=== PATIENT | female | born 1970 | race Caucasian/White ===

== ENCOUNTER 2016-03-17 16:53 | Emergency (ER) | payer OTHER ==
[~2016-03-17] VITALS: Ht 157.5 cm; Wt 68.9 kg
[~2016-03-17 16:53] MED LIST: CARB25TA12 PO; CLON1TAB3 PO; CYCL5TAB PO; DIPH25CA37 PO; DULO-24 PO; ESCI1TAB6 PO; IBUP-103 PO; LTH300C PO; MECL1TAB42 PO; NAPR1CAP12 PO; PANT1TAB48 PO; PRAZ1CAP28 PO; RANI300T PO; SIMV40TA2 PO
[2016-03-17 16:57] VITALS: TEMP 37; Ht 157.5 cm; Wt 68.9 kg
[2016-03-17] MEDS ORDERED: ACETAMINOPHEN 500 MG TAB PO STA (17:08)
[2016-03-17] MEDS ORDERED: KETOROLAC TROMETHAMINE 30 MG/ML VIAL IV STA (17:08)
[2016-03-17] MEDS ORDERED: SODIUM CHLORIDE 0.9% 1000ML 1,000 ML IV STA (17:08)
[2016-03-17] MEDS ORDERED: HYDROmorphone INJ 1 MG/ML SYR IV STA (17:08)
--- NOTE | 2016-03-17 17:14 | EMERGENCY ROOM VISIT NOTE ---
History Report prepared by Wiliam: Forest Davila Under the Supervision of: Dr. Queta Yuen M.D. 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 She states she was standing on a cardboard boxes while trying to stack other cardboard boxes when she lost her balance and fell onto her buttock. She adds that boxes fell on top of her after she fell. She reports falling from a height of about 8 to 10 feet, and denies hitting her head as her friend was able to somewhat catch her. She fell mostly on her left side. The patient notes feeling numbness and burning down her legs into her feet and toes, left worse than right. She denies taking any blood thinners. 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 The patient denies head pain. Review of Systems See HPI for pertinent positives & negatives. A total of 10 systems reviewed and were otherwise negative. Past Medical & Surgical Medical Problems: (1) Anxiety (2) Depression (3) History of - section (4) Hyperlipidemia Family History Diabetes mellitus FH: cancer FH: gallbladder disease FH: heart disease Hypertension Kidney disease Kidney stones Social History Smoking Status: Current Every Day Smoker Alcohol Use: occasionally Marital Status: Housing Status: lives with family Occupation Status: unemployed Current/Historical Medications Scheduled Carbidopa/Levodopa (Sinemet 25MG/100MG), 1 TAB PO HS Doxycycline Hyclate (Doxycycline Hyclate), 100 TAB PO BID Escitalopram Oxalate (Lexapro), Unknown Dose PO DAILY [place] Carbonate ([place] Carbonate), 300 MG PO BID Pantoprazole (Protonix), 40 MG PO DAILY Prazosin Hcl (Prazosin), 2 MG PO HS Ranitidine Hcl (Zantac), 300 MG PO BID Simvastatin (Zocor), 40 MG PO QPM Scheduled PRN Clonazepam (Klonopin), 1 MG PO TID PRN for Anxiety Cyclobenzaprine Hcl (Flexeril), 5 MG PO TID PRN for Muscle Spasm Diphenhydramine Hcl (Sleep) (Diphenhydramine Hcl), 50 TAB PO HS PRN for ALLERGIES Ibuprofen Tab (Advil), 200-400 MG PO UD PRN for Pain Meclizine Hcl (Meclizine Hcl), 25 MG PO TID PRN for Dizziness or Vertigo Naproxen Sodium (Aleve), 220 MG PO UD PRN for Pain Oxycodone/Acetaminophen 5MG/325MG (Percocet 5MG/325MG), 1-2 TABLETS PO Q4H PRN for Pain Allergies Coded Allergies: Adhesives (Verified Allergy, Mild, 03/17/16) Penicillins (Verified Allergy, Mild, HIVES, 03/17/16) Sulfa Drugs (Unverified Allergy, Unknown, hives, 03/17/16) Physical Exam Vital Signs Date Time Temp Pulse Resp B/P Pulse Ox O2 Delivery O2 Flow Rate FiO2 03/17/16 18:40 65 19 115/67 95 Room Air 03/17/16 16:57 37.0 91 18 155/92 95 Room Air Physical Exam CONSTITUTIONAL: Patient is in moderate painful distress. HEENT: No icterus, moist mucous membranes NECK: No meningismus, trachea is midline. CARDIOVASCULAR: Regular rate, normal perfusion RESPIRATORY: Unlabored breathing. Clear to auscultation. GASTROINTESTINAL: Non-tender GENITOURINARY: No flank tenderness MUSCULOSKELETAL: Full range of motion. Moderate midline of lumbar spine and tailbone tenderness. NEUROLOGIC: No acute gross focal deficits. PSYCHIATRIC: Normal affect SKIN: Normal for ethnicity. Medical Decision & Procedures ER Provider Diagnostic Interpretation: CT results as stated below per my review and radiologist interpretation. LUMBAR SPINE CT FINDINGS: No fractures. No subluxation. Paraspinal soft tissues are unremarkable. There is a small gallstone present. Evaluation the central canal is suboptimal due to the CT technique. However, there appears to be mild central canal narrowing at L4-L5 and L5-S1 due to a disc bulge and ligamentum and facet hypertrophy. This spaces are preserved. IMPRESSION: No fractures within the lumbar spine. Electronically signed by: Dustin Harris M.D. 03/17/2016 7:02 PM Dictated Date/Time: 03/17/2016 6:[address] FINDINGS: No fracture or dislocation within the pelvis or hips. The sacrum is intact. There are mild degenerative changes within the left sacroiliac joint. No evidence for soft tissue hematoma. IMPRESSION: No fracture or dislocation within the pelvis or hips. Electronically signed by: Dustin Harris M.D. 03/17/2016 7:06 PM Dictated Date/Time: 03/17/2016 7:02 PM Laboratory Results 03/17/16 17:05 Red Blood Count 4.34, Mean Corpuscular Volume 95.6, Mean Corpuscular Hemoglobin 33.9, Mean Corpuscular Hemoglobin Concent 35.4, Mean Platelet Volume 11.8, Neutrophils (%) (Auto) 63.1, Lymphocytes (%) (Auto) 29.5, Monocytes (%) (Auto) 4.7, Eosinophils (%) (Auto) 1.8, Basophils (%) (Auto) 0.8, Neutrophils # (Auto) 4.91, Lymphocytes # (Auto) 2.30, Monocytes # (Auto) 0.37, Eosinophils # (Auto) 0.14, Basophils # (Auto) 0.06 03/17/16 17:05 Test 03/17/16 17:05 03/17/16 17:13 White Blood Count 7.79 K/uL (4.8-10.8) Red Blood Count 4.34 M/uL (4.2-5.4) Hemoglobin 14.7 g/dL (12.0-16.0) Hematocrit 41.5 % (37-47) Mean Corpuscular Volume 95.6 fL (80-100) Mean Corpuscular Hemoglobin 33.9 pg (25-34) Mean Corpuscular Hemoglobin Concent 35.4 g/dl (32-36) Platelet Count 284 K/uL (130-400) Mean Platelet Volume 11.8 fL (7.4-10.4) Neutrophils (%) (Auto) 63.1 % Lymphocytes (%) (Auto) 29.5 % Monocytes (%) (Auto) 4.7 % Eosinophils (%) (Auto) 1.8 % Basophils (%) (Auto) 0.8 % Neutrophils # (Auto) 4.91 K/uL (1.4-6.5) Lymphocytes # (Auto) 2.30 K/uL (1.2-3.4) Monocytes # (Auto) 0.37 K/uL (0.11-0.59) Eosinophils # (Auto) 0.14 K/uL (0-0.5) Basophils # (Auto) 0.06 K/uL (0-0.2) RDW Standard Deviation 45.6 fL (36.4-46.3) RDW Coefficient of Variation 12.9 % (11.5-14.5) Immature Granulocyte % (Auto) 0.1 % Immature Granulocyte # (Auto) 0.01 K/uL (0.00-0.02) Anion Gap 11.0 mmol/L (3-11) Est Creatinine Clear Calc Drug Dose 73.4 ml/min Estimated GFR () 91.4 Estimated GFR (Non- 78.8 BUN/Creatinine Ratio 12.5 (10-20) Calcium Level 8.9 mg/dl (8.5-10.1) Ethyl Alcohol mg/dL < 3.0 mg/dl (0-3) Urine Color DK YELLOW Urine Appearance CLOUDY (CLEAR) Urine pH 5.0 (4.5-7.5) Urine Specific [place] 1.022 (1.000-1.030) Urine Protein NEG (NEG) Urine Glucose (UA) NEG (NEG) Urine Ketones TRACE (NEG) Urine Occult Blood 2+ (NEG) Urine Nitrite NEG (NEG) Urine Bilirubin NEG (NEG) Urine Urobilinogen NEG (NEG) Urine Leukocyte Esterase NEG (NEG) Urine WBC (Auto) 5-10 /hpf (0-5) Urine RBC (Auto) 10-30 /hpf (0-4) Urine Hyaline Casts (Auto) 1-5 /lpf (0-5) Urine Epithelial Cells (Auto) >30 /lpf (0-5) Urine Bacteria (Auto) NEG (NEG) Urine Renal Epithelial Cells 0-5 /lpf (0-5) Urine Pathogenic Casts /lpf (0) Urine Mucus PRESENT (NONE PRSENT) Urine Yeast (Auto) (NONE PRSENT) Urine Opiates Screen NEG (NEG) Urine Methadone, Qualitative NEG (NEG) Urine Barbiturates NEG (NEG) Urine Phencyclidine (PCP) Level NEG (NEG) Ur Amphetamine/Methamphetamine NEG (NEG) MDMA (Ecstasy) Screen NEG (NEG) Urine Benzodiazepines Screen NEG (NEG) Urine Cocaine Metabolite NEG (NEG) Urine Marijuana (THC) NEG (NEG) Labs reviewed by ED physician. Medications Administered Medications (Trade) Dose Ordered Sig/Teddy Route Start Time Stop Time Status Last Admin Dose Admin Acetaminophen 1000 mg 1,000 mg NOW STAT PO 03/17/16 17:08 03/17/16 17:09 DC 03/17/16 17:34 1,000 MG Sodium Chloride (Nss 1000ml) 1,000 ml @ 0 mls/hr Q0M STAT IV 03/17/16 17:08 03/17/16 17:09 DC 03/17/16 17:34 999 MLS/HR Ketorolac Tromethamine (Toradol Inj) 30 mg NOW STAT IV 03/17/16 17:08 03/17/16 17:09 DC 03/17/16 17:08 30 MG Hydromorphone HCl (Dilaudid Inj) 1 mg PRN STAT IV 03/17/16 17:08 03/17/16 17:09 DC 03/17/16 17:35 1 MG ED Course 1702: Past medical records reviewed. The patient was evaluated in room A12A. A complete history and physical examination was performed. 1708: Ordered Dilaudid Inj 1 mg IV, Toradol Inj 30 mg IV, NSS 1,000 ml @ 0 mls/ hr Wide Open IV, and Tylenol Tab 1,000 mg PO. 1930: Upon reexamination the patient is hemodynamically stable. I discussed results and treatment plan with the patient. She verbalizes agreement and understanding. The patient is ready for discharge. Medical Decision Differentials include fracture, and spinal cord injury. 46-year-old presents to the emergency room after work-related injury. She reports she was on top of several boxes and moving them when she fell backwards roughly 8 feet striking her buttox. One of her coworkers partially caught her and there was subsequently no head nor other extremity injuries. She complains only of lower L spine and tailbone pain especially with walking. She is neurologically intact with 2+ patellar reflexes and good dorsiflexion of the toes bilaterally without neurologic sensory deficits. CTs were negative for fracture patient was subsequently discharged and given prescription for Percocet. Impression Primary Impression: Contusion Additional Impressions: Contusion of multiple sites Fall Scribe Attestation The scribe's documentation has been prepared under my direction and personally reviewed by me in its entirety. I confirm that the note above accurately reflects all work, treatment, procedures, and medical decision making performed by me. Departure Information Dispostion Home / Self-Care Prescriptions Oxycodone/Acetaminophen 5MG/325MG (PERCOCET 5MG/325MG) Tab 1-2 TABLETS PO Q4H Y for Pain, #20 TAB Prov: Queta Yuen MD 03/17/16 Referrals Tuyet Griffith D.O. (PCP) Patient Instructions ED Contusion Back, My [facility] Problem Qualifiers
[2016-03-17 17:32] LABS: BASO % 0.8 %; BASO ABS # 0.06 K/uL (0-0.2); COMPLETE YES; EOS % 1.8 %; HEMATOCRIT 41.5 % (37-47); IG% 0.1 %; LYMPH % 29.5 %; MEAN CELL VOLUME 95.6 fL (80-100); MEAN CORPUSCULAR HEMOGLOBIN 33.9 pg (25-34); MEAN CORPUSCULAR HGB CONC 35.4 g/dl (32-36); MEAN PLATELET VOLUME 11.8 fL (7.4-10.4); MONO % 4.7 %; NEUT % 63.1 %; PLATELET COUNT 284 K/uL (130-400); RED BLOOD COUNT 4.34 M/uL (4.2-5.4); WHITE BLOOD COUNT 7.79 K/uL (4.8-10.8)
[2016-03-17 17:51] LABS: BUN/CREATININE RATIO 12.5 (10-20); CALCIUM 8.9 mg/dl (8.5-10.1); CREATININE 0.89 mg/dl (0.60-1.20); POTASSIUM 3.4 mmol/L (3.5-5.1)
[2016-03-17] MEDS ORDERED: DOXY100T PO (18:11)
[2016-03-17] MEDS ORDERED: DIPH50TA10 PO (18:11)
--- NOTE | 2016-03-17 19:03 | DIAGNOSTIC IMAGING REPORT ---
LUMBAR SPINE CT CT DOSE: HISTORY: Low back pain. fall 10ft TECHNIQUE: Multiaxial CT images of the lumbar spine were performed and reformatted in the sagittal and coronal plane without the use of contrast. COMPARISON: None. FINDINGS: No fractures. No subluxation. Paraspinal soft tissues are unremarkable. There is a small gallstone present. Evaluation the central canal is suboptimal due to the CT technique. However, there appears to be mild central canal narrowing at L4-L5 and L5-S1 due to a disc bulge and ligamentum and facet hypertrophy. This spaces are preserved. IMPRESSION: No fractures within the lumbar spine. Electronically signed by: Dustin Harris M.D. 03/17/2016 7:02 PM Dictated Date/Time: 03/17/2016 6:57 PM
[2016-03-17 19:07] LABS: URINE APPEARANCE CLOUDY (CLEAR); URINE BILIRUBIN NEG (NEG); URINE COLOR DK YELLOW; URINE EPITHELIAL CELL AUTO >30 /lpf (0-5); URINE NITRITE NEG (NEG); URINE SPECIFIC GRAVITY 1.022 (1.000-1.030); UROBILINOGEN NEG (NEG)
--- NOTE | 2016-03-17 19:08 | DIAGNOSTIC IMAGING REPORT ---
PELVIS CT CT DOSE: 1264.47 mGy.cm HISTORY: Pelvic pain. fall 10ft TECHNIQUE: Multiaxial CT images of the pelvis were performed and reformatted in the sagittal and coronal plane without the use of contrast. COMPARISON: Abdomen and pelvis CT 01/04/2013. FINDINGS: No fracture or dislocation within the pelvis or hips. The sacrum is intact. There are mild degenerative changes within the left sacroiliac joint. No evidence for soft tissue hematoma. IMPRESSION: No fracture or dislocation within the pelvis or hips. Electronically signed by: Dustin Harris M.D. 03/17/2016 7:06 PM Dictated Date/Time: 03/17/2016 7:02 PM
[2016-03-17 19:13] LABS: MANUAL MICROSCOPIC REQUIRED? NO; REVIEW REQ? YES
[2016-03-17 19:18] LABS: URINE MUCUS PRESENT (NONE PRSENT)
[2016-03-17 19:27] LABS: BENZODIAZEPINE, URINE NEG (NEG); COCAINE,URINE NEG (NEG); PHENCYCLIDINE, URINE NEG (NEG)
[2016-03-17] MEDS ORDERED: OXYC-57 PO (19:28)
[2016-03-17 19:58] VITALS: BP 137/90; PULSE 72; O2SAT 94
== END 2016-03-17 19:58 | disposition home or self-care (01) ==
LOC: C.EDB 16:54 → C.EDA 19:58
DX: T14.8 Other injury of unspecified body region (principal); W19.XXXA Unspecified fall, initial encounter; E78.5 Hyperlipidemia, unspecified; F17.200 Nicotine dependence, unspecified, uncomplicated

== ENCOUNTER 2017-10-16 12:46 | Inpatient (IN) | payer OTHER ==
[~2017-10-16] VITALS: Ht 167.6 cm; Wt 75.4 kg
[~2017-10-16 12:46] MED LIST changes: -CLON1TAB3 PO; +CLON1TAB4 PO; -DIPH25CA37 PO; +DIPH50TA10 PO; +DOXY100T PO; -DULO-24 PO; +PANT1TAB3 PO; -PANT1TAB48 PO
[2017-10-16 13:24] LABS: BASO % 0.5 %; BASO ABS # 0.04 K/uL (0-0.2); EOS % 2.8 %; EOS ABS # 0.25 K/uL (0-0.5); HEMATOCRIT 43.6 % (37-47); IG# 0.01 K/uL (0.00-0.02); LYMPH % 26.9 %; LYMPH ABS # 2.37 K/uL (1.2-3.4); MEAN CELL VOLUME 97.8 fL (80-100); MEAN CORPUSCULAR HEMOGLOBIN 33.6 pg (25-34); MEAN CORPUSCULAR HGB CONC 34.4 g/dl (32-36); MEAN PLATELET VOLUME 11.6 fL (7.4-10.4); MONO ABS # 0.35 K/uL (0.11-0.59); NEUT % 65.7 %; PLATELET COUNT 303 K/uL (130-400); RED CELL DISTRIBUTION WIDTH CV 13.2 % (11.5-14.5); RED CELL DISTRIBUTION WIDTH SD 46.9 fL (36.4-46.3); WHITE BLOOD COUNT 8.82 K/uL (4.8-10.8)
--- NOTE | 2017-10-16 13:37 | DIAGNOSTIC IMAGING REPORT ---
CHEST ONE VIEW PORTABLE CLINICAL HISTORY: 47 years-old Female presenting with CHEST PAIN. TECHNIQUE: Portable upright AP view of the chest was obtained. COMPARISON: 02/09/2016. FINDINGS: Cardiomediastinal silhouette normal. No focal opacity. No large effusion or pneumothorax. Osseous structures normal. Upper abdomen normal. IMPRESSION: 1. No acute cardiopulmonary disease. Electronically signed by: Georges Bloom M.D. 10/16/2017 1:35 PM Dictated Date/Time: 10/16/2017 1:35 PM
[2017-10-16 13:48] LABS: ALBUMIN 3.6 gm/dl (3.4-5.0); ALKALINE PHOSPHATASE 179 U/L (45-117); ALT/SGPT 35 U/L (12-78); AST/SGOT 22 U/L (15-37); BLOOD UREA NITROGEN 6 mg/dl (7-18); CALCIUM 8.9 mg/dl (8.5-10.1); CARBON DIOXIDE 25 mmol/L (21-32); CREATININE 0.76 mg/dl (0.60-1.20); GLUCOSE 105 mg/dl (70-99); LIPASE 214 U/L (73-393); POTASSIUM 3.3 mmol/L (3.5-5.1); SODIUM 141 mmol/L (136-145); TOTAL PROTEIN 7.4 gm/dl (6.4-8.2)
[2017-10-16] MEDS ORDERED: POTASSIUM CHLORIDE 10 MEQ TABCR PO STA ×2 (14:11→23:09)
[2017-10-16] MEDS ORDERED: HEPARIN SOD (PORCINE) 1000 UNIT/ML 10 ML VIAL IV ONE (14:30)
[2017-10-16 14:36] LABS: PTT PATIENT 27.3 SECONDS (21.0-31.0)
[2017-10-16] MEDS ORDERED: ABL15 PO (14:38)
[2017-10-16] MEDS ORDERED: PROP40TA5 PO (14:38)
[2017-10-16] MEDS ORDERED: ATR25 PO (14:38)
[2017-10-16] MEDS ORDERED: VORT10TA12 PO (14:38)
[2017-10-16] MEDS ORDERED: PRAZ2CAP3 PO (14:38)
[2017-10-16] MEDS ORDERED: CARB25TA12 PO (14:39)
[2017-10-16] MEDS: HEPARIN 25,000 UNIT/500ML D5W 500 ML IV SCH ×2 (14:55→21:10)
[2017-10-16] MEDS ORDERED: NITROGLYCERIN 0.4 MG SL PER TAB CHARGE SL PRN (15:00)
[2017-10-16] MEDS ORDERED: ACETAMINOPHEN 325 MG TAB PO PRN (15:00)
[2017-10-16] MEDS ORDERED: IV FLUIDS COMPLETED PRN (15:15)
[2017-10-16] MEDS ORDERED: AMLODIPINE BESYLATE 5 MG TAB PO STA (15:19)
[2017-10-16 15:40] VITALS: BP 143/90; PULSE 69; TEMP 36.9; Ht 167.6 cm; Wt 75.4 kg
--- NOTE | 2017-10-16 15:40 | EMERGENCY ROOM VISIT NOTE ---
History Report prepared by Wiliam: Chani Garzon Under the Supervision of: Dr. Malcolm Young M.D. First contact with patient: 12:51 Stated Complaint: CP History of Present Illness The patient is a 47 year old female who presents to the Emergency Room with complaints of chest pain beginning yesterday afternoon. As per nursing staff, she was at [facility] yesterday and was walking around when she suddenly developed chest pain. It has been intermittent since then however, it worsened today while she was walking around the [facility]. Taking a deep breath worsens her pain and she has some left arm pain. She describes her chest pain as a pressure and as if "someone is sitting on her chest" The patient denies any SOB, fever, nausea, or vomiting. She has a family history of cardiac problems, is a current smoker, and takes Simvastatin for her high cholesterol. Dr. Gaming, Piercer Operator is her doctor. Source of History: patient Onset: yesterday afternoon Position: chest Quality: other (like "someone is sitting on her chest" ) Timing: intermittent Modifying Factors (Worsening): other (taking a deep breath) Associated Symptoms: No fevers, No nausea, No vomiting Review of Systems See HPI for pertinent positives and negatives. A total of ten systems were reviewed and were otherwise negative. Past Medical & Surgical Medical Problems: (1) Anxiety (2) Depression (3) History of - section (4) Hyperlipidemia (5) PTSD (post-traumatic stress disorder) (6) Restless leg syndrome (7) Tobacco abuse Surgical Problems: (1) History of arthroscopy of right knee (2) History of delivery (3) History of colonoscopy (4) History of recent dental procedure Family History Diabetes mellitus FH: cancer FH: gallbladder disease FH: heart disease Hypertension Kidney disease Kidney stones Social History Smoking Status: Current Every Day Smoker Alcohol Use: occasionally Marital Status: Housing Status: lives with family Occupation Status: unemployed Current/Historical Medications Scheduled Aripiprazole (Abilify), 15 MG PO DAILY Carbidopa/Levodopa (Sinemet 25MG/100MG), 1 TAB PO TID Pantoprazole (Protonix), 40 MG PO DAILY Prazosin Hcl (Prazosin), 2 MG PO HS Propranolol Hcl (Propranolol Hcl), 40 MG PO BID Ranitidine Hcl (Zantac), 150 MG PO BID Simvastatin (Zocor), 40 MG PO QPM Allergies Coded Allergies: Adhesives (Verified Allergy, Mild, 10/16/17) Penicillins (Verified Allergy, Mild, HIVES, 10/16/17) Sulfa Drugs (Unverified Allergy, Unknown, hives, 10/16/17) Physical Exam Vital Signs Date Time Temp Pulse Resp B/P (MAP) Pulse Ox O2 Delivery O2 Flow Rate FiO2 10/16/17 14:46 78 165/104 100 Room Air 10/16/17 14:04 84 150/100 97 Room Air 10/16/17 13:06 97 Room Air 10/16/17 13:06 96 Room Air 10/16/17 12:55 Room Air 10/16/17 12:55 37.1 71 20 167/98 Room Air 10/16/17 12:54 72 Physical Exam GENERAL: Awake, alert, well-appearing, in no distress HENT: Normocephalic, atraumatic. Oropharynx unremarkable. EYES: Normal conjunctiva. Sclera non-icteric. NECK: Supple. No nuchal rigidity. RESPIRATORY: Clear to auscultation. No wheezes. Normal respiratory effort. CARDIAC: Normal rate. Normal rhythm. Extremities warm and well perfused. GI: Soft, non-distended. No tenderness to palpation. No rebound or guarding. RECTAL: Deferred. MUSCULOSKELETAL: Atraumatic. Chest examination reveals no tenderness. LOWER EXTREMITIES: Calves are equal size bilaterally and non-tender. No edema NEURO: Normal sensorium. No sensory or motor deficits noted. No facial droop. SKIN: Warm and dry. No jaundice noted. Medical Decision & Procedures ER Provider Diagnostic Interpretation: Radiology results as stated below per my review and radiologist interpretation: CHEST ONE VIEW PORTABLE CLINICAL HISTORY: 47 years-old Female presenting with CHEST PAIN. TECHNIQUE: Portable upright AP view of the chest was obtained. COMPARISON: 02/09/2016. FINDINGS: Cardiomediastinal silhouette normal. No focal opacity. No large effusion or pneumothorax. Osseous structures normal. Upper abdomen normal. IMPRESSION: 1. No acute cardiopulmonary disease. Electronically signed by: Georges Bloom M.D. 10/16/2017 1:35 PM Laboratory Results 10/16/17 13:19 Red Blood Count 4.46, Mean Corpuscular Volume 97.8, Mean Corpuscular Hemoglobin 33.6, Mean Corpuscular Hemoglobin Concent 34.4, Mean Platelet Volume 11.6, Neutrophils (%) (Auto) 65.7, Lymphocytes (%) (Auto) 26.9, Monocytes (%) (Auto) 4.0, Eosinophils (%) (Auto) 2.8, Basophils (%) (Auto) 0.5, Neutrophils # (Auto) 5.80, Lymphocytes # (Auto) 2.37, Monocytes # (Auto) 0.35, Eosinophils # (Auto) 0.25, Basophils # (Auto) 0.04 10/16/17 13:19 Test 10/16/17 13:19 White Blood Count 8.82 K/uL (4.8-10.8) Red Blood Count 4.46 M/uL (4.2-5.4) Hemoglobin 15.0 g/dL (12.0-16.0) Hematocrit 43.6 % (37-47) Mean Corpuscular Volume 97.8 fL (80-100) Mean Corpuscular Hemoglobin 33.6 pg (25-34) Mean Corpuscular Hemoglobin Concent 34.4 g/dl (32-36) Platelet Count 303 K/uL (130-400) Mean Platelet Volume 11.6 fL (7.4-10.4) Neutrophils (%) (Auto) 65.7 % Lymphocytes (%) (Auto) 26.9 % Monocytes (%) (Auto) 4.0 % Eosinophils (%) (Auto) 2.8 % Basophils (%) (Auto) 0.5 % Neutrophils # (Auto) 5.80 K/uL (1.4-6.5) Lymphocytes # (Auto) 2.37 K/uL (1.2-3.4) Monocytes # (Auto) 0.35 K/uL (0.11-0.59) Eosinophils # (Auto) 0.25 K/uL (0-0.5) Basophils # (Auto) 0.04 K/uL (0-0.2) RDW Standard Deviation 46.9 fL (36.4-46.3) RDW Coefficient of Variation 13.2 % (11.5-14.5) Immature Granulocyte % (Auto) 0.1 % Immature Granulocyte # (Auto) 0.01 K/uL (0.00-0.02) Prothrombin Time 10.1 SECONDS (9.0-12.0) Prothromb Time International Ratio 1.0 (0.9-1.1) Activated Partial Thromboplast Time 27.3 SECONDS (21.0-31.0) Partial Thromboplastin Ratio 1.1 D-Dimer 400 ug/L FEU (0-500) Anion Gap 10.0 mmol/L (3-11) Est Creatinine Clear Calc Drug Dose 96.7 ml/min Estimated GFR () 109.8 Estimated GFR (Non- 94.7 BUN/Creatinine Ratio 7.9 (10-20) Calcium Level 8.9 mg/dl (8.5-10.1) Magnesium Level 2.3 mg/dl (1.8-2.4) Total Bilirubin 0.2 mg/dl (0.2-1) Direct Bilirubin < 0.1 mg/dl (0-0.2) Aspartate Amino Transf (AST/SGOT) 22 U/L (15-37) Alanine Aminotransferase (ALT/SGPT) 35 U/L (12-78) Alkaline Phosphatase 179 U/L (45-117) Total Creatine Kinase 94 U/L (26-192) Total Protein 7.4 gm/dl (6.4-8.2) Albumin 3.6 gm/dl (3.4-5.0) Lipase 214 U/L (73-393) Thyroid Stimulating Hormone (TSH) 1.930 uIu/ml (0.300-4.500) Free Thyroxine 1.11 ng/dl (0.80-1.60) Laboratory results reviewed by me Medications Administered Medications (Trade) Dose Ordered Sig/Teddy Route Start Time Stop Time Status Last Admin Dose Admin Heparin Sodium/ Dextrose 1 ea NOW STAT N/A 10/16/17 14:09 10/16/17 14:11 DC 10/16/17 14:09 1 EA Potassium Chloride (Klor-Con M10) 40 meq NOW STAT PO 10/16/17 14:11 10/16/17 14:18 DC 10/16/17 14:50 40 MEQ Heparin Sodium/ Dextrose 500 ml @ 24 mls/hr [id number] IV 10/16/17 14:30 11/15/17 14:29 10/16/17 14:55 16 MLS/HR Heparin Sodium (Porcine) (Heparin Iv Bolus) 4,000 unit NOW ONCE IV 10/16/17 14:30 10/16/17 14:31 DC 10/16/17 14:51 4,000 UNIT ECG Per My Interpretation Indication: chest pain Rate (beats per minute): 65 Rhythm: normal sinus Findings: no ectopy (normal intervals, no ST segment elevation, Lead III T- wave flattening) Comparison ECG Date: 02/09/16 Change: no significant change ED Course 1253: The patient was evaluated in room C5. A complete history and physical exam was performed. 1408: Discussed the patient's case with MARTY Richardson. The patient will be evaluated for further treatment and disposition. Medical Decision Triage Nursing notes reviewed. Differential diagnosis: Etiologies such as cardiac ischemia, aortic dissection, pulmonary embolism, pneumonia, pneumothorax, musculoskeletal, infections, pericarditis, myocarditis , esophageal rupture, gastrointestinal, as well as others were entertained. Patient presents after intermittent left upper chest pain described as a pressure over the last day. No shortness of breath associated. No trauma associated. Did do some lifting yesterday but not reproducible on palpation or with movement of the arm. Significant family history of cardiac disease early along with personal history of hyperlipidemia and tobacco use. States her brother had a heart attack in his early 50s. Given aspirin prior to arrival but does not take regularly. Pain-free upon evaluation. D-dimer was sent with lower suspicion for PE. EKG here without significant change however prehospital EKG does show some suspected lead III T-wave inversions/ST depression and aVF ST depression. This was taken half an hour prior to arrival when she was experiencing the pain. Chest x-ray completed without acute findings and doubt dissection. D-dimer negative. Doubt intra-abdominal complaints. Less likely gastric. Troponin positive however the patient without active chest pain now. Will start IV heparin at this time given clinical concern. Patient already received aspirin. Will admit for further cardiac evaluation. Medication Reconcilliation Current Medication List: was personally reviewed by me Blood Pressure Screening Patient's blood pressure: Elevated blood pressure Referred to Hospitalist Consults Time Called: 1406 Consulting Physician: MARTY Richardson Returned Call: 1408 Discussed the patient's case with MARTY Richardson. The patient will be evaluated for further treatment and disposition. Impression Primary Impression: NSTEMI (non-ST elevated myocardial infarction) Critical Care I have personally spent greater than 30 minutes of critical care time in the direct management of this patient. This includes bedside care, interpretation of diagnostic studies, and testing, discussion with consultants, patient, and family members, and other required patient management activities. This 30 minutes is in excess of all separately billable procedures. Scribe Attestation The scribe's documentation has been prepared under my direction and personally reviewed by me in its entirety. I confirm that the note above accurately reflects all work, treatment, procedures, and medical decision making performed by me. Departure Information Dispostion Being Evaluated By Hospitalist (MARTY Richardson)
--- NOTE | 2017-10-16 15:57 | CARDIOLOGY CONSULTATION ---
DATE OF CONSULTATION: 10/16/2017 INPATIENT CONSULTATION CONSULTATION REQUESTED BY: Dr. Caceres. REASON FOR CONSULTATION: Chest pain. HISTORY OF PRESENT ILLNESS: Mrs. Holcomb is a 47-year-old woman who presented to [facility] Emergency Department on 10/16/2017 with a complaint of chest discomfort. The patient states that her chest discomfort started approximately 24 hours prior to presentation. She states that [facility], [facility] she suddenly developed chest discomfort. She described it as a dull achy/pressure sensation over her left breast that radiated up into her left shoulder. It was associated with some lightheadedness and dizziness; however, she denied any associated shortness of breath, diaphoresis, nausea, palpitations or syncope. She states the discomfort was noticeable, but not severe enough that made her stop walking. She continued on shopping and after about 3 minutes, the discomfort resolved. She states that then came back a few minutes later and continued to wax and wane for moments at a time, off and on until this morning. This morning, the pain continued, but while she was at the [employer], she did not feel well overall and came into the Emergency Department. In the Emergency Department, her EKG was performed and was unremarkable; however, initial troponin was minimally elevated at 0.45 and she was started on heparin drip by the ER team. Also of note, upon presentation, her blood pressure has been elevated, initially 167/98 followed by 150/100, followed by 145/110. Currently, she is without complaint at rest and states that she is not in any discomfort for approximately the last hour. She also denies any previously similar episodes. PAST SURGICAL HISTORY: 1. Tubal ligation. 2. Upper endoscopy. 3. . 4. Arthroscopic knee procedure. MEDICAL ILLNESSES: 1. Tobacco abuse. 2. Dyslipidemia. 3. Depression. 4. Restless leg syndrome. FAMILY HISTORY: Remarkable for father and brother both developed coronary artery disease in their 50s. SOCIAL HISTORY: The patient is a lifelong smoker and continues to smoke a pack a day. Denies any alcohol or recreational drug use. She is . She has 4 children. 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 REVIEW OF SYSTEMS: As per HPI. All other review of systems reviewed and negative at this time. ALLERGIES: 1. PENICILLIN. 2. ADHESIVE TAPE. MEDICATIONS AN OUTPATIENT: 1. Prazosin 2 mg at bedtime. 2. Lexapro daily. 3. Abilify daily. 4. Simvastatin 40 mg daily. 5. Sinemet 3 times a day. 6. Ranitidine b.i.d. PHYSICAL EXAMINATION: VITALS: Temperature 37.1, pulse 84, respiratory rate 12, blood pressure 145/110. GENERAL: Awake, alert, oriented x3, in no acute distress. HEENT: Normocephalic, atraumatic. Pupils equal, round, reactive to light and accommodation. Extraocular muscles intact. Anicteric sclerae. Moist mucous membranes. Poor dentition. NECK: No JVD, no bruit. CARDIOVASCULAR: Regular. No S4. Normal S1 and S2. No S3. No murmurs, rubs or gallops. PULMONARY: Decreased breath sounds bilaterally, but clear. No rales, rhonchi, or wheezing. ABDOMEN: Bowel sounds x4, soft. No rebound, guarding, tenderness. No organomegaly. EXTREMITIES: No clubbing, cyanosis or edema. +2 pedal pulses bilaterally. SKIN: Warm and dry. TEST RESULTS: A 12-lead EKG performed in the Emergency Department independently reviewed at this time shows normal sinus rhythm at 65 beats per minute, normal axis, normal intervals, no signs of ischemia, normal study. LABORATORY STUDIES OF SIGNIFICANCE: Sodium 141, potassium 3.3, BUN 6, creatinine 0.76. Troponin of 0.45. Alkaline phosphatase of 179. IMPRESSION: 1. Chest discomfort. 2. Uncontrolled hypertension. 3. Tobacco abuse. 4. Family history of premature coronary artery disease. RECOMMENDATIONS: It was my pleasure to see Mrs. Holcomb in consultation today. The patient was counseled on the possible differential diagnosis of her chest discomfort including ischemic disease as well as possible hypertensive urgency. So given the fact the patient is pain free at this time, I will continue heparin drip until a second set comes back, and should it start to trend down, it can be discontinued. So I believe there may be hypertensive component to this. So, she will be started on amlodipine low dose 2.5 mg and her blood pressure will be followed. Otherwise, a 2D echocardiogram will be performed now to evaluate for any regional wall motion abnormalities and ____ significant wall motion abnormalities be present, then cardiac catheterization will be performed and the timing of which will be based on her symptoms. Otherwise, absolute smoking cessation was counseled.
--- NOTE | 2017-10-16 15:59 | History and Physical ---
History & Physical Date & Time of Service: Oct 16, 2017 at 15:05 Chief Complaint: CP Primary Care Physician: Radha Gaming DO History of Present Illness Source: patient This is a 47-year-old female who has a significant PMH of HLD, anxiety, depression, PTSD, RLS, GERD who presented to [facility] with intermittent chest pain 1 day. Chest pain initially started yesterday afternoon, was intermittent in nature, lasting 10-15 minutes, substernal with left arm radiation and tingling, occurring at rest and when exerting herself, like walking. Today patient was walking at [facility] when she developed substernal chest pain that radiated to her left arm, lasted approximately 10-15 minutes, resolved with rest. With chest pain episodes she denies shortness of breath, palpitations, hemopytsis, lightheadedness, dizziness, fever, chills, sweats, change in vision, change in hearing, nausea, vomiting, diarrhea, change in bowel or bladder habits. Patient arrived via EMS, on site was given 4 chewable baby aspirin. Upon presenting to ED chest pain had subsided; however ECG [employer] revealed subtle inferior lead ST depressions. Initial troponin was elevated at 0.447, heparin drip initiated. Further lab work revealed negative d -dimer, relatively unremarkable CBC and BMP except hypokalemia at 3.3. Chest x- ray showed no acute cardiopulmonary abnormality. Throughout ED she was hypertensive with BP 150s/100s. Patient is being admitted for further workup of chest pain, HTN and elevated troponin. Past Medical/Surgical History Medical Problems: (1) Anxiety Status: Chronic (2) Depression Status: Chronic (3) Hyperlipidemia Status: Chronic (4) PTSD (post-traumatic stress disorder) Status: Chronic (5) Restless leg syndrome Status: Chronic (6) Tobacco abuse Status: Chronic Surgical Problems: (1) History of arthroscopy of right knee Status: Chronic (2) History of delivery Status: Chronic (3) History of colonoscopy Status: Chronic (4) History of recent dental procedure Status: Chronic Family History Diabetes mellitus FH: cancer FH: cerebral palsy SISTER FH: gallbladder disease FH: heart disease FATHER, Onset:50's - 60 BROTHER, Onset:50's - 60 Hypertension Kidney disease Kidney stones Social History Smoking Status: Current Every Day Smoker (30 pack year history) Smokeless Tobacco Use: No Alcohol Use: none Drug Use: none Housing status: lives with family Occupational Status: unemployed Immunizations History of Influenza Vaccine: Yes Influenza Vaccine Date: Nov 19, 2016 History of Tetanus Vaccine?: Yes Tetanus Immunization Date: Oct 10, 2009 History of Pneumococcal: Yes Pneumococcal Date: May 09, 2008 History of Hepatitis B Vaccine: Unknown Allergies Coded Allergies: Adhesives (Verified Allergy, Mild, 10/16/17) Penicillins (Verified Allergy, Mild, HIVES, 10/16/17) Sulfa Drugs (Unverified Allergy, Unknown, hives, 10/16/17) Home Medications Scheduled Aripiprazole (Abilify), 15 MG PO DAILY Carbidopa/Levodopa (Sinemet 25MG/100MG), 1 TAB PO TID Pantoprazole (Protonix), 40 MG PO DAILY Prazosin Hcl (Prazosin), 2 MG PO HS Propranolol Hcl (Propranolol Hcl), 40 MG PO BID Ranitidine Hcl (Zantac), 150 MG PO BID Simvastatin (Zocor), 40 MG PO QPM Review of Systems As noted per HPI, 10 systems reviewed and negative unless noted above. Physical Exam Vital Signs Date Time Temp Pulse Resp B/P (MAP) Pulse Ox O2 Delivery O2 Flow Rate FiO2 10/16/17 14:04 84 150/100 97 Room Air 10/16/17 13:06 97 Room Air 10/16/17 13:06 96 Room Air 10/16/17 12:55 Room Air 10/16/17 12:55 37.1 71 20 167/98 Room Air 10/16/17 12:54 72 General Appearance: WD/WN, no apparent distress, + pertinent finding (poorly groomed, requesting to go outside and smoke, engaging on phone during H and P) Head: normocephalic, atraumatic Eyes: normal inspection, sclerae normal ENT: normal ENT inspection, hearing grossly normal, + pertinent finding ( Mucous membranes moist, teeth absent) Neck: supple, no adenopathy, thyroid normal, no JVD Respiratory/Chest: chest non-tender, lungs clear, normal breath sounds, no respiratory distress, no accessory muscle use Cardiovascular: regular rate, rhythm, no edema, no gallop, no JVD, + systolic murmur (Soft 1/6 LASHON noted RUSB/LUSB) Abdomen/GI: normal bowel sounds, non tender, soft, no organomegaly Back: normal inspection, no muscle spasm Neurologic/Psych: no motor/sensory deficits, alert, normal mood/affect, oriented x 3 Skin: normal color, warm/dry, no rash Diagnostics Laboratory Results Results Past 24 Hours Test 10/16/17 13:19 Range/Units White Blood Count 8.82 4.8-10.8 K/uL Red Blood Count 4.46 4.2-5.4 M/uL Hemoglobin 15.0 12.0-16.0 g/dL Hematocrit 43.6 37-47 % Mean Corpuscular Volume 97.8 80-100 fL Mean Corpuscular Hemoglobin 33.6 25-34 pg Mean Corpuscular Hemoglobin Concent 34.4 32-36 g/dl Platelet Count 303 130-400 K/uL Mean Platelet Volume 11.6 7.4-10.4 fL Neutrophils (%) (Auto) 65.7 % Lymphocytes (%) (Auto) 26.9 % Monocytes (%) (Auto) 4.0 % Eosinophils (%) (Auto) 2.8 % Basophils (%) (Auto) 0.5 % Neutrophils # (Auto) 5.80 1.4-6.5 K/uL Lymphocytes # (Auto) 2.37 1.2-3.4 K/uL Monocytes # (Auto) 0.35 0.11-0.59 K/uL Eosinophils # (Auto) 0.25 0-0.5 K/uL Basophils # (Auto) 0.04 0-0.2 K/uL RDW Standard Deviation 46.9 36.4-46.3 fL RDW Coefficient of Variation 13.2 11.5-14.5 % Immature Granulocyte % (Auto) 0.1 % Immature Granulocyte # (Auto) 0.01 0.00-0.02 K/uL Prothrombin Time 10.1 9.0-12.0 SECONDS Prothromb Time International Ratio 1.0 0.9-1.1 Activated Partial Thromboplast Time 27.3 21.0-31.0 SECONDS Partial Thromboplastin Ratio 1.1 D-Dimer 400 0-500 ug/L FEU Sodium Level 141 136-145 mmol/L Potassium Level 3.3 3.5-5.1 mmol/L Chloride Level 106 98-107 mmol/L Carbon Dioxide Level 25 21-32 mmol/L Anion Gap 10.0 3-11 mmol/L Blood Urea Nitrogen 6 7-18 mg/dl Creatinine 0.76 0.60-1.20 mg/dl Est Creatinine Clear Calc Drug Dose 96.7 ml/min Estimated GFR () 109.8 Estimated GFR (Non- 94.7 BUN/Creatinine Ratio 7.9 10-20 Random Glucose 105 70-99 mg/dl Calcium Level 8.9 8.5-10.1 mg/dl Magnesium Level 2.3 1.8-2.4 mg/dl Total Bilirubin 0.2 0.2-1 mg/dl Direct Bilirubin < 0.1 0-0.2 mg/dl Aspartate Amino Transf (AST/SGOT) 22 15-37 U/L Alanine Aminotransferase (ALT/SGPT) 35 12-78 U/L Alkaline Phosphatase 179 45-117 U/L Troponin I 0.447 0-0.045 ng/ml Total Protein 7.4 6.4-8.2 gm/dl Albumin 3.6 3.4-5.0 gm/dl Lipase 214 73-393 U/L Thyroid Stimulating Hormone (TSH) 1.930 0.300-4.500 uIu/ml Free Thyroxine 1.11 0.80-1.60 ng/dl CXR normal EKG Initial ECG done [employer] showed ST depression lead III, normal ventricular rate 77bpm ECG done in ED showed no ST Twave changes, vent rate 65bpm Impression Assessment and Plan This is a 47-year-old female who has a significant PMH of HLD, anxiety, depression, PTSD, RLS, GERD, who presented to [facility] with intermittent chest pain 1 day. Patient arrived via EMS, on site was given 4 chewable baby aspirin. Upon presenting to ED chest pain had subsided; however ECG [employer] revealed subtle inferior lead ST depressions. Initial troponin was elevated at 0.447, heparin drip initiated. Further lab work revealed negative d -dimer, relatively unremarkable CBC and BMP except hypokalemia at 3.3. Chest x- ray showed no acute cardiopulmonary abnormality. Throughout ED she was hypertensive with BP 150s/100s. Patient is being admitted for further workup of chest pain, HTN and elevated troponin. CHEST PAIN/ELEVATED TROPONIN FHX OF CAD ? if true NSTEMI vs elevated troponin in setting of HTN -admit to med/surg telemetry for ACS r/o -Echo 2D -Heparin gtt started in ED -trend troponin, if second troponin trends down okay to stop heparin gtt -Initiate daily ASA 81mg daily due to risk factors -Continue Statin -Check fasting lipid panel in a.m. HTN no previous dx of HTN; however severely hypertensive on admission -amlodipine 2.5mg x 1 now HYPOKALEMIA -replete with 40meq po x 1 now, repeat K at 1900 HLD -continue statin -fasting lipid panel in a.m. TOBACCO ABUSE -encourage smoking cessation -refuses Nicotine patch DEPRESSION ANXIETY PTSD -continue Abilify, prazosin for night terrors RLS -continue Sinemet GERD -continue ranitidine and protonix DISPOSITION discharge to home when medically able Attending Note: Patient is a 47 yr female with multiple comorbidities presents with intermittent substernal chest pain radiating to left arm since one day duration. She admits to recovering from a headache which started 2 days ago. She was found to have elevated blood pressure. Initial Troponin is elevated at 0.44. EKG did not show any signs of Ischemia. CXR showed No acute cardiopulmonary disease. She is current smoker. She was started on IV Heparin in ED. Currently chest pain free. Physical Exam: Vitals signs as noted above General Appearance:Moderately built and nourished, no apparent distress Head: normocephalic, Atraumatic Eyes: normal inspection, EOMI Neck: supple, Trachea midline Respiratory/Chest: Normal breath sounds, CTA Cardiovascular: S1, S2, No murmur Abdomen/GI:Soft, Non tender, Bowel sounds present Extremities/Musculoskelatal:normal inspection, no edema Neurologic/Psych:AAOX3, grossly no focal neurological deficits Skin:normal color,warm Assessment and Plan: Chest Pain: R/O ACS Hypertensive Urgency Initial troponin:0.44 Troponin elevated likely 2/2 Hypertensive Urgency EKG: No signs of Acute Ischemia CXR: Unremarkable Thyroid function test normal Check ECHO for wall motion abnormality Trend serial cardiac enzymes, repeat EKG, fasting lipid panel in AM Start Aspirin, statins Oxygen PRN Started on IV Heparin NPO after midnight Plan to DC IV Heparin if troponin trends down Started on Amlodipine 2.5 mg Plan to give Amlodipine 2.5 mg tonight if BP >140/100 Appreciate Cardiology Input I personally reviewed the record. Patient is interviewed and examined at bedside. Patient's care is coordinated with Sandra Yu PA-C. Please refer to the documentation above for details of patient's presentation and for discussion of other issues. Resuscitation Status Full Code VTE Prophylaxis Will order VTE Prophylaxis: Yes (Heparin gtt)
[2017-10-16] MEDS ORDERED: NITROGLYCERIN 2% OINTMENT 30GM TUBE EXT SCH (16:00)
[2017-10-16 19:15] VITALS: BP 142/88; PULSE 75; TEMP 36.8; O2SAT 96
[2017-10-16] MEDS: RANITIDINE HCL 150 MG TAB PO SCH (19:55)
[2017-10-16] MEDS: ARIPIprazole TAB 15 MG TAB PO SCH (19:56)
[2017-10-16] MEDS: CARBIDOPA/LEVODOPA 25/100MG TAB PO SCH (19:56)
[2017-10-16] MEDS: PRAZOSIN HCL 1 MG CAP PO SCH (19:56)
[2017-10-16 20:00] VITALS: O2SAT 95
[2017-10-16] MEDS ORDERED: NURSING VERBAL MED ORDER ONE (20:15)
[2017-10-16 20:37] LABS: PTT PATIENT 33.6 SECONDS (21.0-31.0)
[2017-10-16 20:47] LABS: POTASSIUM 3.7 mmol/L (3.5-5.1)
[2017-10-16] MEDS: PANTOprazole SOD 40 MG TAB PO SCH (20:58)
[2017-10-16] MEDS ORDERED: SIMVASTATIN 40 MG TAB PO SCH (21:00)
[2017-10-16] MEDS ORDERED: HEPARIN IV BOLUS 5,000 UNIT in SYRINGE 0 ML IV ONE (21:15)
[2017-10-16 23:07] VITALS: BP 116/77; PULSE 115; TEMP 36.9; O2SAT 97
[2017-10-16] MEDS ORDERED: LACTATED RINGER'S 1000ML 1,000 ML IV ONE (23:15)
[2017-10-16] MEDS ORDERED: LORAZEPAM 2 MG/ML 1 ML VIAL IV PRN (23:15)
[2017-10-16] MEDS ORDERED: LORAZEPAM INJ 0.5 MG in SYRINGE 0.75 ML IV PRN (23:30)
[2017-10-17] VITALS (7 sets, daily range): BP systolic 100–134; BP diastolic 68–96; PULSE 77–120; TEMP 36.4–37.1; O2SAT 95–98
[2017-10-17 03:26] LABS: HEMATOCRIT 40.9 % (37-47); HEMOGLOBIN 13.9 g/dL (12.0-16.0); MEAN CELL VOLUME 97.4 fL (80-100); MEAN CORPUSCULAR HEMOGLOBIN 33.1 pg (25-34); MEAN PLATELET VOLUME 11.6 fL (7.4-10.4); PLATELET COUNT 287 K/uL (130-400); RED CELL DISTRIBUTION WIDTH CV 13.2 % (11.5-14.5); RED CELL DISTRIBUTION WIDTH SD 46.6 fL (36.4-46.3); WHITE BLOOD COUNT 7.26 K/uL (4.8-10.8)
[2017-10-17 03:51] LABS: CALCIUM 8.6 mg/dl (8.5-10.1); CREATININE 0.78 mg/dl (0.60-1.20); POTASSIUM 4.3 mmol/L (3.5-5.1)
[2017-10-17 04:01] LABS: PTT PATIENT 66.2 SECONDS (21.0-31.0)
[2017-10-17] MEDS: RANITIDINE HCL 150 MG TAB PO SCH ×2 (07:26→21:12)
[2017-10-17] MEDS: CARBIDOPA/LEVODOPA 25/100MG TAB PO SCH ×3 (07:27→21:13)
[2017-10-17] MEDS: ATORVASTATIN 40 MG TAB PO SCH (07:28)
[2017-10-17] MEDS: ASPIRIN 81 MG ECTAB PO SCH (07:28)
[2017-10-17] MEDS: AMLODIPINE BESYLATE 5 MG TAB PO SCH (07:28)
[2017-10-17] MEDS ORDERED: PANTOprazole SOD 40 MG TAB PO SCH (09:00)
--- NOTE | 2017-10-17 09:43 | ECHOCARDIOGRAM REPORT ---
*NOTICE TO RECEIVING DEMOCRAT AGENCY This information is strictly Confidential and protected under [place] law. [place] law prohibits you from making any further disclosure of this information unless further disclosure is expressly permitted by the written consent of the person to whom it pertains or is authorized by law. A general authorization for the release of medical or other information is not sufficient for this purpose. Hospital accepts no responsibility if the information is made available to any other person, INCLUDING THE PATIENT. Interpretation Summary * Name: VIVI PETTIT Study Date: 10/16/2017 03:44 PM BP: 149/115 mmHg * Patient Location: [facility] HR: 78 * : 1970 (M/d/yyyy) Gender: Female Height: 66 in * Age: 47 yrs Ethnicity: CA Weight: 165 lb * Ordering Physician: Sandra Yu * Referring Physician: Self, Referred * Performed By: Martha Witt RDCS * * Reason For Study: Chest pain * BSA: 1.8 m2 * -- Conclusions -- * Normal LV chamber size and wall thickness. * Normal LV systolic function, EF 55-60%. * No segmental left ventricular wall motion abnormalities are noted. * Normal diastolic function. * No significant valvular pathology. Procedure Details * A complete two-dimensional transthoracic echocardiogram was performed (2D, M-mode, Doppler and color flow Doppler). Left Ventricle * The left ventricle is normal in size. * There is normal left ventricular wall thickness. * Ejection Fraction = 55-60%. * Left ventricular systolic function is normal. * No segmental left ventricular wall motion abnormalities are noted. * The left ventricular wall motion is normal. Right Ventricle * The right ventricular cavity size is normal (basal dimension <4.2 cm in right ventricular apical 4-chamber view). * The right ventricular systolic function is normal as assessed by tricuspid annular plane systolic excursion (TAPSE) (normal >1.5 cm). Atria * The left atrial size is normal. * Right atrial size is normal. * No ASD detected; PFO is not assessed. Mitral Valve * The mitral valve is normal in structure and function. Tricuspid Valve * The tricuspid valve is normal in structure and function. Aortic Valve * The aortic valve is normal in structure and function. Pulmonic Valve * The pulmonary valve is not well seen, but the Doppler examination is normal without significant regurgitation or stenosis. Great Vessels * The aortic root and proximal ascending aorta are normal sized. Pericardium/Pleural * There is no pericardial effusion. Left Ventricular Diastolic Function * Pulse wave TDI of the anterior and posterior mitral annulas demonstrates normal LV relaxation MMode 2D Measurements and Calculations IVSd 0.68 cm LVIDd 4.3 cm LVIDs 2.9 cm LVPWd 0.89 cm IVS/LVPW 0.76 FS 32.8 % EDV(Teich) 85.2 ml ESV(Teich) 32.7 ml EF(Teich) 61.6 % EDV(cubed) 82.1 ml ESV(cubed) 24.9 ml EF(cubed) 69.7 % LV mass(C)d 104.0 grams LV mass(C)dI 56.4 grams/m\S\2 SV(Teich) 52.4 ml SI(Teich) 28.5 ml/m\S\2 SV(cubed) 57.2 ml SI(cubed) 31.0 ml/m\S\2 Ao root diam 3.2 cm Ao root area 8.2 cm\S\2 ACS 1.4 cm LA dimension 3.5 cm asc Aorta Diam 2.5 cm LA/Ao 1.1 LVOT diam 2.0 cm LVOT area 3.3 cm\S\2 LVAd ap4 21.6 cm\S\2 LVLd ap4 7.2 cm EDV(MOD-sp4) 54.2 ml EDV(sp4-el) 54.5 ml LVAs ap4 13.3 cm\S\2 LVLs ap4 6.3 cm ESV(MOD-sp4) 24.3 ml ESV(sp4-el) 23.8 ml EF(MOD-sp4) 55.1 % EF(sp4-el) 56.3 % LVAd ap2 25.5 cm\S\2 LVLd ap2 7.9 cm EDV(MOD-sp2) 74.2 ml EDV(sp2-el) 70.2 ml LVAs ap2 15.5 cm\S\2 LVLs ap2 6.4 cm ESV(MOD-sp2) 31.7 ml ESV(sp2-el) 32.0 ml EF(MOD-sp2) 57.3 % EF(sp2-el) 54.5 % LVLd %diff 7.8 % EDV(MOD-bp) 65.8 ml LVLs %diff 1.8 % ESV(MOD-bp) 27.9 ml EF(MOD-bp) 57.6 % SV(MOD-sp4) 29.9 ml SI(MOD-sp4) 16.2 ml/m\S\2 SV(MOD-sp2) 42.5 ml SI(MOD-sp2) 23.1 ml/m\S\2 SV(MOD-bp) 37.9 ml SI(MOD-bp) 20.6 ml/m\S\2 SV(sp4-el) 30.7 ml SI(sp4-el) 16.7 ml/m\S\2 SV(sp2-el) 38.2 ml SI(sp2-el) 20.7 ml/m\S\2 Doppler Measurements and Calculations MV E max dominique 107.7 cm/sec MV A max dominique 60.1 cm/sec MV E/A 1.8 MV dec time 0.24 sec Ao V2 max 173.4 cm/sec Ao max PG 12.0 mmHg Ao max PG (full) 7.8 mmHg DAYRON(V,A) 2.0 cm\S\2 DAYRON(V,D) 2.0 cm\S\2 LV V1 max PG 4.3 mmHg LV V1 max 103.3 cm/sec PA V2 max 112.7 cm/sec PA max PG 5.1 mmHg PA acc slope 439.1 cm/sec\S\2 PA acc time 0.17 sec TR max dominique 140.3 cm/sec PA pr(Accel) 2.9 mmHg
[2017-10-17] MEDS ORDERED: OPTIRAY 320 IV PRN (10:45)
--- NOTE | 2017-10-17 11:45 | DIAGNOSTIC IMAGING REPORT ---
(CHEST FOR PE) ANGIO WITH CLINICAL HISTORY: 47 years-old Female presenting with ^tachycardia /SOB rule out PE. TECHNIQUE: Multidetector CT angiography of the chest was performed after administration of intravenous contrast. 3-D volumetric and/or maximum intensity projection (MIP) images were subsequently reconstructed for review. IV contrast: 140 mL of Optiray 320. A dose lowering technique was used consistent with the principles of ALARA (as low as reasonably achievable). COMPARISON: Chest x-ray from yesterday. CT DOSE (mGy.cm): The estimated cumulative dose is 680.76 mGycm. FINDINGS: Electrical Integrator topogram: Unremarkable. Pulmonary vasculature: The study is adequate for assessment of the pulmonary vascular tree. No filling defect within the pulmonary arteries to suggest embolus. Main pulmonary artery is not enlarged. No flattening of the interventricular septum. No intracardiac filling defect. No reflux of contrast into the hepatic veins. Remaining chest: On soft tissue windows, normal thyroid and thoracic inlet. Small bilateral hilar lymph nodes suggested. Few enlarged subcarinal lymph nodes may also be present. These are ill-defined. Normal aorta. Normal heart size. No pericardial or pleural effusion. Upper abdomen normal. On lung windows, diffuse added density of the lungs with a basilar predominance. No focal consolidation. Mosaic attenuation may suggest small airways disease. Central airways patent. No pneumothorax. On bone windows, normal osseous structures. IMPRESSION: 1. No evidence of pulmonary embolus. 2. Diffuse added density of the lungs. It is difficult to exclude an atypical infectious etiology. Combined with the presence of mosaic attenuation, this could suggest reactive airways disease or viral bronchiolitis. No focal consolidation to suggest lobar pneumonia. 3. Small reactive hilar and mediastinal lymph nodes. Electronically signed by: Georges Bloom M.D. 10/17/2017 11:44 AM Dictated Date/Time: 10/17/2017 11:39 AM
--- NOTE | 2017-10-17 12:03 | DIAGNOSTIC IMAGING REPORT ---
VENOUS DOPPLER LWR EXT BILA CLINICAL HISTORY: 47 years-old Female presenting with tachycardia, shortness of breath, clinical concern for deep venous thrombosis.. TECHNIQUE: Real-time grayscale and color and spectral Doppler ultrasound imaging of the veins of the bilateral lower extremities was performed. Compression and augmentation were also utilized. COMPARISON: None. FINDINGS: RIGHT: Common femoral vein: Patent. Greater saphenous vein: Patent. Deep femoral vein: Patent. Femoral vein: Patent. Popliteal vein: Patent. Calf veins: Patent. LEFT: Common femoral vein: Patent. Greater saphenous vein: Patent. Deep femoral vein: Patent. Femoral vein: Patent. Popliteal vein: Patent. Calf veins: Patent. Other: None. IMPRESSION: No evidence of deep venous thrombosis. Electronically signed by: Georges Bloom M.D. 10/17/2017 12:01 PM Dictated Date/Time: 10/17/2017 11:59 AM
--- NOTE | 2017-10-17 12:40 | Cardiology Follow-Up ---
Subjective Subjective Date of Service: Oct 17, 2017. Pt evaluation today including: conversation w/ patient, physical exam, chart review, lab review, review of studies, review of inpatient medication list Additional Details: Pt seen and examined, states that she's feeling ok. No further chest discomfort. Denies sob, lightheadedness or dizziness. Does get palpitations with activity or anxiety. Tele reviewed: sinus rhythm without arrhythmia but sinus tach into 150's with activity. Problem List Medical Problems: (1) Contusion Status: Acute (2) Contusion of multiple sites Status: Acute (3) Left-sided chest wall pain Status: Acute (4) NSTEMI (non-ST elevated myocardial infarction) Status: Acute Review of Systems Respiratory: No see HPI, No cough, No sputum, No wheezing, No shortness of breath, No dyspnea on exertion, No dyspnea at rest, No hemoptysis, No problem reported Cardiac: + chest pain, + palpitations, No see HPI, No orthopnea, No PND, No edema, No claudication, No problem reported Objective Vital Signs Last Vital Signs Documentation Date Time Temp Pulse Resp B/P (MAP) Pulse Ox O2 Delivery O2 Flow Rate FiO2 10/17/17 12:04 36.7 109 16 124/96 (105) 95 Room Air Physical Exam: General Appearance: WD/WN, no apparent distress Eyes: bilateral eyes normal inspection, bilateral eyes PERRL, bilateral eyes EOMI ENT: normal ENT inspection, hearing grossly normal, pharynx normal Neck: supple, no adenopathy, thyroid normal, no JVD, no carotid bruits, trachea midline Respiratory/Chest: chest non-tender, lungs clear, normal breath sounds, no respiratory distress, no accessory muscle use Cardiovascular: regular rate, rhythm, no edema, no JVD, no murmur, + gallop/S4 Abdomen: normal bowel sounds, non tender, soft, no organomegaly, no pulsatile mass Extremities: non-tender, normal inspection, no pedal edema, no calf tenderness 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 chest discomfort trop peaked at 1 overnight, now downtrending no further discomfort still a concern for ischemia so will cont heparin also, given tachycardia will need to r/o PE will plan for routine cardiac cath Thursday 10/19 can resume diet, npo Thursday night cont aspirin 2. hypertension new possible episode of hypertensive urgency but again need to rule out ischemia now well controlled with low dose amlodipine will cont 3. dyslipidemia LDL of 207 simvastatin changed to atorvastatin 4. tobacco abuse need for absolute cessation reviewed with patient cont to monitor on tele
[2017-10-17] MEDS ORDERED: LORAZEPAM 0.5 MG TAB ONE (13:29)
[2017-10-17] MEDS ORDERED: LORAZEPAM 0.5 MG TAB PO ONE (13:30)
[2017-10-17] MEDS ORDERED: NURSING VERBAL MED ORDER ONE (13:30)
[2017-10-17] MEDS: HEPARIN 25,000 UNIT/500ML D5W 500 ML IV SCH (13:51)
[2017-10-17] MEDS: PANTOprazole SOD 40 MG TAB PO SCH (15:52)
--- NOTE | 2017-10-17 18:06 | Progress Note ---
Internal Med Progress Note Date of Service: Oct 17, 2017. Provider Documentation: SUBJECTIVE: no complain of chest pain no SOB , no dizzy spell or lightheadedness OBJECTIVE: Vital Signs-as noted below Exam: General-no sign of distress Eyes-sclera non icteric ENT-moist oral mucosa Neck-no JVD , no Carotid bruit , trachea midline Lungs-CTA Heart-irregular Abdomen-soft, non tender Extremities-no lower ext edema, no rash or deformity Neuro-no focal neurological deficit Lab data as noted below. ASSESSMENT & PLAN: CHEST PAIN /NSTEMI : Presented with angina symptom with elevated troponin ECHO shows no wall motion abnormality appreciate input form cardiology plan for cardiac cath in am CT CHEST WITH OUT CONTRAST ; 1. No evidence of pulmonary embolus. 2. Diffuse added density of the lungs. It is difficult to exclude an atypical infectious etiology. Combined with the presence of mosaic attenuation, this could suggest reactive airways disease or viral bronchiolitis. No focal consolidation to suggest lobar pneumonia. 3. Small reactive hilar and mediastinal lymph nodes. -ordered empirically for PO Doxycycline HYPERTENSIVE URGENCY Presented with elevated blood pressure, causing a cardiac strain elevated troponin Pressure improved after addition of low-dose amlodipine HYPERLIPIDEMIA: LDL more than 200 Simvastatin changed to atorvastatin Goal LDL less than 70 TOBACCO ABUSE DISORDER: Counseled for absolute cessation of smoking to reduce risk factor for coronary artery disease, stroke FULL CODE DVT PROPHYLAXIS IV heparin DISPOSITION expected to be discharged home when medically stable Vital Signs: Date Time Temp Pulse Resp B/P (MAP) Pulse Ox O2 Delivery O2 Flow Rate FiO2 10/18/17 15:33 37.0 83 20 110/73 (85) 98 Room Air 10/18/17 11:20 36.7 71 20 111/78 (89) 97 Room Air 10/18/17 08:09 36.6 16 110/72 (85) 95 Room Air 10/18/17 08:00 Room Air 10/18/17 04:17 36.5 86 18 121/82 (95) 96 Room Air 10/17/17 23:51 37.0 120 18 105/69 (81) 97 Room Air 10/17/17 20:00 Room Air 10/17/17 19:45 37.1 77 18 125/81 (96) 97 Room Air Lab Results: Results Past 24 Hours Test 10/18/17 09:33 10/18/17 16:35 Range/Units Activated Partial Thromboplast Time 43.2 74.5 21.0-31.0 SECONDS Partial Thromboplastin Ratio 1.7 2.9 Sodium Level 143 136-145 mmol/L Potassium Level 3.8 3.5-5.1 mmol/L Chloride Level 111 98-107 mmol/L Carbon Dioxide Level 24 21-32 mmol/L Anion Gap 7.0 3-11 mmol/L Blood Urea Nitrogen 6 7-18 mg/dl Creatinine 0.68 0.60-1.20 mg/dl Est Creatinine Clear Calc Drug Dose 108.4 ml/min Estimated GFR () 122.4 Estimated GFR (Non- 105.6 BUN/Creatinine Ratio 9.2 10-20 Random Glucose 91 70-99 mg/dl Calcium Level 8.8 8.5-10.1 mg/dl
[2017-10-17] MEDS ORDERED: SODIUM CHLORIDE 0.9% 1000ML 1,000 ML IV SCH (19:45)
[2017-10-17] MEDS: DOXYCYCLINE HYCLATE 100 MG CAP PO SCH (21:12)
[2017-10-17] MEDS: PRAZOSIN HCL 1 MG CAP PO SCH (21:13)
[2017-10-17] MEDS: ARIPIprazole TAB 15 MG TAB PO SCH (21:13)
[2017-10-18 04:17] VITALS: BP 121/82; PULSE 86; TEMP 36.5; O2SAT 96
[2017-10-18] MEDS: CARBIDOPA/LEVODOPA 25/100MG TAB PO SCH ×3 (07:50→21:19)
[2017-10-18] MEDS: ATORVASTATIN 40 MG TAB PO SCH (07:51)
[2017-10-18] MEDS: DOXYCYCLINE HYCLATE 100 MG CAP PO SCH ×2 (07:52→21:19)
[2017-10-18] MEDS: AMLODIPINE BESYLATE 5 MG TAB PO SCH (07:52)
[2017-10-18] MEDS: ASPIRIN 81 MG ECTAB PO SCH (07:52)
[2017-10-18] MEDS: RANITIDINE HCL 150 MG TAB PO SCH ×2 (07:52→21:19)
[2017-10-18 08:09] VITALS: BP 110/72; TEMP 36.6; O2SAT 95
[2017-10-18 09:59] LABS: PTT PATIENT 43.2 SECONDS (21.0-31.0)
[2017-10-18 10:20] LABS: CALCIUM 8.8 mg/dl (8.5-10.1); CREATININE 0.68 mg/dl (0.60-1.20); POTASSIUM 3.8 mmol/L (3.5-5.1)
[2017-10-18] MEDS: HEPARIN 25,000 UNIT/500ML D5W 500 ML IV SCH ×2 (10:47→17:18)
[2017-10-18] MEDS ORDERED: HEPARIN IV BOLUS 3,000 UNIT in SYRINGE 0 ML IV ONE (11:00)
[2017-10-18] MEDS: LORAZEPAM 0.5 MG TAB PO PRN (11:08)
[2017-10-18 11:20] VITALS: BP 111/78; PULSE 71; TEMP 36.7; O2SAT 97
--- NOTE | 2017-10-18 12:43 | Cardiology Follow-Up ---
Subjective Subjective Date of Service: Oct 18, 2017. Pt evaluation today including: conversation w/ patient, conversation w/ family , physical exam, chart review, lab review, review of studies, review of inpatient medication list Additional Details: Pt seen and examined with at bedside, states that she continues to feel well. Anxiety improving. Denies cp, sob, palpitations, lightheadedness or dizziness. Tele reviewed: sinus rhythm with short runs of sinus tach, no arrhythmias. Problem List Medical Problems: (1) Contusion Status: Acute (2) Contusion of multiple sites Status: Acute (3) Left-sided chest wall pain Status: Acute (4) NSTEMI (non-ST elevated myocardial infarction) Status: Acute Review of Systems Respiratory: No see HPI, No cough, No sputum, No wheezing, No shortness of breath, No dyspnea on exertion, No dyspnea at rest, No hemoptysis, No problem reported Cardiac: + chest pain, + palpitations, No see HPI, No orthopnea, No PND, No edema, No claudication, No problem reported Objective Vital Signs Last Vital Signs Documentation Date Time Temp Pulse Resp B/P (MAP) Pulse Ox O2 Delivery O2 Flow Rate FiO2 10/18/17 11:20 36.7 71 20 111/78 (89) 97 Room Air Physical Exam: General Appearance: WD/WN, no apparent distress Eyes: bilateral eyes normal inspection, bilateral eyes PERRL, bilateral eyes EOMI ENT: normal ENT inspection, hearing grossly normal, pharynx normal Neck: supple, no adenopathy, thyroid normal, no JVD, no carotid bruits, trachea midline Respiratory/Chest: chest non-tender, lungs clear, normal breath sounds, no respiratory distress, no accessory muscle use Cardiovascular: regular rate, rhythm, no edema, no JVD, no murmur, + gallop/S4 Abdomen: normal bowel sounds, non tender, soft, no organomegaly, no pulsatile mass Extremities: non-tender, normal inspection, no pedal edema, no calf tenderness 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 chest discomfort trop peaked at 1, now downtrending no further discomfort still a concern for ischemia PE ruled out will plan for routine cardiac cath Thursday 10/19 npo after midnight will stop heparin at midnight as well cont aspirin 2. hypertension new possible episode of hypertensive urgency but again need to rule out ischemia now well controlled with low dose amlodipine will cont 3. dyslipidemia LDL of 207 simvastatin changed to atorvastatin 4. tobacco abuse need for absolute cessation reviewed with patient cont to monitor on tele
[2017-10-18 15:33] VITALS: BP 110/73; PULSE 83; TEMP 37; O2SAT 98
[2017-10-18] MEDS: PANTOprazole SOD 40 MG TAB PO SCH (16:15)
[2017-10-18 17:06] LABS: PTT PATIENT 74.5 SECONDS (21.0-31.0)
--- NOTE | 2017-10-18 19:19 | Progress Note ---
Internal Med Progress Note Date of Service: Oct 18, 2017. Provider Documentation: SUBJECTIVE: Feels fine like her normal self No complaint of chest heaviness, chest tightness No shortness of breath or dyspnea on exertion Denies of feeling of palpitation or dizzy spell Scheduled for cardiac cath tomorrow OBJECTIVE: Vital Signs-as noted below Exam: General-no sign of distress Eyes-sclera non icteric ENT-moist oral mucosa Neck-no JVD , no Carotid bruit , trachea midline Lungs-CTA Heart-irregular Abdomen-soft, non tender Extremities-no lower ext edema, no rash or deformity Neuro-no focal neurological deficit Lab data as noted below. ASSESSMENT & PLAN: CHEST PAIN /NSTEMI : Presented with angina symptom /resolved since admission Troponin elevated, peaked to 1.[address] chest with contrast ECHO shows no wall motion abnormality appreciate input form cardiology Patient is treated with IV heparin, aspirin, statin plan for cardiac cath in am 10/20/2007 Ordered for n.p.o. past midnight IV heparin can be on hold past midnight ABNORMAL CT CHEST CT CHEST WITH OUT CONTRAST ; 1. No evidence of pulmonary embolus. 2. Diffuse added density of the lungs. It is difficult to exclude an atypical infectious etiology. Combined with the presence of mosaic attenuation, this could suggest reactive airways disease or viral bronchiolitis. No focal consolidation to suggest lobar pneumonia. 3. Small reactive hilar and mediastinal lymph nodes. -ordered empirically for PO Doxycycline HYPERTENSIVE URGENCY Presented with elevated blood pressure, causing a cardiac strain elevated troponin Pressure improved after addition of low-dose amlodipine HYPERLIPIDEMIA: LDL more than 200 Simvastatin changed to atorvastatin Goal LDL less than 70 TOBACCO ABUSE DISORDER: Counseled for absolute cessation of smoking to reduce risk factor for coronary artery disease, stroke FULL CODE DVT PROPHYLAXIS IV heparin DISPOSITION expected to be discharged home when medically stable Vital Signs: Date Time Temp Pulse Resp B/P (MAP) Pulse Ox O2 Delivery O2 Flow Rate FiO2 10/18/17 15:33 37.0 83 20 110/73 (85) 98 Room Air 10/18/17 11:20 36.7 71 20 111/78 (89) 97 Room Air 10/18/17 08:09 36.6 16 110/72 (85) 95 Room Air 10/18/17 08:00 Room Air 10/18/17 04:17 36.5 86 18 121/82 (95) 96 Room Air 10/17/17 23:51 37.0 120 18 105/69 (81) 97 Room Air 10/17/17 20:00 Room Air 10/17/17 19:45 37.1 77 18 125/81 (96) 97 Room Air Lab Results: Results Past 24 Hours Test 10/18/17 09:33 10/18/17 16:35 Range/Units Activated Partial Thromboplast Time 43.2 74.5 21.0-31.0 SECONDS Partial Thromboplastin Ratio 1.7 2.9 Sodium Level 143 136-145 mmol/L Potassium Level 3.8 3.5-5.1 mmol/L Chloride Level 111 98-107 mmol/L Carbon Dioxide Level 24 21-32 mmol/L Anion Gap 7.0 3-11 mmol/L Blood Urea Nitrogen 6 7-18 mg/dl Creatinine 0.68 0.60-1.20 mg/dl Est Creatinine Clear Calc Drug Dose 108.4 ml/min Estimated GFR () 122.4 Estimated GFR (Non- 105.6 BUN/Creatinine Ratio 9.2 10-20 Random Glucose 91 70-99 mg/dl Calcium Level 8.8 8.5-10.1 mg/dl
[2017-10-18 19:43] VITALS: BP 101/66; PULSE 70; TEMP 36.8; O2SAT 98
[2017-10-18] MEDS: PRAZOSIN HCL 1 MG CAP PO SCH (21:19)
[2017-10-18] MEDS: ARIPIprazole TAB 15 MG TAB PO SCH (21:19)
[2017-10-18 23:43] LABS: PTT PATIENT 55.6 SECONDS (21.0-31.0)
[2017-10-18] MEDS ORDERED: *HEPARIN DRIP*STOP ORDER ONE (23:59)
[2017-10-19] VITALS (14 sets, daily range): BP systolic 107–141; BP diastolic 70–84; PULSE 67–100; TEMP 36.4–37; O2SAT 93–98
[2017-10-19] MEDS: LORAZEPAM 0.5 MG TAB PO PRN ×2 (00:07→17:39)
[2017-10-19] MEDS ORDERED: HEPARIN SOD (PORCINE) 1000 UNIT/ML 10 ML VIAL ONE (08:24)
[2017-10-19] MEDS ORDERED: MIDAZOLAM HCL 1 MG/ML 2ML VIAL ONE ×2 (08:24→09:11)
[2017-10-19] MEDS ORDERED: FENTANYL CITRATE INJ 50 MCG/1 ML 2 ML VIAL ONE (08:24)
[2017-10-19] MEDS ORDERED: NiCARDipine HCL INJ 2.5 MG/ML 10 ML AMP ONE (08:24)
[2017-10-19] MEDS ORDERED: NITROGLYCERIN/D5W 100MCG/ML 20ML SYR ONE (08:25)
[2017-10-19] MEDS: ATORVASTATIN 40 MG TAB PO SCH (08:27)
[2017-10-19] MEDS: AMLODIPINE BESYLATE 5 MG TAB PO SCH (08:27)
[2017-10-19] MEDS: RANITIDINE HCL 150 MG TAB PO SCH ×2 (08:27→20:47)
[2017-10-19] MEDS: ASPIRIN 81 MG ECTAB PO SCH (08:27)
[2017-10-19] MEDS: CARBIDOPA/LEVODOPA 25/100MG TAB PO SCH ×3 (08:27→20:46)
[2017-10-19] MEDS: DOXYCYCLINE HYCLATE 100 MG CAP PO SCH ×2 (08:27→20:46)
[2017-10-19] MEDS ORDERED: DC ALL ANTICOAGULANTS ONE (08:45)
--- NOTE | 2017-10-19 09:49 | Cardiac Catheterization ---
Procedure Note Procedure Date Oct 19, 2017. Pre-Procedure Diagnosis Non STEMI AUC Score 9 Post-Procedure Diagnosis Severe CAD Procedure(s) Performed Coronary Angiography, Left Heart Cath, LV Angiography Wire Chief Dr. Marr Pigment Grinder(s) None Estimated Blood Loss None Medication(s) Versed, Lidocaine 1% Summary of Findings See dictated report Hemodynamics Rest Ao: 117/68 Final Ao: 123/65 LV: 116/12 Recommendations PCI without planned CABG Specimens None Radiation Exposure (mGy) 1066 Contrast (mls) 112 Procedural Complication(s) None Disposition PCU ACC Data Cardiac Status Clinical evaluation leading to the procedure CAD Presntation: Non STEMI Anginal Classification: CCS III Heart Failure: No Cardiogenic Shock w/in 24Hrs: No Cardiac Arrest w/in 24Hrs: No Imaging studies past 6 months: Yes Stress studies past 6 months: No Coronary Anatomy Dominant: Right Left Main (% Stenosis): Normal LAD (% Stenosis): Mid (30%) D1 (% Stenosis): Proximal (95%) Circumflex (% Stenosis): Normal OM1 (% Stenosis): Normal OM2 (% Stenosis): Ostial (80%) RCA (% Stenosis): Normal Left Ventricular Angiography EF (%): 60% Diagnostic Status: Urgent Closure Device Percutaneous Entry Location: Femoral
--- NOTE | 2017-10-19 09:55 | Procedure Note ---
Cardiac Cath Report Procedure: 1. Coronary angiography 2. Left ventriculography 3. Left heart catheterization History: This is a 47-year-old female with a strong family history of coronary artery disease and history of hypercholesterolemia who presented with chest pain with an elevation in her cardiac markers. Procedure summary: After informed consent was obtained, the patient was taken to the cardiac catheterization lab where she was prepped and draped in the usual manner for right transfemoral approach. Preformed 5 Trinidadian diagnostic catheters were utilized for the coronary angiograms. A 5 Trinidadian pigtail catheter was utilized for the left ventriculogram and left heart pressures. Following the procedure the patient underwent coronary intervention. Coronary angiography: Selective injections left coronary artery reveal the left main trunk to be patent. The left circumflex artery consists of a large lateral marginal branch and a second posterior lateral marginal branch. The second marginal branch has an ostial stenosis which is estimated to be 80%. The LAD gives off a single large first diagonal branch. In the midportion of the LAD there is a 30% eccentric narrowing. The diagonal branch in its proximal segment has a 90% narrowing. Selective injections of the right coronary artery revealed to be dominant. The right coronary artery is widely patent. Left ventriculogram: The left ventricle is of normal size with normal systolic function. The LVEDP is 12. The mitral valve is competent. The aortic root and ascending aorta have normal morphology and diameter. Summary: The patient has severe disease of the first diagonal branch from the LAD. There is also an ostial stenosis of the second marginal branch from the left circumflex artery. The remainder the coronary anatomy is widely patent. LV function is normal. Recommendations: Consideration will be given for coronary intervention and stent placement in the first diagonal branch.
[2017-10-19] MEDS ORDERED: TICAGRELOR 90 MG TAB PO ONE (10:52)
[2017-10-19] MEDS ORDERED: SODIUM CHLORIDE 0.9% 1000ML 1,000 ML IV SCH (11:00)
--- NOTE | 2017-10-19 11:04 | Post Sedation Assessment ---
Post Sedation Assessment General Date of Sedation Oct 19, 2017. Vital Signs: Vital Signs Past 12 Hours Date Time Temp Pulse Resp B/P (MAP) Pulse Ox O2 Delivery O2 Flow Rate FiO2 10/19/17 11:00 65 18 109/65 (80) 95 Room Air 10/19/17 10:56 67 18 116/70 (85) 96 Room Air 10/19/17 08:00 Room Air 10/19/17 07:54 37.0 87 20 141/78 (99) 93 Room Air 10/19/17 04:27 36.9 91 18 109/70 (83) 96 Room Air 10/19/17 00:17 36.9 96 18 109/75 (86) 95 Room Air Post Procedure Recovery Score Activity: (2) Moves 4 extremities * Respiration: (2) Deep breath/cough Circulation: (2) +/-20% PreAnes Value Consciousness: (2) Fully Awake Oxygen Saturation: (2) > 92% On Room Air Post Anesthesia Score: 10 Discharge Sedation Level of Care: Fast Track Phase II Post Sedation Plan On clinical assessment, the patient appears to have tolerated the sedation without complications. Patient is recovering as anticipated. Patient will continue to be monitored by nursing and may be discharged when sedation discharge criteria are met per below protocol. Upon Completions of procedure and additional 15 minutes continue every 5 minute vital signs and the P.A.R. score; then discharge to a Phase I or Fast Track to Phase II per the following guidelines: * Discharge Patient to appropriate Phase II area if PAR is 8 or greater or return to pre- procedure baseline. The post - procedure orders will be as directed. * If PAR score is less than 8 or not return to pre-procedure baseline then patient will follow Phase I monitoring till PAR is reached for Phase II. The Phase I may be done in procedure room or may call to secure a Phase I area. * If naloxone or flumazenil are used for reversal, hold in Phase I for an additional 60 -120 minutes before discharge to Phase II. Please call the Sedation Physician to re-evaluate and complete post-note for discharge to Phase II area. Do NOT discharge from procedure sedation or Phase 1 until post- sedation evaluation note is complete by procedure /sedation MD Sedation Discharge Instructions to be given to the patient at discharge to home.
--- NOTE | 2017-10-19 11:06 | [facility] Post Operative Brief Note ---
Preliminary Procedure Note Procedure Date Oct 19, 2017. Pre-Procedure Diagnosis Non STEMI AUC Score 9 Post-Procedure Diagnosis Severe CAD Procedure(s) Performed Drug Eluting Stent, IVUS, Femoral Artery Angiography Upholstery Technician freedom Sheetmetal Worker(s) sandra Estimated Blood Loss 10 Medication(s) Fentanyl, Heparin, Nicardipine, Nitroglycerin, Versed, Lidocaine 1% Preliminary Findings Severe LAD, ostial diagonal disease. Successful PCI of LAD and diagonal bifurcation with 2 drug-eluting stents (3.0 x 28, 2.5 x 18 Xience). Recommendations PCI without planned CABG Specimens None Procedural Complication(s) None Disposition PCU
--- NOTE | 2017-10-19 13:17 | Cardiac Catheterization ---
Procedure Note Procedure Date Oct 19, 2017. Pre-Procedure Diagnosis Non STEMI AUC Score 8 Post-Procedure Diagnosis Severe CAD, Successful PCI Procedure(s) Performed Drug Eluting Stent, IVUS Fuse Maker freedom Lapel Padder Blindstitch(s) sandra Estimated Blood Loss 15 Medication(s) Fentanyl, Heparin, Nicardipine, Nitroglycerin, Versed, Lidocaine 1% Ticagrelor Summary of Findings Indication: High-risk NSTEMI Access: 6Fr right SKIRT MAKER Catheters: EBU 3.5 guide Findings: For full details of patient's coronary angiography please cath report dictated by Dr. Marr. Briefly, patient found to have multi-vessel disease including a 95+% stenosis involving proximal 1st diagonal (likely culprit) and moderate stenosis angiographically in mid LAD at bifurcation. Decision to proceed with PCI. -- PCI -- Antithrombotic therapy: Heparin, Ticagrelor Procedure: LM cannulated with EBU 3.5 guide BMW wire passed across lesion into distal diagonal Prowater wire placed into distal LAD Diagonal lesion predilated with 2.0 compliant balloon IVUS used to assess mid LAD -- noted to have severe, moderately calcified diffuse disease (>70% with MLA of 3.7mm2) --> decision to proceed with stenting of LAD Dilated diagonal lesion stented with 2.5 x 18 Xience SARAH extended to ostium of vessel LAD dilated with 2.0 compliant balloon. Proximal to mid LAD stented with 3.0 x 28 Xience SARAH Stent post-dilated with 3.5 noncompliant balloon Diagonal wired with whisper wire but unable to pass 2.0 balloon across stent struts. IC vasodilators administered for spasm Post procedure DUNIA 3 flow, stents well expanded with minimal residual stenosis at ostium of diagonal. No apparent complications. Arterial Closure: Mynx Summary: 1. Successful PCI of mid LAD/1st diagonal bifurcation with 2 drug-eluting stents (T-stenting - LAD 3.0 x 28 {post-dilated with 3.5 NC}, Diagonal 2.5 x 18) . Recommendations: To PCU for continued monitoring Loaded with Ticagrelor 180mg in cleaner laboratory equipment Continue dual-antiplatelet therapy for at least 1 year Continue statin, and ASCVD risk factor modification Consult cardiac Rehab Hemodynamics Rest Ao: -- Final Ao: 123/71/95 LV: -- Recommendations PCI without planned CABG Specimens None Radiation Exposure (mGy) 3134 Contrast (mls) 227 opti (total) Fluids (cc crystalloids) 212 Drains none Anesthesia moderate Procedural Complication(s) None Disposition PCU ACC Data Cardiac Status Clinical evaluation leading to the procedure CAD Presntation: Non STEMI Anginal Classification: CCS IV Heart Failure: No, NYHA Class: CCS I Cardiogenic Shock w/in 24Hrs: No Cardiac Arrest w/in 24Hrs: No Imaging studies past 6 months: Yes Stress studies past 6 months: No Diagnostic Physician's Name: Hernandez Marr, DO Status: Elective Closure Device Percutaneous Entry Location: Femoral Closure Device: Mynx Recommendations: PCI without planned CABG PCI Indication: PCI for high risk Non-STEMI Lesion Segment Name: 1st diagonal/mid LAD Culprit Artery: Yes Stenosis Prior to Rx (%): 95 Chronic Total Occlusion: No IVUS: Yes FFR: No Pre-Procedure DUNIA Flow: 2 (in diagonal) Previously Treated Lesion: No Lesion Complexity: High/C Lesion Length (mm): 25 Thrombus Present: Yes Bifurcation Lesion: Yes Guidewire Across Lesion: Yes Guidewire: Stenosis Post-Procedure (%): 0 Post-Procedure DUNIA Flow: 3 Device(s) Deployed: Yes Intraprocedure Events Significant Dissection: No Perforation: No
[2017-10-19] MEDS ORDERED: BRL90 PO (14:51)
--- NOTE | 2017-10-19 15:11 | Cardiology Follow-Up ---
Subjective Subjective Date of Service: Oct 19, 2017. Pt evaluation today including: conversation w/ patient, conversation w/ family , physical exam, chart review, lab review, review of studies, review of inpatient medication list Additional Details: Pt seen and examined, s/p PCI, states that she feels well. Denies groin pain, chest pain, sob, palpitations, lightheadedness or dizziness. Tele reviewed: sinus rhythm without arrhythmia or significant ectopy. Problem List Medical Problems: (1) Contusion Status: Acute (2) Contusion of multiple sites Status: Acute (3) Left-sided chest wall pain Status: Acute (4) NSTEMI (non-ST elevated myocardial infarction) Status: Acute Review of Systems Respiratory: No see HPI, No cough, No sputum, No wheezing, No shortness of breath, No dyspnea on exertion, No dyspnea at rest, No hemoptysis, No problem reported Cardiac: + chest pain, + palpitations Objective Vital Signs Last Vital Signs Documentation Date Time Temp Pulse Resp B/P (MAP) Pulse Ox O2 Delivery O2 Flow Rate FiO2 10/19/17 14:00 77 16 116/74 (88) 98 Room Air 10/19/17 13:00 36.6 Physical Exam: General Appearance: WD/WN, no apparent distress Eyes: bilateral eyes normal inspection, bilateral eyes PERRL, bilateral eyes EOMI ENT: normal ENT inspection, hearing grossly normal, pharynx normal Neck: supple, no adenopathy, thyroid normal, no JVD, no carotid bruits, trachea midline Respiratory/Chest: chest non-tender, lungs clear, normal breath sounds, no respiratory distress, no accessory muscle use Cardiovascular: regular rate, rhythm, no edema, no JVD, no murmur, + gallop/S4 Abdomen: normal bowel sounds, non tender, soft, no organomegaly, no pulsatile mass Extremities: non-tender, normal inspection, no pedal edema, no calf tenderness 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 NSTEMI s/p PCI to LAD and D1 residual ostial stenosis of small OM branch tolerated well follow groin per protocol cont itzel and zeb, I have asked primary team to look into insurance coverage, may need to change to plavix cont atorvastatin 2. hypertension new possible episode of hypertensive urgency but again need to rule out ischemia now well controlled with low dose amlodipine 3. dyslipidemia LDL of 207 simvastatin changed to atorvastatin ?familial hypercholesterolemia, will require genetic testing upon d/c 4. tobacco abuse need for absolute cessation reviewed with patient cont to monitor on tele overnight
[2017-10-19] MEDS ORDERED: CLOPIDOGREL BISULFATE 75 MG TAB PO STA (16:16)
[2017-10-19] MEDS: PANTOprazole SOD 40 MG TAB PO SCH (16:43)
--- NOTE | 2017-10-19 19:10 | Progress Note ---
Internal Med Progress Note Date of Service: Oct 19, 2017. Provider Documentation: SUBJECTIVE: Patient underwent cardiac cath today/ Severe coronary artery disease Status post PCI to LAD and D1 Patient's recovering well post cardiac cath, no pain or discomfort at the groin area will need uninterrupted dual antiplatelet therapy for 1 year Patient was initially started with Brilinta Contacted patient's pharmacy, and does not have insurance coverage for Brilinta Patient is started on Plavix 75 mg daily, will need to continue with aspirin 81 mg daily Continue to monitor overnight in telemetry Possible discharge home tomorrow OBJECTIVE: Vital Signs-as noted below Exam: General-no sign of distress Eyes-sclera non icteric ENT-moist oral mucosa Neck-no JVD , no Carotid bruit , trachea midline Lungs-CTA Heart-irregular Abdomen-soft, non tender Extremities-no lower ext edema, no rash or deformity , rt groin cath site intact , no bleeding or swelling Neuro-no focal neurological deficit Lab data as noted below. ASSESSMENT & PLAN: CHEST PAIN/STABLE ANGINA/NSTEMI : Presented with angina symptom with elevated troponin ECHO shows no wall motion abnormality appreciate input form cardiology s/p Cardiac cath today Shows severe coronary artery disease, Shows a 30% mid LAD stenosis, 80% ostial stenosis, 95% stenosis of proximal diagonal Status post successful drug-eluting stent placed on LAD and diagonal bar for bifurcation D1 Patient will need to be on uninterrupted dual antiplatelet for 12 months Does not have insurance coverage for Brilinta Started on Plavix 75 mg p.o. daily plus aspirin 81 mg p.o. daily Patient will be observed on telemetry overnight Plan to discharge home tomorrow Cardiology follow-up in 3-4 weeks Patient is strongly counseled for smoking cessation Referral made for cardiac rehab CT CHEST WITH OUT CONTRAST ; 1. No evidence of pulmonary embolus. 2. Diffuse added density of the lungs. It is difficult to exclude an atypical infectious etiology. Combined with the presence of mosaic attenuation, this could suggest reactive airways disease or viral bronchiolitis. No focal consolidation to suggest lobar pneumonia. 3. Small reactive hilar and mediastinal lymph nodes. -ordered empirically for PO Doxycycline /no cough or shortness of breath -We will DC antibiotic after today's dose HYPERTENSIVE URGENCY Presented with elevated blood pressure, causing a cardiac strain elevated troponin Pressure improved after addition of low-dose amlodipine /Norvasc 2.5 mg daily HYPERLIPIDEMIA: LDL more than 200 Simvastatin changed to atorvastatin Goal LDL less than 70 TOBACCO ABUSE DISORDER: Counseled for absolute cessation of smoking to reduce risk factor for coronary artery disease, stroke FULL CODE DVT PROPHYLAXIS sub q heparin DISPOSITION plan to discharge pt home tomorrow Vital Signs: Date Time Temp Pulse Resp B/P (MAP) Pulse Ox O2 Delivery O2 Flow Rate FiO2 10/20/17 08:00 Room Air 10/20/17 06:39 36.7 101 18 112/76 (88) 96 Room Air 10/20/17 04:08 37.0 105 18 117/73 (88) 98 Room Air 10/19/17 23:33 36.8 100 18 107/72 (84) 95 Room Air 10/19/17 20:00 Room Air 10/19/17 19:06 36.9 82 20 132/84 (100) 98 Room Air 10/19/17 15:34 36.4 77 20 116/82 (93) 96 Room Air 10/19/17 15:00 80 16 123/75 (91) 98 Room Air 10/19/17 14:00 77 16 116/74 (88) 98 Room Air 10/19/17 13:00 36.6 74 16 118/78 (91) 98 Room Air 10/19/17 12:33 74 16 117/79 (92) 98 Room Air 10/19/17 12:00 79 16 135/83 (100) 98 Room Air 10/19/17 11:45 80 16 118/81 (93) 98 Room Air 10/19/17 11:30 67 16 123/83 (96) 96 Room Air Lab Results:
[2017-10-19] MEDS: ARIPIprazole TAB 15 MG TAB PO SCH (20:47)
[2017-10-19] MEDS: PRAZOSIN HCL 1 MG CAP PO SCH (20:47)
[2017-10-19] MEDS ORDERED: TICAGRELOR 90 MG TAB PO SCH (21:00)
[2017-10-20] MEDS ORDERED: SODIUM CHLORIDE 0.9% 1000ML 1,000 ML IV SCH
[2017-10-20] MEDS: LORAZEPAM 0.5 MG TAB PO PRN (02:01)
[2017-10-20 04:08] VITALS: BP 117/73; PULSE 105; TEMP 37; O2SAT 98
[2017-10-20 06:39] VITALS: BP 112/76; PULSE 101; TEMP 36.7; O2SAT 96
[2017-10-20] MEDS: ASPIRIN 81 MG ECTAB PO SCH (07:14)
[2017-10-20] MEDS: RANITIDINE HCL 150 MG TAB PO SCH (07:14)
[2017-10-20] MEDS: ATORVASTATIN 40 MG TAB PO SCH (07:14)
[2017-10-20] MEDS: DOXYCYCLINE HYCLATE 100 MG CAP PO SCH (07:14)
[2017-10-20] MEDS: CARBIDOPA/LEVODOPA 25/100MG TAB PO SCH (07:14)
[2017-10-20] MEDS: AMLODIPINE BESYLATE 5 MG TAB PO SCH (07:14)
[2017-10-20] MEDS ORDERED: METOPROLOL SUCC 25MG EXT REL TAB PO SCH (09:00)
[2017-10-20] MEDS ORDERED: CLOPIDOGREL BISULFATE 75 MG TAB PO SCH (09:00)
--- NOTE | 2017-10-20 10:18 | Cardiology Follow-Up ---
Subjective Subjective Date of Service: Oct 20, 2017. Pt evaluation today including: conversation w/ patient, conversation w/ family , physical exam, chart review, lab review, review of studies, review of inpatient medication list Additional Details: Pt seen and examined, with at bedside. States that she feels great. No groin discomfort. Denies cp, sob, palpitations, lightheadedness or dizziness. Tele reviewed: sinus rhythm without arrhythmia or significant ectopy. Problem List Medical Problems: (1) Contusion Status: Acute (2) Contusion of multiple sites Status: Acute (3) Left-sided chest wall pain Status: Acute (4) NSTEMI (non-ST elevated myocardial infarction) Status: Acute Review of Systems Respiratory: No see HPI, No cough, No sputum, No wheezing, No shortness of breath, No dyspnea on exertion, No dyspnea at rest, No hemoptysis, No problem reported Cardiac: + palpitations, No see HPI, No chest pain, No orthopnea, No PND, No edema, No claudication, No problem reported Objective Vital Signs Last Vital Signs Documentation Date Time Temp Pulse Resp B/P (MAP) Pulse Ox O2 Delivery O2 Flow Rate FiO2 10/20/17 08:00 Room Air 10/20/17 06:39 36.7 101 18 112/76 (88) 96 Physical Exam: General Appearance: WD/WN, no apparent distress Eyes: bilateral eyes normal inspection, bilateral eyes PERRL, bilateral eyes EOMI ENT: normal ENT inspection, hearing grossly normal, pharynx normal Neck: supple, no adenopathy, thyroid normal, no JVD, no carotid bruits, trachea midline Respiratory/Chest: chest non-tender, lungs clear, normal breath sounds, no respiratory distress, no accessory muscle use Cardiovascular: regular rate, rhythm, no edema, no JVD, no murmur, + gallop/S4 Abdomen: normal bowel sounds, non tender, soft, no organomegaly, no pulsatile mass Extremities: non-tender, normal inspection, no pedal edema, no calf tenderness 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 NSTEMI s/p PCI to LAD and D1 residual ostial stenosis of small OM branch tolerated well no groin discomfort added metoprolol this AM for resting sinus tach and residual disease would d/c to home on asa 81mg daily plavix 75mg daily (changed from Brilinta due to insurance coverage/cost) atorvastatin 40mg daily amlodipine 2.5mg daily metoprolol succinate 25mg daily my office will call to arrange f/u with me in 1 month 2. hypertension new now well controlled with low dose amlodipine 3. dyslipidemia LDL of 207 simvastatin changed to atorvastatin ?familial hypercholesterolemia, will require genetic testing upon d/c 4. tobacco abuse need for absolute cessation reviewed with patient ok to d/c to home from cardiac standpoint
[2017-10-20 11:26] VITALS: BP 105/72; PULSE 80; TEMP 36.6; O2SAT 99
--- NOTE | 2017-10-20 11:34 | Discharge Summary ---
Discharge Summary Date of Service Oct 20, 2017. Discharge Summary Admission Date: Oct 17, 2017 at 10:44 Discharge Date: Oct 20, 2017 Discharge Disposition: Home Principal Diagnosis: NSTEMI /SEVERE CORONARY ARTERY DISEASE Procedures: Procedure(s) Performed 10/19/17 Coronary Angiography, Left Heart Cath, LV Angiography Coronary Anatomy Dominant: Right Left Main (% Stenosis): Normal LAD (% Stenosis): Mid (30%) D1 (% Stenosis): Proximal (95%) Circumflex (% Stenosis): Normal OM1 (% Stenosis): Normal OM2 (% Stenosis): Ostial (80%) RCA (% Stenosis): Normal Left Ventricular Angiography EF (%): 60% SUCCESSFUL PCI OF MID LAD/1ST DIAGONAL BIFURCATION WITH 2 DRUG-ELUTING STENTS (T -STENTING - LAD [id number] X 28 {POST-DILATED WITH 4EUECU2 NC}, DIAGONAL [id number] X 18). Consultations: [facility] CARDIOLOGY Medication Reconciliation New Medications: Amlodipine Besylate (Amlodipine Besylate) 5 Mg Tab 2.5 MG PO QAM for 30 Days, #15 TAB 2 Refills Aspirin (Aspirin) 81 Mg Tab 81 MG PO QAM for 30 Days, #30 TAB 2 Refills Atorvastatin (Lipitor) 40 Mg Tab 40 MG PO QAM for 30 Days, #30 TAB 2 Refills Clopidogrel Bisulfate (Clopidogrel) 75 Mg Tab 75 MG PO QAM for 30 Days, #30 TAB 2 Refills TAKE WITH FOOD Metoprolol Succinate (Metoprolol Succinate ER) 25 Mg Tabcr 25 MG PO QAM for 30 Days, #30 TABS 2 Refills Nitroglycerin (Nitrostat) 0.4 Mg/1 Tab Subl 0.4 MG SL UD PRN for Chest Pain, #30 TAB 2 Refills Continued Medications: Aripiprazole (Abilify) 15 Mg Tab 15 MG PO DAILY Carbidopa/Levodopa (Sinemet 25MG/100MG) Tab 1 TAB PO TID Prazosin Hcl (Prazosin) 2 Mg Cap 2 MG PO HS Ranitidine Hcl (Zantac) 300 Mg Tab 150 MG PO BID, TAB Discontinued Medications: Pantoprazole (Protonix) 40 Mg Tab 40 MG PO DAILY, TAB Propranolol Hcl (Propranolol Hcl) 40 Mg Tab 40 MG PO BID Simvastatin (Zocor) 40 Mg Tab 40 MG PO QPM, 0 Refills Referrals At Discharge Follow up Referrals: [facility] Referral - Within 6 Weeks with Og Ford D.O. Physician Referral - 10/23/17 with Rosario Winkler, Admission Information HPI (per Admitting provider): This is a 47-year-old female who has a significant PMH of HLD, anxiety, depression, PTSD, RLS, GERD who presented to [facility] with intermittent chest pain 1 day. Chest pain initially started yesterday afternoon, was intermittent in nature, lasting 10-15 minutes, substernal with left arm radiation and tingling, occurring at rest and when exerting herself, like walking. Today patient was walking at [facility] when she developed substernal chest pain that radiated to her left arm, lasted approximately 10-15 minutes, resolved with rest. With chest pain episodes she denies shortness of breath, palpitations, hemopytsis, lightheadedness, dizziness, fever, chills, sweats, change in vision, change in hearing, nausea, vomiting, diarrhea, change in bowel or bladder habits. Patient arrived via EMS, on site was given 4 chewable baby aspirin. Upon presenting to ED chest pain had subsided; however ECG [facility] revealed subtle inferior lead ST depressions. Initial troponin was elevated at 0.447, heparin drip initiated. Further lab work revealed negative d -dimer, relatively unremarkable CBC and BMP except hypokalemia at 3.3. Chest x- ray showed no acute cardiopulmonary abnormality. Throughout ED she was hypertensive with BP 150s/100s. Patient is being admitted for further workup of chest pain, HTN and elevated troponin. Physical Exam (per Admitting): General Appearance: WD/WN, no apparent distress, + pertinent finding ( poorly groomed, requesting to go outside and smoke, engaging on phone during H and P) Head: normocephalic, atraumatic Eyes: normal inspection, sclerae normal ENT: normal ENT inspection, hearing grossly normal, + pertinent finding ( Mucous membranes moist, teeth absent) Neck: supple, no adenopathy, thyroid normal, no JVD Respiratory/Chest: chest non-tender, lungs clear, normal breath sounds, no respiratory distress, no accessory muscle use Cardiovascular: regular rate, rhythm, no edema, no gallop, no JVD, + systolic murmur (Soft 1/6 LASHON noted RUSB/LUSB) Abdomen/GI: normal bowel sounds, non tender, soft, no organomegaly Back: normal inspection, no muscle spasm Neurologic/Psych: no motor/sensory deficits, alert, normal mood/affect, oriented x 3 Skin: normal color, warm/dry, no rash Hospital Course No complaint of chest pain, shortness of breath No pain or discomfort at cardiac cath site Evaluated by cardiology earlier today Stable to be discharged home PHYSICAL EXAM : General-no sign of distress Eyes-sclera non icteric ENT-moist oral mucosa Neck-no JVD , no Carotid bruit , trachea midline Lungs-CTA Heart-irregular Abdomen-soft, non tender Extremities-no lower ext edema, no rash or deformity , rt groin cath site intact , no bleeding or swelling Neuro-no focal neurological deficit Last 8 Hrs Date Time Temp Pulse Resp B/P (MAP) Pulse Ox O2 Delivery O2 Flow Rate FiO2 10/20/17 11:26 36.6 80 20 105/72 (83) 99 Room Air 10/20/17 08:00 Room Air 10/20/17 06:39 36.7 101 18 112/76 (88) 96 Room Air 10/20/17 04:08 37.0 105 18 117/73 (88) 98 Room Air CHEST PAIN/STABLE ANGINA/NSTEMI : Presented with angina symptom with elevated troponin ECHO shows no wall motion abnormality appreciate input form cardiology s/p Cardiac cath today Shows severe coronary artery disease, Shows a 30% mid LAD stenosis, 80% ostial stenosis, 95% stenosis of proximal diagonal Status post successful drug-eluting stent placed on LAD and diagonal bar for bifurcation D1 Patient will need to be on uninterrupted dual antiplatelet for 12 months Does not have insurance coverage for Brilinta Started on Plavix 75 mg p.o. daily plus aspirin 81 mg p.o. daily Patient will be observed on telemetry overnight Plan to discharge home tomorrow Cardiology follow-up in 3-4 weeks Patient is strongly counseled for smoking cessation Referral made for cardiac rehab CT CHEST WITH OUT CONTRAST ; 1. No evidence of pulmonary embolus. 2. Diffuse added density of the lungs. It is difficult to exclude an atypical infectious etiology. Combined with the presence of mosaic attenuation, this could suggest reactive airways disease or viral bronchiolitis. No focal consolidation to suggest lobar pneumonia. 3. Small reactive hilar and mediastinal lymph nodes. -ordered empirically for PO Doxycycline /no cough or shortness of breath -We will DC antibiotic after today's dose HYPERTENSIVE URGENCY Presented with elevated blood pressure, causing a cardiac strain elevated troponin Pressure improved after addition of low-dose amlodipine /Norvasc 2.5 mg daily HYPERLIPIDEMIA: LDL more than 200 Simvastatin changed to atorvastatin Goal LDL less than 70 TOBACCO ABUSE DISORDER: Counseled for absolute cessation of smoking to reduce risk factor for coronary artery disease, stroke FULL CODE DVT PROPHYLAXIS sub q heparin DISPOSITION plan to discharge pt home tomorrow Total time spent on discharge = 40 min This includes examination of the patient, discharge planning, medication reconciliation, and communication with other providers. Discharge Instructions Discharge Instructions Date of Service Oct 20, 2017. Admission Reason for Admission: Chest Pain Discharge Discharge Diagnosis / Problem: NSTEMI /SEVERE CORONARY ARTERY DISEASE Discharge Goals Goal(s): Decrease discomfort, Improve function, Increase independence, Improve disease control, Diagnostic testing, Therapeutic intervention Activity Recommendations Activity Limitations: as noted below . Instructions / Follow-Up Instructions / Follow-Up HOSPITAL FOLLOW : 10/23/2017 @ 1:[address] Rosario Winkler, [facility] CARDIOLOGY FOLLOW UP WITH DR FORD IN 3-4 WEEKS , OFFICE WILL CALL WITH APPOINTMENT NEEDS GENETIC TESTING TO ASSESS FAMILIAL HYPERCHOLESTEROLEMIA REPEAT FASTING LIPID PANEL IN 6 MONTHS GOAL LDL < 70 TO PREVENT FUTURE CORONARY ARTERY DISEASE /STROKE ( YOU CURRENT LDL IS 207) IT IS VERY IMPORTANT ASPIRIN 81 MG /PLAVIX 75 MG -DAILY UNINTERRUPTED FOR 1 YR PLEASE TAKE WITH FOOD ( BEST TAKE AFTER DINNER OR THE BIGGEST MEAL OF THE DAY TO PREVENT BLEEDING /ULCER IN STOMACH ) PLEASE NOTIFY YOUR FAMILY PHYSICIAN WITH ANY EVENT OF DARK STOOL , BLOOD IN STOOL ( SIGN OF BLEEDING IN EITHER STOMACH OR LOWER GUT ) DO NOT TAKE MOTRIN , ALEVE , ADVIL, NAPROXEN , IBUPROFEN-WILL INCREASE YOU BLEEDING RISK IT IS VERY IMPORTANT TO QUIT SMOKING TO PREVENT FUTURE HEART ATTACK /STROKE ACTIVITY RECOMMENDATIONS: It is common to feel weak and fatigue for a few days. * Do not drive or operate any motorized equipment for the next three days. * Limit stair usage (2 or 3 trips a day only) for the next three days. * Do not lift anything heavier than 10 pounds for the next three days. * Do not engage in vigorous exercise or any sports for the next five days. * You may shower the day after your procedure, but do not immerse the area for three days. Cleanse the site gently with soap and water. SPECIAL CARE INSTRUCTIONS: * You may replace the pressure dressing or band-aid the morning after the procedure. * After your procedure, it is normal to have a small bruise or small lump at the site. Examine your site daily for any change in the bruise or lump, redness, swelling, drainage or numbness. Notify your doctor if any change. BLEEDING: * If there is a small amount of bleeding at the site, lie down and apply firm pressure with a clean cloth for ten minutes. When the bleeding stops, lie quietly keeping the procedure limb straight for six hours. Notify your doctor as soon as possible. * If the bleeding does not stop after ten minutes or if there is a large amount of bleeding or spurting, call 911 immediately. Continue to lie down and hold firm pressure until help arrives. SKIN IRRITATION: * You may experience some redness and/or swelling in the area where radiation was administered. If any skin irritation occurs, please contact your family physician. FOLLOW UP VISIT: Keep any scheduled doctor appointments. 10/23/2017 @ 1:[address] Rosario Winkler DO [facility] Diet Patient's current hospital diet: AHA Diet (Heart Healthy) Discharge Diet Recommended Diet: AHA Diet (Heart Healthy) Pending Studies Studies pending at discharge: no Laboratory Results Lipid Panel Test 10/17/17 03:08 Range/Units Triglycerides Level 125 0-150 mg/dl Cholesterol Level 262 H 0-200 mg/dl HDL Cholesterol 30 mg/dl Cholesterol/HDL Ratio 8.7 LDL Cholesterol, Calculated 207 mg/dl Medical Emergencies . Who to Call and When: Medical Emergencies: If at any time you feel your situation is an emergency, please call 911 immediately. . Non-Emergent Contact Non-Emergency issues call your: Primary Care Provider . . "Provider Documentation" section prepared by Sidra Aiken. . Additional Copies To Rosario Winkler,Og Blood D.O.
--- NOTE | 2017-10-20 11:47 | Discharge Instructions ---
Discharge Instructions Date of Service Oct 20, 2017. Admission Reason for Admission: Chest Pain Discharge Discharge Diagnosis / Problem: NSTEMI /SEVERE CORONARY ARTERY DISEASE Discharge Goals Goal(s): Decrease discomfort, Improve function, Increase independence, Improve disease control, Diagnostic testing, Therapeutic intervention Activity Recommendations Activity Limitations: as noted below . Instructions / Follow-Up Instructions / Follow-Up HOSPITAL FOLLOW : 10/23/2017 @ 1:[address] Rosario Winkler, [facility] CARDIOLOGY FOLLOW UP WITH DR FORD IN 3-4 WEEKS , OFFICE WILL CALL WITH APPOINTMENT NEEDS GENETIC TESTING TO ASSESS FAMILIAL HYPERCHOLESTEROLEMIA REPEAT FASTING LIPID PANEL IN 6 MONTHS GOAL LDL < 70 TO PREVENT FUTURE CORONARY ARTERY DISEASE /STROKE ( YOU CURRENT LDL IS 207) IT IS VERY IMPORTANT ASPIRIN 81 MG /PLAVIX 75 MG -DAILY UNINTERRUPTED FOR 1 YR PLEASE TAKE WITH FOOD ( BEST TAKE AFTER DINNER OR THE BIGGEST MEAL OF THE DAY TO PREVENT BLEEDING /ULCER IN STOMACH ) PLEASE NOTIFY YOUR FAMILY PHYSICIAN WITH ANY EVENT OF DARK STOOL , BLOOD IN STOOL ( SIGN OF BLEEDING IN EITHER STOMACH OR LOWER GUT ) DO NOT TAKE MOTRIN , ALEVE , ADVIL, NAPROXEN , IBUPROFEN-WILL INCREASE YOU BLEEDING RISK IT IS VERY IMPORTANT TO QUIT SMOKING TO PREVENT FUTURE HEART ATTACK /STROKE ACTIVITY RECOMMENDATIONS: It is common to feel weak and fatigue for a few days. * Do not drive or operate any motorized equipment for the next three days. * Limit stair usage (2 or 3 trips a day only) for the next three days. * Do not lift anything heavier than 10 pounds for the next three days. * Do not engage in vigorous exercise or any sports for the next five days. * You may shower the day after your procedure, but do not immerse the area for three days. Cleanse the site gently with soap and water. SPECIAL CARE INSTRUCTIONS: * You may replace the pressure dressing or band-aid the morning after the procedure. * After your procedure, it is normal to have a small bruise or small lump at the site. Examine your site daily for any change in the bruise or lump, redness, swelling, drainage or numbness. Notify your doctor if any change. BLEEDING: * If there is a small amount of bleeding at the site, lie down and apply firm pressure with a clean cloth for ten minutes. When the bleeding stops, lie quietly keeping the procedure limb straight for six hours. Notify your doctor as soon as possible. * If the bleeding does not stop after ten minutes or if there is a large amount of bleeding or spurting, call 911 immediately. Continue to lie down and hold firm pressure until help arrives. SKIN IRRITATION: * You may experience some redness and/or swelling in the area where radiation was administered. If any skin irritation occurs, please contact your family physician. FOLLOW UP VISIT: Keep any scheduled doctor appointments. 10/23/2017 @ 1:[address] Rosario Winkler, [facility] Diet Patient's current hospital diet: AHA Diet (Heart Healthy) Discharge Diet Recommended Diet: AHA Diet (Heart Healthy) Pending Studies Studies pending at discharge: no Laboratory Results Lipid Panel Test 10/17/17 03:08 Range/Units Triglycerides Level 125 0-150 mg/dl Cholesterol Level 262 H 0-200 mg/dl HDL Cholesterol 30 mg/dl Cholesterol/HDL Ratio 8.7 LDL Cholesterol, Calculated 207 mg/dl Medical Emergencies . Who to Call and When: Medical Emergencies: If at any time you feel your situation is an emergency, please call 911 immediately. . Non-Emergent Contact Non-Emergency issues call your: Primary Care Provider . . "Provider Documentation" section prepared by Sidra Aiken. .
[2017-10-20] MEDS ORDERED: NRV5 PO (11:53)
[2017-10-20] MEDS ORDERED: LPT40 PO (11:53)
[2017-10-20] MEDS ORDERED: PLV75 PO (11:53)
[2017-10-20] MEDS ORDERED: TPRSR25 PO (11:53)
[2017-10-20] MEDS ORDERED: ASPI-461 PO (11:53)
[2017-10-20] MEDS ORDERED: NTRSLP4 SL (11:53)
[2017-10-20 11:55] VITALS: BP 105/72; PULSE 80; TEMP 36.6; O2SAT 99
== END 2017-10-20 12:30 | disposition home or self-care (01) | DRG 247 ==
LOC: EDBD 12:46 → C.EDC 12:47 → C.2T 14:50 → ENRESERV 14:56 → OBSVTOIN 10-17 10:44
PROVIDERS: ADMIT Internal Medicine; ATTEND Hospitalist
PROC: B215YZZ Fluoroscopy of Left Heart using Other Contrast (ICD-10-PCS; 2017-10-19)
PROC: 4A023N7 Measurement of Cardiac Sampling and Pressure, Left Heart, Percutaneous Approach (ICD-10-PCS; 2017-10-19)
PROC: B211YZZ Fluoroscopy of Multiple Coronary Arteries using Other Contrast (ICD-10-PCS; 2017-10-19)
PROC: 0271356 Dilation of Coronary Artery, Two Arteries, Bifurcation, with Two Drug-eluting Intraluminal Devices, Percutaneous Approach (ICD-10-PCS; principal; 2017-10-19 08:49)
DX: I21.4 Non-ST elevation (NSTEMI) myocardial infarction (principal); I16.0 Hypertensive urgency; R79.89 Other specified abnormal findings of blood chemistry; F17.200 Nicotine dependence, unspecified, uncomplicated; E87.6 Hypokalemia; I25.10 Atherosclerotic heart disease of native coronary artery without angina pectoris; I10 Essential (primary) hypertension; E78.5 Hyperlipidemia, unspecified; E78.01 Familial hypercholesterolemia; F32.9 Major depressive disorder, single episode, unspecified; F41.9 Anxiety disorder, unspecified; F43.10 Post-traumatic stress disorder, unspecified; G25.81 Restless legs syndrome; K21.9 Gastro-esophageal reflux disease without esophagitis; Z88.0 Allergy status to penicillin; Z88.2 Allergy status to sulfonamides; Z91.048 Other nonmedicinal substance allergy status; Z82.49 Family history of ischemic heart disease and other diseases of the circulatory system

== ENCOUNTER 2019-12-21 12:47 | Inpatient (IN) ==
--- NOTE | 2019-12-21 13:58 | Emergency Department Note ---
Impression & Plan Chest pain, Elevated troponin I level ED Provider Note NAME: VIVI PETTIT AGE: 49 SEX: F : 1970 ARRIVES VIA: Walk-In INFORMANT: Patient, ED PROVIDER(S): Oleg Horn DO CHIEF COMPLAINT: Chest pain HPI: The patient is a 49-year-old female with a history of chest pain who presented to the emergency department for an evaluation of chest pain as well as anxiety. The patient states that she was experiencing anxiety earlier this morning but then started noticing anterior chest pain. She states the pain is similar to when she had cardiac issues in the past. She does have a history of coronary artery disease as well as stenting. She noticed pain into her left shoulder. She started to have worsening anxiety and took her medication for anxiety but also took nitroglycerin. The patient states that the pain was relie kemi after taking nitroglycerin. She is not had to use nitroglycerin in 2 years. Patient states that she did not see her primary care physician but presented to the emergency department for further evaluation. At this time the patient is pain-free. She denies having any lower extremity swelling. She has no difficulty breathing at this time. She states her anxiety is significantly improved as well. ROS: See above HPI for pertinent positives & negatives. A total of 10 systems reviewed and were otherwise negative. PAST MEDICAL HISTORY: See Below PAST SURGICAL HISTORY: See Below FAMILY HISTORY: See Below SOCIAL HISTORY: See Below HOME MEDICATIONS: See Below ALLERGIES: See Below VITALS: See Below PHYSICAL EXAMINATION: GENERAL: Patient is awake alert in no acute distress patient is resting comfortably and showing no signs of anxiety EYES: The conjunctivae are clear. The pupils are round and reactive. EARS, NOSE, MOUTH AND THROAT: The nose is without any evidence of any deformity. NECK: The neck is nontender and supple. RESPIRATORY: Normal respiratory effort is noted there is no evidence of wheezing rhonchi or rales CARDIOVASCULAR: Regular rate and rhythm noted there no murmurs rubs or gallops normal S1 normal S2. GASTROINTESTINAL: The abdomen is soft. Abdomen is nontender. MUSCULOSKELETAL/EXTREMITIES: There is no evidence of gross deformity full range of motion is noted in the hips and shoulders. SKIN: There is no obvious evidence of any rash. There are no petechiae, pallor or cyanosis noted. NEUROLOGIC: Patient is awake alert and oriented x3 strength is symmetric patellar reflexes are 2+ bilaterally MEDICAL DECISION MAKING: The patient is a 49-year-old female who has a history of coronary artery disease who presented to the emergency department for chest pain. The patient describes anterior chest pain to the left shoulder which was consistent with her previous episode of coronary syndrome. The patient was treated with aspirin in the emergency department. She was reevaluated multiple times. Initial troponin did not show an elevation. Her EKG showed no acute changes from previous. A second troponin was done and did show elevation above normal. I discussed this with the patient and at this time I recommended inpatient management. I discussed her case with the on-call [facility]. They have agreed to evaluate the patient in the emergency department for further management and disposition. The patient remained pain-free. Triage Nursing notes reviewed. Prior medical records reviewed Vital Signs: reviewed and remarkable for no significant abnormalities Differential diagnosis: Cardiac ischemia, aortic dissection, pulmonary embolism, pneumothorax, pneumonia, pericarditis, myocarditis, esophageal rupture, GERD, cholecystitis, pancreatitis, musculoskeletal, as well as other pathologies. ER treatment provided: See below Diagnostics interpreted by me: ECG: EKG was obtained in the emergency department. My interpretation is normal sinus rhythm at 71 bpm. There was no ectopy. There was no acute ST segment abnormalities noted. This was compared to a tracing from October 22, 2017. No significant changes were noted. Cardiac Monitoring: An order was placed for continuous cardiac monitoring. The monitor shows a rate of 65 bpm with sinus rhythm. Laboratory studies: As stated above and show below. Imaging studies: See below Consultation(s): [id number]: I discussed this case with Sandra who is on-call for the [facility] group. Past Med/Surg History Medical History Anxiety Depression History of - section (10/23/12) Hyperlipidemia PTSD (post-traumatic stress disorder) Restless leg syndrome Tobacco abuse Surgical History History of arthroscopy of right knee History of delivery History of colonoscopy Social History Smoking Status: Current every day smoker Preferred Language: Latvian Feels Safe at Home: Yes Allergies Allergies Allergy/AdvReac Type Severity Reaction Status Date / Time adhesive Allergy Mild Rash Verified 12/21/19 15:02 Penicillins Allergy Mild HIVES Verified 12/21/19 15:02 Sulfa (Sulfonamide Allergy Unknown hives Verified 12/21/19 15:02 Antibiotics) Home Meds Home Medications Medication Instructions Recorded Confirmed amlodipine 2.5 mg PO QAM 12/21/19 12/21/19 aripiprazole 20 mg PO DAILY 12/21/19 12/21/19 aspirin 81 mg PO DAILY 12/21/19 12/21/19 atorvastatin [Lipitor] 40 mg PO DAILY 12/21/19 12/21/19 buspirone 7.5 mg PO BID 12/21/19 12/21/19 carbidopa-levodopa [Sinemet] 1 - 3 tab PO HS 12/21/19 12/21/19 clopidogrel [Plavix] 75 mg PO DAILY 12/21/19 12/21/19 cyclobenzaprine 5 mg PO TID PRN 12/21/19 12/21/19 hydroxyzine HCl 50 mg PO TID PRN 12/21/19 12/21/19 metoprolol succinate 25 mg PO DAILY 12/21/19 12/21/19 nitroglycerin [Nitrostat] 0.4 mg SUBLINGUAL DIRECTED PRN 12/21/19 12/21/19 omeprazole 20 mg PO DAILY 12/21/19 12/21/19 prazosin 1 mg PO HS 12/21/19 12/21/19 prazosin 2 mg PO HS 12/21/19 12/21/19 trazodone 50 mg PO HS PRN 12/21/19 12/21/19 Results & Data (ED) Vital Signs Vital Signs - 24 hr 12/21/19 12:57 12/21/19 15:08 12/21/19 17:58 Temperature 37.2 C Temperature Source Oral Pulse Rate 74 Pulse Rate [Right Finger] 75 72 Respiratory Rate 17 17 20 Respiratory Effort / Characteristics Non-Labored Spontaneous Respiratory Depth Normal Blood Pressure 107/75 Blood Pressure [Right Arm] 124/72 154/86 H Blood Pressure Mean 85 Blood Pressure Mean [Right Arm] 89 108 Blood Pressure Position Sitting Pulse Oximetry 95 96 95 Oxygen Delivery Method Room Air Sepsis Recent Fever Within 48 Hours No Sepsis New/Unexplained Change in Mental Status No Sepsis Action Taken by Nursing No Action Required 12/21/19 19:16 Temperature Temperature Source Pulse Rate Pulse Rate [Right Finger] 63 Respiratory Rate 19 Respiratory Effort / Characteristics Respiratory Depth Blood Pressure Blood Pressure [Right Arm] 120/79 Blood Pressure Mean Blood Pressure Mean [Right Arm] 92 Blood Pressure Position Pulse Oximetry 97 Oxygen Delivery Method Sepsis Recent Fever Within 48 Hours Sepsis New/Unexplained Change in Mental Status Sepsis Action Taken by [facility] Medications Current Medication List: was personally reviewed by me Laboratory Data Attestation: I reviewed the patient's lab results. Result diagrams: 12/21/19 14:16 12/21/19 14:16 Lab Results 12/21/19 12/21/19 12/21/19 Range/Units 14:16 14:16 14:16 WBC 10.17 (4.8-10.8) K/uL RBC 4.53 (4.2-5.4) M/uL Hgb 15.2 (12.0-16.0) g/dL Hct 44.9 (37-47) % MCV 99.1 (80-100) fL MCH 33.6 (25-34) pg MCHC 33.9 (32-36) g/dL RDW Std Deviation 50.7 H (36.4-46.3) fL RDW Coeff of Luis Antonio 14.2 (11.5-14.5) % Plt Count 304 (130-400) K/uL MPV 11.3 H (7.4-10.4) fL Immature Gran % (Auto) 0.3 % Neut % (Auto) 61.3 % Lymph % (Auto) 33.0 % Day % (Auto) 3.6 % Eos % (Auto) 1.4 % Baso % (Auto) 0.4 % Neut # (Auto) 6.23 (1.4-6.5) K/uL Lymph # (Auto) 3.36 (1.2-3.4) K/uL Day # (Auto) 0.37 (0.11-0.59) K/uL Eos # (Auto) 0.14 (0-0.5) K/uL Baso # (Auto) 0.04 (0-0.2) K/uL Immature Gran # (Auto) 0.03 H (0.00-0.02) K/uL PT 10.6 (9.0-12.0) Seconds INR 1.0 (0.9-1.1) APTT 24.7 (21.0-31.0) Seconds PTT Ratio 0.9 Sodium 141 (136-145) mmol/L Potassium 3.0 L (3.5-5.1) mmol/L Chloride 109 H (98-107) mmol/L Carbon Dioxide 27 (21-32) mmol/L Anion Gap 5.0 (3-11) BUN 13 (7-18) mg/dl Creatinine 0.88 (0.6-1.2) mg/dl Est Cr Clr Drug Dosing 77.9 ml/min Est GFR ( Amer) 90.7 Est GFR (Non-Af Amer) 78.2 BUN/Creatinine Ratio 15.2 (10-20) Glucose 81 (70-99) mg/dl Calcium 8.9 (8.5-10.1) mg/dl Total Bilirubin 0.3 (0.2-1) mg/dl AST 30 (15-37) U/L ALT 57 (12-78) U/L Alkaline Phosphatase 196 H (45-117) U/L Troponin I < 0.015 (0-0.045) ng/ml Total Protein 7.1 (6.4-8.2) gm/dl Albumin 3.7 (3.4-5.0) gm/dl Globulin 3.4 (2.5-4.0) gm/dl Albumin/Globulin Ratio 1.1 (0.9-2) Lipase 342 (73-393) U/L 12/21/19 Range/Units 16:23 WBC (4.8-10.8) K/uL RBC (4.2-5.4) M/uL Hgb (12.0-16.0) g/dL Hct (37-47) % MCV (80-100) fL MCH (25-34) pg MCHC (32-36) g/dL RDW Std Deviation (36.4-46.3) fL RDW Coeff of Luis Antonio (11.5-14.5) % Plt Count (130-400) K/uL MPV (7.4-10.4) fL Immature Gran % (Auto) % Neut % (Auto) % Lymph % (Auto) % Day % (Auto) % Eos % (Auto) % Baso % (Auto) % Neut # (Auto) (1.4-6.5) K/uL Lymph # (Auto) (1.2-3.4) K/uL Day # (Auto) (0.11-0.59) K/uL Eos # (Auto) (0-0.5) K/uL Baso # (Auto) (0-0.2) K/uL Immature Gran # (Auto) (0.00-0.02) K/uL PT (9.0-12.0) Seconds INR (0.9-1.1) APTT (21.0-31.0) Seconds PTT Ratio Sodium (136-145) mmol/L Potassium (3.5-5.1) mmol/L Chloride (98-107) mmol/L Carbon Dioxide (21-32) mmol/L Anion Gap (3-11) BUN (7-18) mg/dl Creatinine (0.6-1.2) mg/dl Est Cr Clr Drug Dosing ml/min Est GFR ( Amer) Est GFR (Non-Af Amer) BUN/Creatinine Ratio (10-20) Glucose (70-99) mg/dl Calcium (8.5-10.1) mg/dl Total Bilirubin (0.2-1) mg/dl AST (15-37) U/L ALT (12-78) U/L Alkaline Phosphatase (45-117) U/L Troponin I 0.093 H* (0-0.045) ng/ml Total Protein (6.4-8.2) gm/dl Albumin (3.4-5.0) gm/dl Globulin (2.5-4.0) gm/dl Albumin/Globulin Ratio (0.9-2) Lipase (73-393) U/L Administered Medications Discontinued Medications Aspirin (Aspirin Chew 324 Mg) 324 mg PO NOW STA Stop: 12/21/19 17:49 Last Admin: 12/21/19 17:58 Dose: 324 mg Documented by: [id number] Heparin Sodium (Porcine) (Heparin Sod (Porcine) 1000 Unit/Ml 10 Ml Vial) Confirm Administered Dose 10,000 units .ROUTE .STK-MED ONE Stop: 12/21/19 18:37 Last Admin: 12/21/19 18:39 Dose: 5,000 units Documented by: [id number] Cosigned by: [id number] Heparin Sodium/Dextrose (Heparin 61204 Unit/500 Ml D5w) Confirm Administered Dose 25,000 units IV .STK-MED ONE Stop: 12/21/19 18:36 Last Admin: 12/21/19 18:39 Dose: 22 units Documented by: [id number] Cosigned by: [id number] Potassium Chloride (Potassium Chloride 20 Meq Tabcr) 20 meq PO NOW STA Stop: 12/21/19 15:01 Last Admin: 12/21/19 15:07 Dose: 20 meq Documented by: [id number] Imaging Data Radiologist's Impression: Patient: Tara PETTIT Date: 12/21/19 MR#: [id number]: [address] Acct ID:[id number]: Date: 1970[facility] Zip: [place] [id number] Age: 49Location: ED Sex: FRoom/Bed: Att Phy:Diagnosis: HX HEART ATTACKHIGH ANXIETYSHOULDER PAIN,HEADACHE Ginny Phy: Rosario Winkler DOService Date: 12/21/19 Fam Phy:Interpreting Phy: Benjamín Nice MD Admit Phy: Ordering Phy: Oleg Horn DO cc: ~ XR chest 1V portable CLINICAL HISTORY: Atypical chest pain COMPARISON STUDY: 10/16/2017 FINDINGS: The cardiac and mediastinal contours are normal. There is no evidence of focal pulmonary consolidation. There is no evidence of failure. No pleural effusions are visualized.[There is a very subtle interstitial thickening, similar to the prior studies. IMPRESSION: No active disease in the chest. ACT 112: Negative or not required by law. Electronically signed by: Benjamín Nice M.D. 12/21/2019 2:34 PM Dictated: 12/21/19 143 Transcribed: 12/21/19 143 Blood Pressure Blood Pressure Findings: Normal blood pressure Discharge Plan Visit Data Chief Complaint: Cardiac Assessment Stated Complaint: HX HEART ATTACKHIGH ANXIETYSHOULDER PAIN,HEADACHE ED Provider: Oleg Horn Discharge Problem: Chest pain, Elevated troponin I level Patient Disposition: Being Evaluated by Hospitalist Condition: Good Discharge Instructions Interventions: ED Discharge Assessment Last Done: 12/21/19 19:17 Forms Stand Alone Forms: [employer] Prescriptions Prescriptions: No Action atorvastatin [Lipitor] 40 mg Tablet 40 mg PO DAILY RF: 0 prazosin 1 mg Capsule 1 mg PO HS RF: 0 amlodipine 2.5 mg Tablet 2.5 mg PO QAM RF: 0 clopidogrel [Plavix] 75 mg Tablet 75 mg PO DAILY RF: 0 aspirin 81 mg Tablet,Delayed Release (Dr/Ec) 81 mg PO DAILY RF: 0 nitroglycerin [Nitrostat] 0.4 mg Tablet, Sublingual 0.4 mg sublingual DIRECTED PRN (Reason: Chest Pain) RF: 0 metoprolol succinate 25 mg tablet extended release 24 hr 25 mg PO DAILY RF: 0 carbidopa-levodopa [Sinemet] 25-100 mg Tablet 1 - 3 tab PO HS RF: 0 prazosin 2 mg Capsule 2 mg PO HS RF: 0 cyclobenzaprine 5 mg Tablet 5 mg PO TID PRN (Reason: MUSCLE SPASMS) RF: 0 trazodone 50 mg tablet 50 mg PO HS PRN (Reason: Sleep) RF: 0 omeprazole 20 mg capsule,delayed release(DR/EC) 20 mg PO DAILY RF: 0 buspirone 7.5 mg tablet 7.5 mg PO BID RF: 0 aripiprazole 20 mg tablet 20 mg PO DAILY RF: 0 hydroxyzine HCl 50 mg tablet 50 mg PO TID PRN (Reason: Anxiety) RF: 0 Referrals Referrals: Rosario Winkler DO [Primary Care Provider] -
[2019-12-21 14:32] LABS: Basophils # (auto) 0.04 K/uL (0-0.2); Basophils % (auto) 0.4 %; Eosinophils # (auto) 0.14 K/uL (0-0.5); Eosinophils % (auto) 1.4 %; Hematocrit (blood only) 44.9 % (37-47); Hemoglobin 15.2 g/dL (12.0-16.0); Immature Granulocytes # (auto) 0.03 K/uL (0.00-0.02); Immature Granulocytes % (auto) 0.3 %; Lymphocytes # (auto) 3.36 K/uL (1.2-3.4); Mean Corpuscular Hemoglobin 33.6 pg (25-34); Mean Corpuscular Hgb Conc 33.9 g/dL (32-36); Mean Corpuscular Volume 99.1 fL (80-100); Mean Platelet Volume 11.3 fL (7.4-10.4); Monocytes # (auto) 0.37 K/uL (0.11-0.59); Monocytes % (auto) 3.6 %; Neutrophils # (auto) 6.23 K/uL (1.4-6.5); Neutrophils % (auto) 61.3 %; Platelet Count 304 K/uL (130-400); RDW Coefficient of Variation 14.2 % (11.5-14.5); RDW Standard Deviation 50.7 fL (36.4-46.3); Red Blood Count 4.53 M/uL (4.2-5.4); White Blood Count 10.17 K/uL (4.8-10.8)
--- NOTE | 2019-12-21 14:35 | XRay Report ---
XR chest 1V portable CLINICAL HISTORY: Atypical chest pain COMPARISON STUDY: 10/16/2017 FINDINGS: The cardiac and mediastinal contours are normal. There is no evidence of focal pulmonary co nsolidation. There is no evidence of failure. No pleural effusions are visualized.[There is a very yanez btle interstitial thickening, similar to the prior studies. IMPRESSION: No active disease in the chest. ACT 112: Negative or not required by law. Electronically signed by: Benjamín Nice M.D. 12/21/2019 2:34 PM
[2019-12-21 14:49] LABS: Partial Thromboplastin Ratio 0.9; Partial Thromboplastin Time 24.7 Seconds (21.0-31.0); Prothrombin Time 10.6 Seconds (9.0-12.0)
[2019-12-21 14:54] LABS: Alanine Aminotransferase 57 U/L (12-78); Albumin Level 3.7 gm/dl (3.4-5.0); Aspartate Aminotransferase 30 U/L (15-37); BUN Creatinine Ratio 15.2 (10-20); Blood Urea Nitrogen 13 mg/dl (7-18); Calcium 8.9 mg/dl (8.5-10.1); Carbon Dioxide 27 mmol/L (21-32); Chloride 109 mmol/L (98-107); Creatinine Clr Calc Pharmacy 77.9 ml/min; Est GFR (African American) 90.7; Est GFR (Non-African American) 78.2; Glucose 81 mg/dl (70-99); Lipase 342 U/L (73-393); Sodium 141 mmol/L (136-145)
[2019-12-21 14:59] LABS: Albumin Globulin Ratio 1.1 (0.9-2); Alkaline Phosphatase 196 U/L (45-117); Bilirubin,Total 0.3 mg/dl (0.2-1); Globulin 3.4 gm/dl (2.5-4.0); Total Protein 7.1 gm/dl (6.4-8.2); Troponin I < 0.015 ng/ml (0-0.045)
[2019-12-21] MEDS ORDERED: POTASSIUM CHLORIDE 20 MEQ TABCR PO STA (15:00)
--- NOTE | 2019-12-21 16:42 | Electrocardiogram Report ---
Test Reason : Blood Pressure : / mmHG Vent. Rate : 071 BPM Atrial Rate : 071 BPM P-R Int : 140 ms QRS Dur : 086 ms QT Int : 396 ms P-R-T Axes : 042 059 031 degrees QTc Int : 430 ms Normal sinus rhythm Normal ECG When compared with ECG of 19-OCT-2017 12:31, Nonspecific T wave abnormality no longer present Confirmed by Niko Wray ([id number]) on 12/21/2019 4:42:41 PM Referred By: ED Confirmed By:Niko Wray
[2019-12-21] MEDS ORDERED: ASPIRIN CHEW 324 MG PO STA (17:48)
[2019-12-21] MEDS ORDERED: HEPARIN SODIUM/DEXTROSE 25,000 UNITS/500 ML BAG IV SCH (18:30)
[2019-12-21] MEDS ORDERED: HEPARIN 25000 UNIT/500 ML D5W IV ONE (18:35)
[2019-12-21] MEDS ORDERED: HEPARIN SOD (PORCINE) 1000 UNIT/ML 10 ML VIAL ONE (18:36)
[2019-12-21] MEDS ORDERED: ACETAMINOPHEN 325 MG TAB PO PRN (20:18)
[2019-12-21] MEDS ORDERED: ONDANSETRON INJ 2 MG/ML 2 ML VIAL IV PRN (20:18)
[2019-12-21] MEDS ORDERED: ALUMINUM/MAGNESIUM SUSP 30 ML UDC PO PRN (20:18)
[2019-12-21] MEDS ORDERED: POLYETHYLENE (MIRALAX) 17 GM PACK PO PRN (20:18)
[2019-12-21] MEDS ORDERED: NITROGLYCERIN SL 0.4 MG/TAB TAB SL PRN (20:18)
[2019-12-21] MEDS ORDERED: MAGNESIUM HYDROXIDE SUSP 30 ML UDC PO PRN (20:18)
[2019-12-21] MEDS ORDERED: traZODone HCL 50 MG TAB PO PRN (20:18)
--- NOTE | 2019-12-21 20:23 | History & Physical Report ---
Date of Service December 21, 2019 Assessment & Plan (1) NSTEMI (non-ST elevated myocardial infarction): (2) CAD (coronary artery disease): This is a 49-year-old female who has significant past medical history of schizoaffective disorder, bipolar disorder, tobacco abuse, CAD with history of NSTEMI SARAH to LAD and D1, RLS who presents to ED secondary to left shoulder pain x1 hour that was relieved by nitro CEMENT LOADER. In ED she remained hemodynamically stable. Initial troponin was unremarkable will repeat troponin in 2 hours elevated to 0.093. Other lab abnormalities include hypokalemia at 3.0 and otherwise unremarkable CBC and CMP. Chest x-ray was negative for any acute cardiopulmonary normality. EKG with normal sinus rhythm without ST or T wave change. Repeat trop @ 2014 increased from 0.093 to 0.336 and continues to remain CP free. admit to PCU continue IV heparin gtt consult cardiology - discussed with Dr. Lala obtain echocardiogram lipid panel and a1c in a.m. continue ASA, plavix, statin and metoprolol (3) Hypokalemia: K 3.0, received 20 M EQ KCl p.o. in ED K rider 10 mEq x 2 Give 40 M EQ oral KCl at bedtime Repeat BMP in a.m. (4) HTN (hypertension): Blood pressure stable Continue metoprolol and amlodipine (5) Hyperlipidemia: continue statin (6) Bipolar disorder: continue aripriprazole, buspar, prazosin mood stable (7) Anxiety: prn hydroxyzine pt takes mostly at HS but can take up to TID mood stable (8) Tobacco abuse: encourage smoking cessation (9) Restless leg syndrome: continue sinemet (takes up to 3 tabs at HS per pt) (10) DVT prophylaxis: IV Heparin Disposition: admit to PCU Follow up: PCP Dr. Winkler upon discharge Pt was seen and examined in collaboration with Dr. Meek, please see addendum Admission and Anticipated Discharge Date Admission Date: December 21, 2019 History of Present Illness Chief Complaint: L shoulder pain x 1 hour relieved by nitro CEMENT LOADER. Primary Care Provider: Rosario Winkler, DO This is a 49-year-old female who has significant past medical history of schizoaffective disorder, bipolar disorder, tobacco abuse, CAD with history of NSTEMI SARAH to LAD and D1, RLS who presents to ED secondary to left shoulder pain x1 hour that was relieved by nitro CEMENT LOADER. She states she was in the shower whenever she developed left shoulder discomfort, described as a dull ache, radiated down left bicep, similar symptoms to prior DE and was associated with significantly increased anxiety. She states she has had similar symptoms in past but they would usually just resolve on their own. Shoulder pain lasted approximately 1 hour and she opted to take 1 nitroglycerin sublingual. This resolved symptoms immediately. She denies any associated diaphoresis, palpitations, shortness breath, dizziness or nausea. She denies any kory chest pain and states, "I never had chest pain the first time." Currently she is asymptomatic. She denies any recent illness, fever, chills, sweats, lightheadedness, dizziness, shortness of breath, chest pain, nausea, abdominal pain. She denies any change in her bowel or urinary habits. She denies any lower extremity edema, orthopnea or PND. She has been compliant with her aspirin and Plavix, although she did forget her aspirin this morning. In ED she remained hemodynamically stable. Initial troponin was unremarkable will repeat troponin in 2 hours elevated to 0.093. Other lab abnormalities include hypokalemia at 3.0 and otherwise unremarkable CBC and CMP. Chest x-ray was negative for any acute cardiopulmonary normality. EKG with normal sinus rhythm without ST or T wave change. Allergies Allergy/AdvReac Type Severity Reaction Status Date / Time adhesive Allergy Mild Rash Verified 12/21/19 15:02 Penicillins Allergy Mild HIVES Verified 12/21/19 15:02 Sulfa (Sulfonamide Allergy Unknown hives Verified 12/21/19 15:02 Antibiotics) Home Medications Home Medications Medication Instructions Recorded Confirmed Type amlodipine 2.5 mg PO QAM 12/21/19 12/21/19 History aripiprazole 20 mg PO DAILY 12/21/19 12/21/19 History aspirin 81 mg PO DAILY 12/21/19 12/21/19 History atorvastatin [Lipitor] 40 mg PO DAILY 12/21/19 12/21/19 History buspirone 7.5 mg PO BID 12/21/19 12/21/19 History carbidopa-levodopa [Sinemet] 1 - 3 tab PO HS 12/21/19 12/21/19 History clopidogrel [Plavix] 75 mg PO DAILY 12/21/19 12/21/19 History cyclobenzaprine 5 mg PO TID PRN 12/21/19 12/21/19 History hydroxyzine HCl 50 mg PO TID PRN 12/21/19 12/21/19 History metoprolol succinate 25 mg PO DAILY 12/21/19 12/21/19 History nitroglycerin [Nitrostat] 0.4 mg SUBLINGUAL DIRECTED PRN 12/21/19 12/21/19 History omeprazole 20 mg PO DAILY 12/21/19 12/21/19 History prazosin 1 mg PO HS 12/21/19 12/21/19 History prazosin 2 mg PO HS 12/21/19 12/21/19 History trazodone 50 mg PO HS PRN 12/21/19 12/21/19 History Past Med/Surg History Medical History (Updated 12/21/19 @ 21:12 by Sandra Yu PA-C) Anxiety Bipolar disorder CAD (coronary artery disease) Depression History of - section (10/23/12) HTN (hypertension) Hyperlipidemia PTSD (post-traumatic stress disorder) Restless leg syndrome Tobacco abuse Surgical History (Updated 12/21/19 @ 20:38 by Sandra Yu PA-C) History of arthroscopy of right knee History of cardiac cath s/p SARAH x 2 to LAD and D1 History of delivery History of colonoscopy History of recent dental procedure Family History Father Myocardial infarction Coronary heart disease Leukemia Brother Myocardial infarction Hx of CABG Social History (Updated 12/21/19 @ 20:42 by Sandra Yu PA-C) Smoking Status: Current every day smoker packs per day: 0.5; Years Smoked: 30; Cigarettes Per Day: 10; Second Hand Exposure: No; Do You Dip or Chew Tobacco: No; Tobacco Cessation Education Requested by Patient: No Hx Alcohol Use: Yes Alcohol type: wine Alcohol Intake Frequency: 2-4 x/Month Hx Substance Use: No Preferred Language: Greenlandic Beliefs That Will Affect Care: None marital status: Current Living Situation: Spouse Other Information That Helps Us Care for You: No Feels Safe at Home: Yes Safety Concerns: Feels Safe At This Time Assistive Devices: Glasses Review of Systems Review of Systems: All systems reviewed & are unremarkable except as noted in HPI & below Physical Exam Physical Exam: Constitutional: WD/WN, vitals as above, NAD, sitting up in bed, pleasant, conversing easily Head: Normocephalic, Atraumatic Eyes: PERRL, conjunctivae normal, anicteric sclerae ENMT: external ear and nose normal, oropharynx normal, absent dentition Neck: trachea midline, no thyromegaly normal visual inspection Respiratory: normal respiratory effort, lungs clear to auscultation, no wheeze, rales, rhonchi. Normal insp/exp effort, no accessory muscle use Cardiovascular: RRR, no murmur, no edema Vessels: no JVD or carotid bruit Chest: normal inspection of chest Abdomen: normal bowel sounds, soft, nontender, no hepatosplenomegaly Musculoskeletal: no cyanosis or clubbing, extremities motor strength 5/5 Skin: no rashes, warm and dry normal turgor Neurologic: PERRL, EOMI, accommodation nl, no face palsy, no dysarthria CN's II-XI intact bilaterally and moves all extremities Psychiatric: A+Ox3, euthymic affect Lymphatic: no cervical or axillary lymphadenopathy : deferred Results & Data Results & Data ([facility]) Vital Signs (Past 12 Hours) Vital Signs Temp Pulse Pulse Resp BP BP Pulse Ox 12/21/19 19:16 63 19 120/79 97 12/21/19 17:58 72 20 154/86 H 95 12/21/19 15:08 75 17 124/72 96 12/21/19 12:57 37.2 C 74 17 107/75 95 Laboratory Results Short CBC 12/21/19 12/21/19 12/21/19 Range/Units 14:16 14:16 16:23 WBC 10.17 (4.8-10.8) K/uL Hgb 15.2 (12.0-16.0) g/dL Hct 44.9 (37-47) % Plt Count 304 (130-400) K/uL Troponin I < 0.015 0.093 H* (0-0.045) ng/ml BMP 12/21/19 14:16 Sodium 141 Potassium 3.0 L Chloride 109 H Carbon Dioxide 27 BUN 13 Creatinine 0.88 Glucose 81 Calcium 8.9 Cardiac Enzymes 12/21/19 12/21/19 Range/Units 14:16 16:23 Troponin I < 0.015 0.093 H* (0-0.045) ng/ml Liver Function 12/21/19 Range/Units 14:16 Total Bilirubin 0.3 (0.2-1) mg/dl AST 30 (15-37) U/L ALT 57 (12-78) U/L Alkaline Phosphatase 196 H (45-117) U/L Albumin 3.7 (3.4-5.0) gm/dl Diagnostic Findings XR chest 1V portable CLINICAL HISTORY: Atypical chest pain COMPARISON STUDY: 10/16/2017 FINDINGS: The cardiac and mediastinal contours are normal. There is no evidence of focal pulmonary consolidation. There is no evidence of failure. No pleural effusions are visualized.[There is a very subtle interstitial thickening, similar to the prior studies. IMPRESSION: No active disease in the chest. Medications Administered Discontinued Medications Aspirin (Aspirin Chew 324 Mg) 324 mg PO NOW STA Stop: 12/21/19 17:49 Last Admin: 12/21/19 17:58 Dose: 324 mg Documented by: [id number] Heparin Sodium (Porcine) (Heparin Sod (Porcine) 1000 Unit/Ml 10 Ml Vial) Confirm Administered Dose 10,000 units .ROUTE .STK-MED ONE Stop: 12/21/19 18:37 Last Admin: 12/21/19 18:39 Dose: 5,000 units Documented by: [id number] Cosigned by: [id number] Heparin Sodium/Dextrose (Heparin 65636 Unit/500 Ml D5w) Confirm Administered Dose 25,000 units IV .STK-MED ONE Stop: 12/21/19 18:36 Last Admin: 12/21/19 18:39 Dose: 22 units Documented by: [id number] Cosigned by: [id number] Potassium Chloride (Potassium Chloride 20 Meq Tabcr) 20 meq PO NOW STA Stop: 12/21/19 15:01 Last Admin: 12/21/19 15:07 Dose: 20 meq Documented by: [id number] ECG Rate (beats per minute): 75 Rhythm: normal sinus Code Status & VTE Plan Code Status Full Code Supervising Physician Co-Signing Physician Notes Attending Addendum: care coordinated with MONIQUE Yu please refer to her notes for full details, I agree with her notes patient seen and examined, records reviewed by myself as well on exam, patient seen resting in bed, comfortable chest pain free no dyspnea, palpitations, dizziness no other symptoms VS noted and reviewed oriented x 3, not in distress, speaks in sentences with no effort nor accessory muscle use normal rate, regular rhythm, no murmurs clear breath sounds bilaterally non distended, soft, nontender no bipedal edema, erythema, warmth no neuro deficits WBC 10.1 Hg 15.2 Crea 0.88 EKG no signs of acute ischemia, infarct ASSESSMENT AND PLAN CHEST PAIN, LIKELY NSTEMI HISTORY OF CAD, S/P STENT PLACEMENT received Nitro earlier, chest pain free on my exam trop 0.09 --> 0.33 EKG no signs of acute ischemia, infarct continue Heparin drip continue ASA, Plavix, Metoprolol, Statin HYPOKALEMIA K 3.0 PO and IV K given other diagnoses and plan of care as per MONIQUE Newell'radha notes Indra Meek MD
[2019-12-21] MEDS ORDERED: CARBIDOPA/LEVODOPA 25/100MG TAB PO PRN (20:24)
[2019-12-21] MEDS ORDERED: POTASSIUM CHLORIDE 20 MEQ TABCR PO SCH (21:00)
[2019-12-21] MEDS ORDERED: PRAZOSIN HCL 1 MG CAP PO SCH (21:00)
[2019-12-21] MEDS: POTASSIUM CHLORIDE / WTR 10 MEQ/100 ML PLCT IV SCH (21:55)
[2019-12-21] MEDS: PRAZOSIN HCL 1 MG CAP PO SCH (21:57)
[2019-12-21] MEDS: busPIRone 7.5 MG TAB PO SCH (21:58)
[2019-12-21] MEDS: CARBIDOPA/LEVODOPA 25/100MG TAB PO SCH (22:33)
[2019-12-22] MEDS: POTASSIUM CHLORIDE / WTR 10 MEQ/100 ML PLCT IV SCH (01:48)
[2019-12-22 03:14] LABS: BUN Creatinine Ratio 15.1 (10-20); Calcium 8.4 mg/dl (8.5-10.1); Creatinine Clr Calc Pharmacy 92.5 ml/min; Est GFR (African American) 113.7; Est GFR (Non-African American) 98.1; Potassium 3.7 mmol/L (3.5-5.1)
[2019-12-22 03:47] LABS: Hematocrit (blood only) 41.5 % (37-47); Mean Corpuscular Hemoglobin 33.4 pg (25-34); Mean Corpuscular Hgb Conc 33.7 g/dL (32-36); Mean Platelet Volume 11.7 fL (7.4-10.4); Platelet Count 287 K/uL (130-400); RDW Coefficient of Variation 14.1 % (11.5-14.5); RDW Standard Deviation 50.4 fL (36.4-46.3); Red Blood Count 4.19 M/uL (4.2-5.4)
[2019-12-22 04:59] LABS: Troponin I 0.372 ng/ml (0-0.045)
[2019-12-22 05:58] LABS: Estimated Average Glucose 111 mg/dl; Hemoglobin A1C 5.5 % (4.5-5.6)
[2019-12-22 06:31] LABS: Partial Thromboplastin Ratio 1.2; Partial Thromboplastin Time 34.1 Seconds (21.0-31.0)
[2019-12-22] MEDS ORDERED: HEPARIN IV BOLUS 4,500 UNITS in SYRINGE 0 ML IV ONE (07:10)
[2019-12-22] MEDS ORDERED: HEPARIN IV BOLUS 5,000 UNITS in SYRINGE 0 ML IV ONE (07:30)
[2019-12-22] MEDS: hydrOXYzine HCl 25 MG TAB PO PRN ×2 (08:26→21:18)
[2019-12-22] MEDS: ARIPiprazole 10 MG TAB PO SCH (08:26)
[2019-12-22] MEDS: PANTOprazole 40 MG TAB PO SCH (08:26)
[2019-12-22] MEDS: METOPROLOL SUCC 25MG EXT REL TAB PO SCH (08:26)
[2019-12-22] MEDS: ATORVASTATIN 40 MG TAB PO SCH (08:26)
[2019-12-22] MEDS: CLOPIDOGREL BISULFATE 75 MG TAB PO SCH (08:26)
[2019-12-22] MEDS: ASPIRIN 81 MG ECTAB PO SCH (08:27)
[2019-12-22] MEDS: amLODIPine BESYLATE 5 MG TAB PO SCH (08:27)
[2019-12-22] MEDS: busPIRone 7.5 MG TAB PO SCH ×2 (08:27→20:19)
--- NOTE | 2019-12-22 08:55 | Electrocardiogram Report ---
Test Reason : Blood Pressure : / mmHG Vent. Rate : 066 BPM Atrial Rate : 066 BPM P-R Int : 152 ms QRS Dur : 082 ms QT Int : 424 ms P-R-T Axes : 044 064 050 degrees QTc Int : 444 ms Normal sinus rhythm Normal ECG When compared with ECG of 21-DEC-2019 12:57, No significant change was found Confirmed by Niko Wray ([id number]) on 12/22/2019 8:55:55 AM Referred By: REFERRED SELF Confirmed By:Niko Wray
--- NOTE | 2019-12-22 09:00 | Electrocardiogram Report ---
Test Reason : Blood Pressure : / mmHG Vent. Rate : 065 BPM Atrial Rate : 065 BPM P-R Int : 142 ms QRS Dur : 080 ms QT Int : 418 ms P-R-T Axes : 057 075 071 degrees QTc Int : 434 ms Poor data quality, interpretation may be adversely affected Normal sinus rhythm Normal ECG When compared with ECG of 21-DEC-2019 23:56, No significant change was found Confirmed by Niko Wray ([id number]) on 12/22/2019 9:00:27 AM Referred By: REFERRED SELF Confirmed By:Niko Wray
--- NOTE | 2019-12-22 10:54 | Cardiology Consultation ---
Date of Consultation December 22, 2019 Assessment & Plan (1) NSTEMI (non-ST elevated myocardial infarction): (2) CAD (coronary artery disease): (3) HTN (hypertension): (4) Hyperlipidemia: 49-year-old female admitted with NSTEMI. Pain-free overnight. No regional wall motion abnormalities on 2D transthoracic echocardiogram. Recommend cardiac catheterization with coronary angiography. Risk, benefits, terms to procedure discussed at length. Patient agreeable. Continue aspirin, Plavix, statin, and beta-faustina therapy. Heparin will be placed on hold prior to procedure. Patient is a drug-eluting stent candidate on chronic dual antiplatelet therapy. History of Present Illness Reason for Consultation: NSTEMI Requesting Physician: Dr. Ott Attending Physician: Te Ott MD History of Present Illness 49-year-old female with history of premature coronary disease status post drug- eluting stent to the LAD and diagonal branch vessel 2017. Presented to the ER with left shoulder and chest discomfort. Describes discomfort associated with stressful situations/anxiety. Pain not relieved with sublingual nitroglycerin. IV heparin initiated in the ER. Troponin mildly trending upward thus far. Pain-free overnight. No dysrhythmias on telemetry. Denies recent exertional shortness of breath or change in function capacity. No exertional angina prior to recent event. Denies orthopnea, PND, palpitations, lightens, dizziness, syncope, or near syncope. Currently resting comfortably. Sister is present at bedside. Allergies Allergy/AdvReac Type Severity Reaction Status Date / Time adhesive Allergy Mild Rash Verified 12/21/19 15:02 Penicillins Allergy Mild HIVES Verified 12/21/19 15:02 Sulfa (Sulfonamide Allergy Unknown hives Verified 12/21/19 15:02 Antibiotics) Home Medications Home Medications Medication Instructions Recorded Confirmed Type amlodipine 2.5 mg PO QAM 12/21/19 12/21/19 History aripiprazole 20 mg PO DAILY 12/21/19 12/21/19 History aspirin 81 mg PO DAILY 12/21/19 12/21/19 History atorvastatin [Lipitor] 40 mg PO DAILY 12/21/19 12/21/19 History buspirone 7.5 mg PO BID 12/21/19 12/21/19 History carbidopa-levodopa [Sinemet] 1 - 3 tab PO HS 12/21/19 12/21/19 History clopidogrel [Plavix] 75 mg PO DAILY 12/21/19 12/21/19 History cyclobenzaprine 5 mg PO TID PRN 12/21/19 12/21/19 History hydroxyzine HCl 50 mg PO TID PRN 12/21/19 12/21/19 History metoprolol succinate 25 mg PO DAILY 12/21/19 12/21/19 History nitroglycerin [Nitrostat] 0.4 mg SUBLINGUAL DIRECTED PRN 12/21/19 12/21/19 History omeprazole 20 mg PO DAILY 12/21/19 12/21/19 History prazosin 1 mg PO HS 12/21/19 12/21/19 History prazosin 2 mg PO HS 12/21/19 12/21/19 History trazodone 50 mg PO HS PRN 12/21/19 12/21/19 History Patient History Medical History Anxiety Bipolar disorder CAD (coronary artery disease) Depression History of - section (10/23/12) HTN (hypertension) Hyperlipidemia PTSD (post-traumatic stress disorder) Restless leg syndrome Tobacco abuse Surgical History History of arthroscopy of right knee History of cardiac cath s/p SARAH x 2 to LAD and D1 History of delivery History of colonoscopy History of recent dental procedure Family History Father Myocardial infarction Coronary heart disease Leukemia Brother Myocardial infarction Hx of CABG Social History Smoking Status: Current every day smoker packs per day: 0.5; Years Smoked: 30; Cigarettes Per Day: 10; Second Hand Exposure: No; Do You Dip or Chew Tobacco: No; Tobacco Cessation Education Requested by Patient: No Hx Alcohol Use: Yes Alcohol type: wine Alcohol Intake Frequency: 2-4 x/Month Hx Substance Use: No Preferred Language: Malawian Beliefs That Will Affect Care: None marital status: Current Living Situation: Spouse Other Information That Helps Us Care for You: No Feels Safe at Home: Yes Safety Concerns: Feels Safe At This Time Assistive Devices: Glasses Review of Systems Review of Systems: All systems reviewed & are unremarkable except as noted in HPI & below Physical Exam Constitutional: well developed, well nourished and + obese Respiratory: normal respiratory effort; no respiratory distress, no labored breathing and no retractions Auscultation: no crackles, no rales, no rhonchi and no wheezes Cardiovascular: Rate/Rhythm: regular rate and regular rhythm Heart Sounds: normal S1, normal S2 and + murmur (2/6 systolic ejection murmur) Vessels: radial pulses present; no JVD Extremities: no edema Gastrointestinal (Abdomen): Inspection/Auscultation: abdomen normal to inspection and normal bowel sounds; abdomen not distended Percus sean/Palpation: abdomen soft; abdomen nontender, no guarding and abdomen not rigid Skin: no rashes, warm and dry Neurologic: CN's II-XI intact bilaterally and moves all extremities; no focal motor deficits Speech / Cognition: normal speech Psychiatric: Orientation: alert and oriented x 3 Results & Data ([facility]) Vital Signs (Past 12 Hours) Vital Signs Temp Pulse Pulse Resp BP Pulse Ox 12/22/19 08:00 68 12/22/19 07:57 36.6 C 74 20 137/84 96 12/22/19 04:23 36.8 C 61 18 111/72 98 12/21/19 23:17 36.5 C 66 18 99/64 L 93
[2019-12-22 13:49] LABS: Partial Thromboplastin Time 110.5 Seconds (21.0-31.0)
--- NOTE | 2019-12-22 14:14 | Pre Anesthesia Assessment ---
Date of Service December 22, 2019 Pre Sedation Assessment Vital Signs Temp Pulse Pulse Pulse Resp BP BP 12/23/19 07:33 37.1 C 76 16 110/71 12/23/19 03:32 36.6 C 76 16 125/77 12/23/19 00:07 36.5 C 71 16 119/81 12/22/19 22:24 88 17 125/79 12/22/19 21:24 78 18 127/84 12/22/19 20:24 70 17 130/71 12/22/19 19:28 36.6 C 63 18 114/67 12/22/19 19:15 71 12/22/19 18:24 69 18 112/74 12/22/19 17:54 66 17 108/73 12/22/19 17:24 65 18 120/56 L 12/22/19 17:10 80 17 119/80 12/22/19 16:55 68 68 18 128/79 12/22/19 16:40 36.3 C L 68 18 118/80 12/22/19 11:55 36.5 C 61 20 112/76 Pulse Ox 12/23/19 07:33 98 12/23/19 03:32 96 12/23/19 00:07 94 12/22/19 22:24 95 12/22/19 21:24 97 12/22/19 20:24 97 12/22/19 19:28 94 12/22/19 19:15 12/22/19 18:24 99 12/22/19 17:54 97 12/22/19 17:24 96 12/22/19 17:10 96 12/22/19 16:55 98 12/22/19 16:40 94 12/22/19 11:55 97 Cardiovascular RRR, no murmur, no edema Respiratory normal respiratory effort, lungs clear to auscultation Pre-Sedation Airway Assessment Smoking Status: Current every day smoker ASA: ASA4 NPO Status Date of Last Intake of Fluids: 12/21/19 Time of Last Intake of Fluids: 22:13 Date of Last Intake of Solid Food: 12/21/19 Time of Last Intake of Solid Foods: 23:56 Procedure Planning Contraindications for Sedation: none Current Medications Reviewed: Yes Notes The planned sedation has been discussed with the patient. Informed Consent was obtained. I have identified the patient, determined the appropriateness of sedation and have assessed the patient immediately prior to the procedure. All medicine(s) and interventions are by my order.
[2019-12-22] MEDS ORDERED: HEPARIN (PORCINE) 1000 UNIT/ML 10 ML (CATH LAB USE ONLY) ONE (14:23)
[2019-12-22] MEDS ORDERED: niCARdipine HCL INJ 2.5 MG/ML 10 ML AMP ONE (14:23)
[2019-12-22] MEDS ORDERED: fentaNYL citrate 100 MCG/2 ML VIAL ONE (14:24)
[2019-12-22] MEDS ORDERED: NITROGLYCERIN/D5W 100MCG/ML 20ML SYR ONE (14:24)
[2019-12-22] MEDS ORDERED: MIDAZOLAM HCL 1 MG/ML 2ML VIAL ONE ×2 (14:24→15:22)
--- NOTE | 2019-12-22 15:31 | Post Anesthesia Assessment ---
Date of Service December 22, 2019 Post Sedation Assessment Vital Signs Temp Pulse Pulse Pulse Resp BP BP 12/23/19 07:33 37.1 C 76 16 110/71 12/23/19 03:32 36.6 C 76 16 125/77 12/23/19 00:07 36.5 C 71 16 119/81 12/22/19 22:24 88 17 125/79 12/22/19 21:24 78 18 127/84 12/22/19 20:24 70 17 130/71 12/22/19 19:28 36.6 C 63 18 114/67 12/22/19 19:15 71 12/22/19 18:24 69 18 112/74 12/22/19 17:54 66 17 108/73 12/22/19 17:24 65 18 120/56 L 12/22/19 17:10 80 17 119/80 12/22/19 16:55 68 68 18 128/79 12/22/19 16:40 36.3 C L 68 18 118/80 12/22/19 11:55 36.5 C 61 20 112/76 Pulse Ox 12/23/19 07:33 98 12/23/19 03:32 96 12/23/19 00:07 94 12/22/19 22:24 95 12/22/19 21:24 97 12/22/19 20:24 97 12/22/19 19:28 94 12/22/19 19:15 12/22/19 18:24 99 12/22/19 17:54 97 12/22/19 17:24 96 12/22/19 17:10 96 12/22/19 16:55 98 12/22/19 16:40 94 12/22/19 11:55 97 Recovery Score Activity: Moves 4 extremities Respiration: Deep Breath/Cough Circulation: +/-20% PreAnes Value Consciousness: Fully Awake Oxygen Saturation: > 92% On Room Air Discharge Sedation Level of Care: Phase I Post Sedation Plan On clinical assessment, the patient appears to have tolerated the sedation without complications. Patient is recovering as anticipated. Patient will continue to be monitored by nursing and may be discharged when sedation discharge criteria are met per below protocol. Upon Completions of procedure up to 15 minutes continue every 5 minute vital signs and the P.A.R. score; then discharge to a Phase I or Fast Track to Phase II per the following guidelines: * Discharge Patient to appropriate Phase II area if PAR is 8 or greater or return to pre- procedure baseline. The post - procedure orders will be as directed. * If PAR score is less than 8 or not return to pre-procedure baseline then patient will follow Phase I monitoring till PAR is reached for Phase II. The Phase I may be done in procedure room or may call to secure a Phase I area. * If naloxone or flumazenil are used for reversal, hold in Phase I for continued monitoring from when last reversal dose was given for a minimum of 60 minutes or longer pending the nurse and/or physician discretion of patient condition before discharge to Phase II. Please call the Sedation Physician to re-evaluate and complete post-note for discharge to Phase II area. Do NOT discharge from procedure sedation or Phase 1 until post- sedation evaluation note is complete by procedure /sedation MD Sedation Discharge Instructions to be given to the patient at discharge to home.
--- NOTE | 2019-12-22 15:37 | Cardiac Catheterization ---
Cardiac Cath Procedure Full Procedure Date December 22, 2019 Pre-Procedure Diagnosis Pre-Procedure Diagnosis: Non STEMI and CAD AUC Score AUC Score: 8 Post-Procedure Diagnosis Post-Procedure Diagnosis: Severe CAD Procedure(s) Performed Procedure(s) Performed: Coronary Angiography and Left Heart Cath [employer] Erasmo Lara DO Estimated Blood Loss Estimated Blood Loss: 10cc Medication(s) Medication(s): Fentanyl, Heparin, Lidocaine 1%, Nicardipine, Nitroglycerin and Versed Summary of Findings 80% mid OM1 (culprit) 30% ostial D1 instent restenosis Patent proximal LAD stent. Hemodynamics Rest Ao:: 137/85/111 Final Ao: 145/74/102 LV: 141/2/18 Recommendations Recommendations: PCI without planned CABG Specimens Specimens: None Radiation Exposure (mGy) 1726 Contrast (mls) 60 Fluids (cc crystalloids) Fluids (cc crystalloids): 50 Nss Drains Drains: N/a Anesthesia Moderate sedation. Start 1440. End 1524. Sedation monitor: Showers RN Procedural Complication(s) None Disposition Patient remained in [employer] for PCI of the OM I attest to the content of the Intraoperative Record and any orders documented therein. Any exceptions are noted below. ACC Data: [employer] Cardiac Status Clinical evaluation leading to the procedure CAD Presenation: Non STEMI Anginal Classification: CCS IV Heart Failure: No Coronary Anatomy Dominant: Right Left Main (% Stenosis): Normal LAD (% Stenosis): Mid (30% distal to stent) and Distal (10%) D1 (% Stenosis): Ostial (30%) and Proximal (patent stent) Circumflex (% Stenosis): Proximal (70% distal to OM1 ), Mid (10%) and Distal (10%) OM1 (% Stenosis): Proximal (30-40% diffuse) and Mid (80%) RCA (% Stenosis): Proximal (20% diffuse), Mid (20-30% diffuse) and Distal (10%) R PDA (% Stenosis): Proximal (50-60%) R PL1 (% Stenosis): Mid (10%) Diagnostic Physicians Name: Erasmo Lara DO Status: Urgent Closure Device Percutaneous Entry Location: Radial Closure Device: Radial Band Recommendations: PCI without planned CABG Intraprocedure Events Significant Disection: No Perforation: No
[2019-12-22] MEDS ORDERED: CLOPIDOGREL BISULFATE 300 MG TAB ONE (16:05)
--- NOTE | 2019-12-22 16:26 | Post Anesthesia Assessment ---
Date of Service December 22, 2019 Post Sedation Assessment Vital Signs Temp Pulse Pulse Pulse Resp BP Pulse Ox 12/22/19 11:55 97.7 F 61 20 112/76 97 12/22/19 08:00 68 12/22/19 07:57 97.9 F 74 20 137/84 96 12/22/19 04:23 98.2 F 61 18 111/72 98 12/21/19 23:17 97.7 F 66 18 99/64 L 93 12/21/19 21:00 68 12/21/19 20:18 97.5 F L 68 68 18 132/89 95 12/21/19 19:16 63 19 120/79 97 12/21/19 17:58 72 20 154/86 H 95 Pulse Ox 12/22/19 11:55 12/22/19 08:00 12/22/19 07:57 12/22/19 04:23 12/21/19 23:17 12/21/19 21:00 12/21/19 20:18 95 12/21/19 19:16 12/21/19 17:58 Recovery Score Activity: Moves 4 extremities Respiration: Deep Breath/Cough Circulation: +/-20% PreAnes Value Consciousness: Fully Awake Oxygen Saturation: > 92% On Room Air Discharge Sedation Level of Care: Fast Track Phase II Post Sedation Plan On clinical assessment, the patient appears to have tolerated the sedation with out complications. Patient is recovering as anticipated. Patient will continue to be monitored by nursing and may be discharged when sedation discharge criteria are met per below protocol. Upon Completions of procedure up to 15 minutes continue every 5 minute vital signs and the P.A.R. score; then discharge to a Phase I or Fast Track to Phase II per the following guidelines: * Discharge Patient to appropriate Phase II area if PAR is 8 or greater or return to pre- procedure baseline. The post - procedure orders will be as directed. * If PAR score is less than 8 or not return to pre-procedure baseline then patient will follow Phase I monitoring till PAR is reached for Phase II. The Phase I may be done in procedure room or may call to secure a Phase I area. * If naloxone or flumazenil are used for reversal, hold in Phase I for continued monitoring from when last reversal dose was given for a minimum of 60 minutes or longer pending the nurse and/or physician discretion of patient condition before discharge to Phase II. Please call the Sedation Physician to re-evaluate and complete post-note for discharge to Phase II area. Do NOT discharge from procedure sedation or Phase 1 until post- sedation evaluation note is complete by procedure /sedation MD Sedation Discharge Instructions to be given to the patient at discharge to home.
--- NOTE | 2019-12-22 16:38 | Cardiac Catheterization ---
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 Cardiac Status Clinical evaluation leading to the procedure CAD Presenation: Non STEMI Anginal Classification: CCS IV Heart Failure: No Cardiogenic Shock within 24 Hours: No Cardiac Arrest within 24 Hours: No Imaging Studies Past 6 Months: Yes Stress Studies Past 6 Months: No Diagnostic Physicians Name: Kimani Whelan MD Status: Elective Closure Device Percutaneous Entry Location: Radial Closure Device: Radial Band Recommendations: PCI without planned CABG Lesion Segment Name: mid OM1 Culprit Artery: Yes Stenosis Prior to Rx (%): 80 Chronic Total Occlusion: No IVUS: No FFR: No Pre-Procedure DUNIA Flow: 3 Previously Treated Lesion: No Lesion Complexity: Non-High/Non-C Lesion Length (mm): 12 Thrombus Present: Yes Bifurcation Lesion: No Guidewire Across Lesion: Stenosis Post-Procedure (%): 0 Post-Procedure DUNIA Flow: 3 Devices(s) Deployed: Yes Yes Intraprocedure Events Significant Disection: No Perforation: No Cardiac Cath Procedure Full Procedure Date December 22, 2019 Pre-Procedure Diagnosis Pre-Procedure Diagnosis: Non STEMI and CAD AUC Score AUC Score: 8 Post-Procedure Diagnosis Post-Procedure Diagnosis: Severe CAD and Successful PCI Procedure(s) Performed Procedure(s) Performed: Coronary Angiography and Drug Eluting Stent Industrial Laborer Kimani Whelan MD Estimated Blood Loss Estimated Blood Loss: 10cc Medication(s) Medication(s): Fentanyl, Heparin, Lidocaine 1%, Nicardipine, Nitroglycerin and Versed Summary of Findings Indication: NSTEMI. History of coronary artery disease post prior PCI with SARAH to LAD, diagonal 09/2017 Access: 6 Fr right radial artery Catheters: EBU 3.5 guide Findings: For full details of patient's coronary angiography please see cath report dictated by Dr. Lara. Briefly, patient found to have severe single vessel disease involving mid to distal OM. Decision to proceed with PCI. -- PCI -- Antithrombotic therapy: Heparin, clopidogrel Procedure: Left main cannulated with EBU 3.5 guide Automation And Control Engineer 50 wire passed across lesion into distal vessel Mid OM1 lesion predilated with 2.5 compliant balloon Dilated lesion stented with 2.5 x 15 mm Rafal drug-eluting stent Stent post-dilated with 2.5 noncompliant balloon IC vasodilators administered for spasm Post procedure DUNIA 3 flow, stent well expanded with minimal residual stenosis and no apparent cardiac complications. Arterial Closure: TR band Summary: 1. Successful PCI of mid OM1 with single drug-eluting stent (2.5 x 15 mm Rafal SARAH). Recommendations: To PCU for continued monitoring Reloaded with clopidogrel 300 mg Continue dual-antiplatelet therapy for at least 1 year, likely extended in the setting of multiple prior stents Continue statin, and ASCVD risk factor modification Consult cardiac Rehab Hemodynamics Rest Ao:: 143/72/96 Final Ao: 135/57/117 LV: -- Recommendations Recommendations: PCI without planned CABG Specimens Specimens: None Radiation Exposure (mGy) 2840 Contrast (mls) 120 Fluids (cc crystalloids) Fluids (cc crystalloids): 250 Drains Drains: N/a Anesthesia Moderate sedation. Procedural Complication(s) None Disposition PCU I attest to the content of the Intraoperative Record and any orders documented therein. Any exceptions are noted below. [facility] Card Cath Procedure Codes Moderate Sedation Procedure 1: Sedation/Anesthesia: 33351 Mod Sedation by the same physician; Ea [id number] Minutes Stenting Procedure 1: Cardiovascular Stent Procedures: 34682 Perc transcatheter placement of intracoronary stent(s), with ang PG Care Time/CCT Total # of Minutes Spent Total Time Spent with Patient: Total time spent is greater than 50% in coordination of care (as documented) at patient's floor/unit and/or counseling patient:
[2019-12-22] MEDS ORDERED: SODIUM CHLORIDE 0.9% 1000ML 1,000 ML IV SCH (16:45)
[2019-12-22] MEDS: CARBIDOPA/LEVODOPA 25/100MG TAB PO SCH (20:19)
[2019-12-22] MEDS: PRAZOSIN HCL 1 MG CAP PO SCH (20:19)
--- NOTE | 2019-12-22 21:05 | Hospitalist Progress Note ---
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 In ED she remained hemodynamically stable. Initial troponin was unremarkable will repeat troponin in 2 hours elevated to 0.093. Other lab abnormalities include hypokalemia at 3.0 and otherwise unremarkable CBC and CMP. Chest x-ray was negative for any acute cardiopulmonary normality. EKG with normal sinus rhythm without ST or T wave change. Repeat trop @ 2014 increased from 0.093 to 0.336 and continues to remain CP free. admitted to PCU continued IV heparin gtt on admission Cardiology consulted - discussed with Dr. Lala Echocardiogram obtained (12/22/19) -shows EF of 55 to 60%. LV wall motion is normal. Mild tricuspid regurg. Estimated systolic pulmonary arterial pressure is 42. Trivial loculated apical right lateral pericardial effusion, no indication of tamponade. Lipid panel obtained, total cholesterol 175, triglycerides 229, LDL 98, HDL 31, Hgb a1c 5.5% continue ASA, plavix, statin and metoprolol Cardiology was consulted, recommended cardiac cath. Patient was taking for cardiac catheterization later today 12/21, now status post SARAH placement to mid OM1 Further recommendations: PCU for continued monitoring Reloaded with clopidogrel 300 mg Continue dual-antiplatelet therapy for at least 1 year, likely extended in the setting of multiple prior stents Continue statin, and ASCVD risk factor modification Consult cardiac Rehab (3) Hypokalemia: K 3.0, received 20 M EQ KCl p.o. in ED K rider 10 mEq x 2 Give 40 M EQ oral KCl at bedtime Replace and monitor (4) HTN (hypertension): Blood pressure stable Continue metoprolol and amlodipine (5) Hyperlipidemia: continue statin (6) Bipolar disorder: continue aripriprazole, buspar, prazosin mood stable (7) Anxiety: prn hydroxyzine pt takes mostly at HS but can take up to TID mood stable (8) Tobacco abuse: encourage smoking cessation (9) Restless leg syndrome: continue sinemet (takes up to 3 tabs at HS per pt) (10) DVT prophylaxis: IV Heparin on admission -> cardiac cath Disposition: PCU Follow up: PCP Dr. Winkler upon discharge Admission and Anticipated Discharge Date Admission Date: December 21, 2019 Subjective Patient is lying in bed in no acute distress. She just underwent cardiac catheterization and SARAH placement. Currently denies any fevers, chills, dizziness, lightheadedness, chest pain, palpitations, shortness of breath. Patient's sister is present at the bedside. Review of Systems Review of Systems: All systems reviewed & are unremarkable except as noted in HPI & below Constitutional: no fever and no chills Respiratory: no cough and no dyspnea Cardiovascular: no chest pain and no palpitations Gastrointestinal: no abdominal pain, no nausea and no vomiting Physical Exam Physical Exam: Constitutional: Middle-aged female, laying in bed, WD/WN, vitals as above, in NAD Head: Normocephalic, Atraumatic Eyes: PERRL, EOMI, conjunctivae normal, anicteric sclerae ENMT: external ear and nose normal, oropharynx normal, absent dentition Neck: trachea midline, no thyromegaly normal visual inspection Respiratory: normal respiratory effort, lungs clear to auscultation, no wheeze, rales, rhonchi. Normal insp/exp effort, no accessory muscle use Cardiovascular: RRR, no murmur, no edema Vessels: no JVD or carotid bruit Chest: normal inspection of chest Abdomen: normal bowel sounds, soft, nontender, nondistended Musculoskeletal: no cyanosis or clubbing, extremities motor strength 5/5 Skin: no rashes, warm and dry normal turgor Neurologic: PERRL, EOMI, no face palsy, no dysarthria CN's II-XI intact bilaterally and moves all extremities Psychiatric: A+Ox3, euthymic affect Results & Data Results & Data ([facility]) Vital Signs (Past 12 Hours) Vital Signs Temp Pulse Pulse Pulse Resp BP BP 12/22/19 19:28 36.6 C 63 18 114/67 12/22/19 19:15 71 12/22/19 18:24 69 18 112/74 12/22/19 17:54 66 17 108/73 12/22/19 17:24 65 18 120/56 L 12/22/19 17:10 80 17 119/80 12/22/19 16:55 68 68 18 128/79 12/22/19 16:40 36.3 C L 68 18 118/80 12/22/19 11:55 36.5 C 61 20 112/76 Pulse Ox 12/22/19 19:28 94 12/22/19 19:15 12/22/19 18:24 99 12/22/19 17:54 97 12/22/19 17:24 96 12/22/19 17:10 96 12/22/19 16:55 98 12/22/19 16:40 94 12/22/19 11:55 97 Laboratory Results 12/22/19 12/22/19 12/22/19 Range/Units 16:07 15:37 13:14 WBC (4.8-10.8) K/uL RBC (4.2-5.4) M/uL Hgb (12.0-16.0) g/dL Hct (37-47) % MCV (80-100) fL MCH (25-34) pg MCHC (32-36) g/dL RDW Std Deviation (36.4-46.3) fL RDW Coeff of Luis Antonio (11.5-14.5) % Plt Count (130-400) K/uL MPV (7.4-10.4) fL APTT 110.5 H* (21.0-31.0) Seconds PTT Ratio 4.0 Activ Coag Time Kaolin 263 H 169 H (94-140) SECONDS Sodium (136-145) mmol/L Potassium (3.5-5.1) mmol/L Chloride (98-107) mmol/L Carbon Dioxide (21-32) mmol/L Anion Gap (3-11) BUN (7-18) mg/dl Creatinine (0.6-1.2) mg/dl Est Cr Clr Drug Dosing ml/min Est GFR ( Amer) Est GFR (Non-Af Amer) BUN/Creatinine Ratio (10-20) Glucose (70-99) mg/dl Estimat Average Glucose mg/dl Hemoglobin A1c (4.5-5.6) % Calcium (8.5-10.1) mg/dl Troponin I (0-0.045) ng/ml Triglycerides (0-150) mg/dl Cholesterol (0-200) mg/dl LDL Cholesterol, Calc mg/dl VLDL Cholesterol, Calc mg/dl HDL Cholesterol mg/dl Cholesterol/HDL Ratio 12/22/19 12/22/19 12/22/19 Range/Units 06:05 02:20 02:20 WBC (4.8-10.8) K/uL RBC (4.2-5.4) M/uL Hgb (12.0-16.0) g/dL Hct (37-47) % MCV (80-100) fL MCH (25-34) pg MCHC (32-36) g/dL RDW Std Deviation (36.4-46.3) fL RDW Coeff of Luis Antonio (11.5-14.5) % Plt Count (130-400) K/uL MPV (7.4-10.4) fL APTT 34.1 H (21.0-31.0) Seconds PTT Ratio 1.2 Activ Coag Time Kaolin (94-140) SECONDS Sodium 143 (136-145) mmol/L Potassium 3.7 D (3.5-5.1) mmol/L Chloride 111 H (98-107) mmol/L Carbon Dioxide 27 (21-32) mmol/L Anion Gap 5.0 (3-11) BUN 11 (7-18) mg/dl Creatinine 0.73 (0.6-1.2) mg/dl Est Cr Clr Drug Dosing 92.5 ml/min Est GFR ( Amer) 113.7 Est GFR (Non-Af Amer) 98.1 BUN/Creatinine Ratio 15.1 (10-20) Glucose 84 (70-99) mg/dl Estimat Average Glucose 111 mg/dl Hemoglobin A1c 5.5 (4.5-5.6) % Calcium 8.4 L (8.5-10.1) mg/dl Troponin I 0.372 H* (0-0.045) ng/ml Triglycerides 229 H (0-150) mg/dl Cholesterol 175 (0-200) mg/dl LDL Cholesterol, Calc 98 mg/dl VLDL Cholesterol, Calc 46 mg/dl HDL Cholesterol 31 mg/dl Cholesterol/HDL Ratio 6 12/22/19 Range/Units 02:20 WBC 8.20 (4.8-10.8) K/uL RBC 4.19 L (4.2-5.4) M/uL Hgb 14.0 (12.0-16.0) g/dL Hct 41.5 (37-47) % MCV 99.0 (80-100) fL MCH 33.4 (25-34) pg MCHC 33.7 (32-36) g/dL RDW Std Deviation 50.4 H (36.4-46.3) fL RDW Coeff of Luis Antonio 14.1 (11.5-14.5) % Plt Count 287 (130-400) K/uL MPV 11.7 H (7.4-10.4) fL APTT (21.0-31.0) Seconds PTT Ratio Activ Coag Time Kaolin (94-140) SECONDS Sodium (136-145) mmol/L Potassium (3.5-5.1) mmol/L Chloride (98-107) mmol/L Carbon Dioxide (21-32) mmol/L Anion Gap (3-11) BUN (7-18) mg/dl Creatinine (0.6-1.2) mg/dl Est Cr Clr Drug Dosing ml/min Est GFR ( Amer) Est GFR (Non-Af Amer) BUN/Creatinine Ratio (10-20) Glucose (70-99) mg/dl Estimat Average Glucose mg/dl Hemoglobin A1c (4.5-5.6) % Calcium (8.5-10.1) mg/dl Troponin I (0-0.045) ng/ml Triglycerides (0-150) mg/dl Cholesterol (0-200) mg/dl LDL Cholesterol, Calc mg/dl VLDL Cholesterol, Calc mg/dl HDL Cholesterol mg/dl Cholesterol/HDL Ratio Medications Administered Current Inpatient Medications Acetaminophen (Acetaminophen 325 Mg Tab) 650 mg PO Q4H PRN PRN Reason: Pain or Fever Stop: 01/20/20 20:17 Al Hydrox/Mg Hydrox/Simethicone (Aluminum/Magnesium Susp 30 Ml Udc) 15 ml PO Q4H PRN PRN Reason: Dyspepsia Stop: 01/20/20 20:17 Amlodipine Besylate (Amlodipine Besylate 5 Mg Tab) 2.5 mg PO QAM [facility] Stop: 01/21/20 08:59 Last Admin: 12/22/19 08:27 Dose: 2.5 mg Documented by: Aripiprazole (Aripiprazole 10 Mg Tab) 20 mg PO DAILY [facility] Stop: 01/21/20 08:59 Last Admin: 12/22/19 08:26 Dose: 20 mg Documented by: Aspirin (Aspirin 81 Mg Ectab) 81 mg PO DAILY [facility] Stop: 01/21/20 08:59 Last Admin: 12/22/19 08:27 Dose: 81 mg Documented by: Atorvastatin Calcium (Atorvastatin 40 Mg Tab) 40 mg PO DAILY [facility] Stop: 01/21/20 08:59 Last Admin: 12/22/19 08:26 Dose: 40 mg Documented by: Buspirone HCl (Buspirone 7.5 Mg Tab) 7.5 mg PO BID [facility] Stop: 01/20/20 20:59 Last Admin: 12/22/19 20:19 Dose: 7.5 mg Documented by: Carbidopa/Levodopa (Carbidopa/Levodopa 25/100mg Tab) 1 tab PO HS [facility] Stop: 01/20/20 20:59 Last Admin: 12/22/19 20:19 Dose: 1 tab Documented by: Carbidopa/Levodopa (Carbidopa/Levodopa 25/100mg Tab) 1 tab PO PRN PRN PRN Reason: RLS Stop: 01/20/20 20:23 Clopidogrel Bisulfate (Clopidogrel Bisulfate 75 Mg Tab) 75 mg PO DAILY [facility] Stop: 01/21/20 08:59 Last Admin: 12/22/19 08:26 Dose: 75 mg Documented by: Hydroxyzine HCl (Hydroxyzine Hcl 25 Mg Tab) 50 mg PO TID PRN PRN Reason: Anxiety Stop: 01/20/20 20:17 Last Admin: 12/22/19 08:26 Dose: 50 mg Documented by: Heparin Sodium/Dextrose (Heparin Sodium/Dextrose) 25,000 units in 500 mls @ 0 mls/hr IV .Q0M [facility]; Protocol Stop: 01/20/20 18:29 Last Titration: 12/22/19 17:23 Dose: Infused Documented by: Sodium Chloride (Nss 1000ml) 1,000 mls @ 100 mls/hr IV .Q10H [facility] Stop: 12/23/19 00:14 Last Admin: 12/22/19 17:00 Dose: 100 mls/hr Documented by: Magnesium Hydroxide (Magnesium Hydroxide Susp 30 Ml Udc) 30 ml PO Q12H PRN PRN Reason: Constipation Stop: 01/20/20 20:17 Metoprolol Succinate (Metoprolol Succ 25mg Ext Rel Tab) 25 mg PO DAILY [facility] Stop: 01/21/20 08:59 Last Admin: 12/22/19 08:26 Dose: 25 mg Documented by: Nitroglycerin (Nitroglycerin Sl 0.4 Mg/Tab Tab) 0.4 mg SL PRN PRN PRN Reason: Chest Pain Stop: 01/20/20 20:17 Ondansetron HCl (Ondansetron Inj 2 Mg/Ml 2 Ml Vial) 4 mg IV Q6H PRN PRN Reason: Nausea Stop: 01/20/20 20:17 Pantoprazole Sodium (Pantoprazole 40 Mg Tab) 40 mg PO DAILY [facility] Stop: 01/21/20 08:59 Last Admin: 12/22/19 08:26 Dose: 40 mg Documented by: Polyethylene Glycol (Polyethylene (Miralax) 17 Gm Pack) 17 gm PO DAILY PRN PRN Reason: Constipation Stop: 01/20/20 20:17 Prazosin HCl (Prazosin Hcl 1 Mg Cap) 3 mg PO HS [facility] Stop: 01/20/20 20:59 Last Admin: 12/22/19 20:19 Dose: 3 mg Documented by: Trazodone HCl (Trazodone Hcl 50 Mg Tab) 50 mg PO HS PRN PRN Reason: Sleep Stop: 01/20/20 20:17 Last Admin: 12/21/19 21:55 Dose: 50 mg Documented by:
[2019-12-23] MEDS: amLODIPine BESYLATE 5 MG TAB PO SCH (07:35)
[2019-12-23] MEDS: ATORVASTATIN 40 MG TAB PO SCH (07:35)
[2019-12-23] MEDS: ARIPiprazole 10 MG TAB PO SCH (07:35)
[2019-12-23] MEDS: METOPROLOL SUCC 25MG EXT REL TAB PO SCH (07:35)
[2019-12-23] MEDS: ASPIRIN 81 MG ECTAB PO SCH (07:36)
[2019-12-23] MEDS: CLOPIDOGREL BISULFATE 75 MG TAB PO SCH (07:36)
[2019-12-23] MEDS: PANTOprazole 40 MG TAB PO SCH (07:36)
[2019-12-23] MEDS: busPIRone 7.5 MG TAB PO SCH (07:36)
--- NOTE | 2019-12-23 08:00 | Hospitalist Progress Note ---
Date of Service December 23, 2019 Assessment & Plan (1) NSTEMI (non-ST elevated myocardial infarction): (2) CAD (coronary artery disease): This is a 49-year-old female who has significant past medical history of schizoaffective disorder, bipolar disorder, tobacco abuse, CAD with history of NSTEMI SARAH to LAD and D1, RLS who presents to ED secondary to left shoulder pain x1 hour that was relieved by nitro [employer]. In ED she remained hemodynamically stable. Initial troponin was unremarkable will repeat troponin in 2 hours elevated to 0.093. Other lab abnormalities include hypokalemia at 3.0 and otherwise unremarkable CBC and CMP. Chest x-ray was negative for any acute cardiopulmonary normality. EKG with normal sinus rhythm without ST or T wave change. Repeat trop @ 2014 increased from 0.093 to 0.336 and continues to remain CP free. admitted to PCU continued IV heparin gtt on admission Cardiology consulted - discussed with Dr. Lala Echocardiogram obtained (12/22/19) -shows EF of 55 to 60%. LV wall motion is normal. Mild tricuspid regurg. Estimated systolic pulmonary arterial pressure is 42. Trivial loculated apical right lateral pericardial effusion, no indication of tamponade. Lipid panel obtained, total cholesterol 175, triglycerides 229, LDL 98, HDL 31, Hgb a1c 5.5% continued ASA, plavix, statin and metoprolol Cardiology was consulted, recommended cardiac cath. Patient was taking for cardiac catheterization later today 12/21, now status post SARAH placement to mid OM1 Further recommendations: PCU for continued monitoring Reloaded with clopidogrel 300 mg Continue dual-antiplatelet therapy for at least 1 year, likely extended in the setting of multiple prior stents Continue statin, and ASCVD risk factor modification -increase atorvastatin to 80 mg daily Consult cardiac Rehab Follow-up with cardiology in 1 to 2 weeks (3) Hypokalemia: K 3.0 Replace and monitor (4) HTN (hypertension): Blood pressure stable Continue metoprolol and amlodipine (5) Hyperlipidemia: continue statin (6) Bipolar disorder: continue aripriprazole, buspar, prazosin mood stable (7) Anxiety: prn hydroxyzine pt takes mostly at HS but can take up to TID mood stable (8) Tobacco abuse: encourage smoking cessation (9) Restless leg syndrome: continue sinemet (takes up to 3 tabs at HS per pt) (10) DVT prophylaxis: IV Heparin on admission -> cardiac cath Disposition: PCU Follow up: PCP Dr. Winkler upon discharge Follow up with cardiology in 1 to 2 weeks Admission and Anticipated Discharge Date Admission Date: December 21, 2019 Subjective Patient is currently in bed, in no acute distress, denies any fevers, chills, palpitations, chest pain, shortness of breath. Also denies any dizziness or lightheadedness. No dysrhythmia on telemetry. Patient's sister at the bedside. Patient is inquiring about going home. Review of Systems Review of Systems: All systems reviewed & are unremarkable except as noted in HPI & below Constitutional: no fever and no chills Respiratory: no cough and no dyspnea Cardiovascular: no chest pain and no palpitations Gastrointestinal: no abdominal pain, no nausea and no vomiting Physical Exam Physical Exam: Constitutional: Middle-aged female, laying in bed, WD/WN, vitals as above, in NAD Head: Normocephalic, Atraumatic Eyes: PERRL, EOMI, conjunctivae normal, anicteric sclerae ENMT: external ear and nose normal, oropharynx normal, absent dentition Neck: trachea midline, no thyromegaly normal visual inspection Respiratory: normal respiratory effort, lungs clear to auscultation, no wheeze, rales, rhonchi. Normal insp/exp effort, no accessory muscle use Cardiovascular: RRR, no murmur, no edema Vessels: no JVD or carotid bruit Chest: normal inspection of chest Abdomen: normal bowel sounds, soft, nontender, nondistended Musculoskeletal: no cyanosis or clubbing, extremities motor strength 5/5 Skin: no rashes, warm and dry normal turgor Neurologic: PERRL, EOMI, no face palsy, no dysarthria CN's II-XI intact bilaterally and moves all extremities Psychiatric: A+Ox3, euthymic affect Results & Data Results & Data ([facility]) Vital Signs (Past 12 Hours) Vital Signs Temp Pulse Resp BP Pulse Ox 12/23/19 07:33 37.1 C 76 16 110/71 98 12/23/19 03:32 36.6 C 76 16 125/77 96 12/23/19 00:07 36.5 C 71 16 119/81 94 12/22/19 22:24 88 17 125/79 95 12/22/19 21:24 78 18 127/84 97 12/22/19 20:24 70 17 130/71 97 Laboratory Results 12/23/19 12/23/19 12/22/19 Range/Units 08:11 08:11 16:07 WBC 7.16 (4.8-10.8) K/uL RBC 4.06 L (4.2-5.4) M/uL Hgb 13.8 (12.0-16.0) g/dL Hct 40.1 (37-47) % MCV 98.8 (80-100) fL MCH 34.0 (25-34) pg MCHC 34.4 (32-36) g/dL RDW Std Deviation 49.5 H (36.4-46.3) fL RDW Coeff of Luis Antonio 13.8 (11.5-14.5) % Plt Count 266 (130-400) K/uL MPV 11.5 H (7.4-10.4) fL APTT (21.0-31.0) Seconds PTT Ratio Activ Coag Time Kaolin 263 H (94-140) SECONDS Sodium 142 (136-145) mmol/L Potassium 3.5 (3.5-5.1) mmol/L Chloride 112 H (98-107) mmol/L Carbon Dioxide 24 (21-32) mmol/L Anion Gap 6.0 (3-11) BUN 12 (7-18) mg/dl Creatinine 0.88 (0.6-1.2) mg/dl Est Cr Clr Drug Dosing 77.7 ml/min Est GFR ( Amer) 90.7 Est GFR (Non-Af Amer) 78.2 BUN/Creatinine Ratio 13.6 (10-20) Glucose 104 H (70-99) mg/dl Calcium 8.4 L (8.5-10.1) mg/dl Magnesium 2.0 (1.8-2.4) mg/dl 12/22/19 12/22/19 Range/Units 15:37 13:14 WBC (4.8-10.8) K/uL RBC (4.2-5.4) M/uL Hgb (12.0-16.0) g/dL Hct (37-47) % MCV (80-100) fL MCH (25-34) pg MCHC (32-36) g/dL RDW Std Deviation (36.4-46.3) fL RDW Coeff of Luis Antonio (11.5-14.5) % Plt Count (130-400) K/uL MPV (7.4-10.4) fL APTT 110.5 H* (21.0-31.0) Seconds PTT Ratio 4.0 Activ Coag Time Kaolin 169 H (94-140) SECONDS Sodium (136-145) mmol/L Potassium (3.5-5.1) mmol/L Chloride (98-107) mmol/L Carbon Dioxide (21-32) mmol/L Anion Gap (3-11) BUN (7-18) mg/dl Creatinine (0.6-1.2) mg/dl Est Cr Clr Drug Dosing ml/min Est GFR ( Amer) Est GFR (Non-Af Amer) BUN/Creatinine Ratio (10-20) Glucose (70-99) mg/dl Calcium (8.5-10.1) mg/dl Magnesium (1.8-2.4) mg/dl Medications Administered Current Inpatient Medications Acetaminophen (Acetaminophen 325 Mg Tab) 650 mg PO Q4H PRN PRN Reason: Pain or Fever Stop: 01/20/20 20:17 Al Hydrox/Mg Hydrox/Simethicone (Aluminum/Magnesium Susp 30 Ml Udc) 15 ml PO Q4H PRN PRN Reason: Dyspepsia Stop: 01/20/20 20:17 Amlodipine Besylate (Amlodipine Besylate 5 Mg Tab) 2.5 mg PO QAM [facility] Stop: 01/21/20 08:59 Last Admin: 12/23/19 07:35 Dose: 2.5 mg Documented by: Aripiprazole (Aripiprazole 10 Mg Tab) 20 mg PO DAILY [facility] Stop: 01/21/20 08:59 Last Admin: 12/23/19 07:35 Dose: 20 mg Documented by: Aspirin (Aspirin 81 Mg Ectab) 81 mg PO DAILY [facility] Stop: 01/21/20 08:59 Last Admin: 12/23/19 07:36 Dose: 81 mg Documented by: Atorvastatin Calcium (Atorvastatin 40 Mg Tab) 40 mg PO DAILY [facility] Stop: 01/21/20 08:59 Last Admin: 12/23/19 07:35 Dose: 40 mg Documented by: Buspirone HCl (Buspirone 7.5 Mg Tab) 7.5 mg PO BID [facility] Stop: 01/20/20 20:59 Last Admin: 12/23/19 07:36 Dose: 7.5 mg Documented by: Carbidopa/Levodopa (Carbidopa/Levodopa 25/100mg Tab) 1 tab PO HS [facility] Stop: 01/20/20 20:59 Last Admin: 12/22/19 20:19 Dose: 1 tab Documented by: Carbidopa/Levodopa (Carbidopa/Levodopa 25/100mg Tab) 1 tab PO PRN PRN PRN Reason: RLS Stop: 01/20/20 20:23 Clopidogrel Bisulfate (Clopidogrel Bisulfate 75 Mg Tab) 75 mg PO DAILY [facility] Stop: 01/21/20 08:59 Last Admin: 12/23/19 07:36 Dose: 75 mg Documented by: Hydroxyzine HCl (Hydroxyzine Hcl 25 Mg Tab) 50 mg PO TID PRN PRN Reason: Anxiety Stop: 01/20/20 20:17 Last Admin: 12/22/19 21:18 Dose: 50 mg Documented by: Heparin Sodium/Dextrose (Heparin Sodium/Dextrose) 25,000 units in 500 mls @ 0 mls/hr IV .Q0M [facility]; Protocol Stop: 01/20/20 18:29 Last Titration: 12/22/19 17:23 Dose: Infused Documented by: Magnesium Hydroxide (Magnesium Hydroxide Susp 30 Ml Udc) 30 ml PO Q12H PRN PRN Reason: Constipation Stop: 01/20/20 20:17 Metoprolol Succinate (Metoprolol Succ 25mg Ext Rel Tab) 25 mg PO DAILY [facility] Stop: 01/21/20 08:59 Last Admin: 12/23/19 07:35 Dose: 25 mg Documented by: Nitroglycerin (Nitroglycerin Sl 0.4 Mg/Tab Tab) 0.4 mg SL PRN PRN PRN Reason: Chest Pain Stop: 01/20/20 20:17 Ondansetron HCl (Ondansetron Inj 2 Mg/Ml 2 Ml Vial) 4 mg IV Q6H PRN PRN Reason: Nausea Stop: 01/20/20 20:17 Pantoprazole Sodium (Pantoprazole 40 Mg Tab) 40 mg PO DAILY [facility] Stop: 01/21/20 08:59 Last Admin: 12/23/19 07:36 Dose: 40 mg Documented by: Polyethylene Glycol (Polyethylene (Miralax) 17 Gm Pack) 17 gm PO DAILY PRN PRN Reason: Constipation Stop: 01/20/20 20:17 Prazosin HCl (Prazosin Hcl 1 Mg Cap) 3 mg PO HS [facility] Stop: 01/20/20 20:59 Last Admin: 12/22/19 20:19 Dose: 3 mg Documented by: Trazodone HCl (Trazodone Hcl 50 Mg Tab) 50 mg PO HS PRN PRN Reason: Sleep Stop: 01/20/20 20:17 Last Admin: 12/21/19 21:55 Dose: 50 mg Documented by:
--- NOTE | 2019-12-23 08:28 | Electrocardiogram Report ---
Test Reason : Blood Pressure : / mmHG Vent. Rate : 052 BPM Atrial Rate : 052 BPM P-R Int : 150 ms QRS Dur : 084 ms QT Int : 446 ms P-R-T Axes : 045 066 076 degrees QTc Int : 414 ms Sinus bradycardia Otherwise normal ECG When compared with ECG of 22-DEC-2019 07:39, No significant change was found Confirmed by Niko Wray ([id number]) on 12/23/2019 8:28:19 AM Referred By: REFERRED SELF Confirmed By:Niko Wray
--- NOTE | 2019-12-23 08:48 | Electrocardiogram Report ---
Test Reason : Blood Pressure : / mmHG Vent. Rate : 069 BPM Atrial Rate : 072 BPM P-R Int : 146 ms QRS Dur : 082 ms QT Int : 420 ms P-R-T Axes : 052 075 064 degrees QTc Int : 450 ms Normal sinus rhythm with sinus arrhythmia Normal ECG When compared with ECG of 22-DEC-2019 17:07, No significant change was found Confirmed by Niko Wray ([id number]) on 12/23/2019 8:47:55 AM Referred By: REFERRED SELF Confirmed By:Niko Wray
[2019-12-23 08:55] LABS: Hematocrit (blood only) 40.1 % (37-47); Hemoglobin 13.8 g/dL (12.0-16.0); Mean Corpuscular Hgb Conc 34.4 g/dL (32-36); Mean Corpuscular Volume 98.8 fL (80-100); Mean Platelet Volume 11.5 fL (7.4-10.4); Platelet Count 266 K/uL (130-400); RDW Coefficient of Variation 13.8 % (11.5-14.5); RDW Standard Deviation 49.5 fL (36.4-46.3); Red Blood Count 4.06 M/uL (4.2-5.4); White Blood Count 7.16 K/uL (4.8-10.8)
[2019-12-23 09:23] LABS: BUN Creatinine Ratio 13.6 (10-20); Calcium 8.4 mg/dl (8.5-10.1); Creatinine Clr Calc Pharmacy 77.7 ml/min; Est GFR (African American) 90.7; Est GFR (Non-African American) 78.2; Potassium 3.5 mmol/L (3.5-5.1)
--- NOTE | 2019-12-23 10:34 | Cardiology Progress Note ---
Date of Service December 23, 2019 Assessment & Plan (1) NSTEMI (non-ST elevated myocardial infarction): (2) CAD (coronary artery disease): (3) HTN (hypertension): (4) Hyperlipidemia: 49-year-old female admitted with NSTEMI status post drug-eluting stent implantation to the large first obtuse marginal branch vessel. LAD and diagonal stents patent. Other mild to moderate CAD unchanged when compared to prior coronary angiography. Titrate atorvastatin to 80 mg daily. Continue dual antiplatelet therapy for a minimum of 12 months post myocardial infarction/drug-eluting stent implantation. Other cardiovascular medications including metoprolol and amlodipine will be continued as previously ordered. Post cardiac catheterization activity restrictions listed below. Outpatient cardiology follow-up in 1 to 2 weeks. ACTIVITY RECOMMENDATIONS: It is common to feel weak and fatigue for a few days. * Do not drive or operate any motorized equipment for the next three days. * Limit stair usage (2 or 3 trips a day only) for the next three days. * Do not lift anything heavier than 10 pounds for the next three days. * Do not engage in vigorous exercise or any sports for the next five days. * You may shower the day after your procedure, but do not immerse the area for three days. Cleanse the site gently with soap and water. SPECIAL CARE INSTRUCTIONS: * You may replace the pressure dressing or band-aid the morning after the procedure. * After your procedure, it is normal to have a small bruise or small lump at the site. Examine your site daily for any change in the bruise or lump, redness, swelling, drainage or numbness. Notify your doctor if any change. BLEEDING: * If there is a small amount of bleeding at the site, lie down and apply firm pressure with a clean cloth for ten minutes. When the bleeding stops, lie quietly keeping the procedure limb straight for six hours. Notify your doctor as soon as possible. * If the bleeding does not stop after ten minutes or if there is a large amount of bleeding or spurting, call 911 immediately. Continue to lie down and hold firm pressure until help arrives. SKIN IRRITATION: * You may experience some redness and/or swelling in the area where radiation was administered. If any skin irritation occurs, please contact your family physician. Admission and Anticipated Discharge Date Admission Date: December 21, 2019 Subjective Patient seen and examined at the bedside. Denies recurrent chest pain or unusual shortness of breath. No dysrhythmias on telemetry. Mild anterior wrist soreness noted. No ecchymosis or hematoma. Requesting discharge if possible. Offers no complaints. Review of Systems Review of Systems: All systems reviewed & are unremarkable except as noted in HPI & below Physical Exam Constitutional: well developed, well nourished and + obese Respiratory: normal respiratory effort, lungs clear to auscultation normal respiratory effort; no respiratory distress, no labored breathing and no retractions Auscultation: no crackles, no rales, no rhonchi and no wheezes Cardiovascular: RRR, no murmur, no edema Rate/Rhythm: regular rate and regular rhythm Heart Sounds: normal S1, normal S2 and + murmur (2/6 systolic ejection murmur) Vessels: radial pulses present (No ecchymosis or hematoma); no JVD Extremities: no edema Gastrointestinal (Abdomen): Inspection/Auscultation: abdomen normal to inspection and normal bowel sounds; abdomen not distended Percussion/Palpation: abdomen soft; abdomen nontender, no guarding and abdomen not rigid Skin: no rashes, warm and dry Neurologic: CN's II-XI intact bilaterally and moves all extremities; no focal motor deficits Speech / Cognition: normal speech Psychiatric: Orientation: alert and oriented x 3 Results & Data ([facility]) Vital Signs (Past 12 Hours) Vital Signs Temp Pulse Resp BP Pulse Ox 12/23/19 07:33 37.1 C 76 16 110/71 98 12/23/19 03:32 36.6 C 76 16 125/77 96 12/23/19 00:07 36.5 C 71 16 119/81 94
[2019-12-23] MEDS ORDERED: POTASSIUM CHLORIDE 20 MEQ TABCR PO STA (10:54)
--- NOTE | 2019-12-23 11:40 | Discharge Summary ---
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 She states she was in the shower whenever she developed left shoulder discomfort, described as a dull ache, radiated down left bicep, similar symptoms to prior IA and was associated with significantly increased anxiety. She states she has had similar symptoms in past but they would usually just resolve on their own. Shoulder pain lasted ap proximately 1 hour and she opted to take 1 nitroglycerin sublingual. This resolved symptoms immediately. She denies any associated diaphoresis, palpitations, shortness breath, dizziness or nausea. She denies any kory chest pain and states, "I never had chest pain the first time." Currently she is asymptomatic. She denies any recent illness, fever, chills, sweats, lightheadedness, dizziness, shortness of breath, chest pain, nausea, abdominal pain. She denies any change in her bowel or urinary habits. She denies any lower extremity edema, orthopnea or PND. She has been compliant with her aspirin and Plavix, although she did forget her aspirin this morning. In ED she remained hemodynamically stable. Initial troponin was unremarkable will repeat troponin in 2 hours elevated to 0.093. Other lab abnormalities include hypokalemia at 3.0 and otherwise unremarkable CBC and CMP. Chest x-ray was negative for any acute cardiopulmonary normality. EKG with normal sinus rhythm without ST or T wave change. Admission Exam Per Admitting Provider Constitutional: WD/WN, vitals as above, NAD, sitting up in bed, pleasant, conversing easily Head: Normocephalic, Atraumatic Eyes: PERRL, conjunctivae normal, anicteric sclerae ENMT: external ear and nose normal, oropharynx normal, absent dentition Neck: trachea midline, no thyromegaly normal visual inspection Respiratory: normal respiratory effort, lungs clear to auscultation, no wheeze, rales, rhonchi. Normal insp/exp effort, no accessory muscle use Cardiovascular: RRR, no murmur, no edema Vessels: no JVD or carotid bruit Chest: normal inspection of chest Abdomen: normal bowel sounds, soft, nontender, no hepatosplenomegaly Musculoskeletal: no cyanosis or clubbing, extremities motor strength 5/5 Skin: no rashes, warm and dry normal turgor Neurologic: PERRL, EOMI, accommodation nl, no face palsy, no dysarthria CN's II-XI intact bilaterally and moves all extremities Psychiatric: A+Ox3, euthymic affect Principal Diagnosis NSTEMI, status post SARAH to OM1 Discharge Exam Constitutional: Middle-aged female, laying in bed, WD/WN, vitals as above, in NAD Head: Normocephalic, Atraumatic Eyes: PERRL, EOMI, conjunctivae normal, anicteric sclerae ENMT: external ear and nose normal, oropharynx normal, absent dentition Neck: trachea midline, no thyromegaly normal visual inspection Respiratory: normal respiratory effort, lungs clear to auscultation, no wheeze, rales, rhonchi. Normal insp/exp effort, no accessory muscle use Cardiovascular: RRR, no murmur, no edema Vessels: no JVD or carotid bruit Chest: normal inspection of chest Abdomen: normal bowel sounds, soft, nontender, nondistended Musculoskeletal: no cyanosis or clubbing, extremities motor strength 5/5 Skin: no rashes, warm and dry normal turgor Neurologic: PERRL, EOMI, no face palsy, no dysarthria CN's II-XI intact bilaterally and moves all extremities Psychiatric: A+Ox3, euthymic affect Discharge Data Allergies Allergy/AdvReac Type Severity Reaction Status Date / Time adhesive Allergy Mild Rash Verified 12/21/19 15:02 Penicillins Allergy Mild HIVES Verified 12/21/19 15:02 Sulfa (Sulfonamide Allergy Unknown hives Verified 12/21/19 15:02 Antibiotics) Consultations 12/21/19 17:44 ED Decision to Admit Stat 12/21/19 20:18 Consult Cardiology Routine 12/22/19 10:47 Consult Cardiac Catheterization Routine 12/22/19 16:40 Consult Cardiac Rehabilitation Routine Procedures Performed Operation Date: 12/22/19 15:00 Actual Procedures p Cath, Left with Cors and Vent - Erasmo Lara DO s Drug Eluting Stent SGl Vessel - Caesar Whelan MD s Cineradiography w/Routine Exam - Caesar Whelan MD Ordered Studies 12/22/19 10:51 CL Cath Imgs for PACS use only Routine Hospital Course (1) NSTEMI (non-ST elevated myocardial infarction): (2) CAD (coronary artery disease): This is a 49-year-old female who has significant past medical history of schizoaffective disorder, bipolar disorder, tobacco abuse, CAD with history of NSTEMI SARAH to LAD and D1, RLS who presents to ED secondary to left shoulder pain x1 hour that was 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 In ED she remained hemodynamically stable. Initial troponin was unremarkable will repeat troponin in 2 hours elevated to 0.093. Other lab abnormalities include hypokalemia at 3.0 and otherwise unremarkable CBC and CMP. Chest x-ray was negative for any acute cardiopulmonary normality. EKG with normal sinus rhythm without ST or T wave change. Repeat trop @ 2013 increased from 0.093 to 0.336 and continues to remain CP free. admitted to PCU continued IV heparin gtt on admission Cardiology consulted - discussed with Dr. Lala Echocardiogram obtained (12/22/19) -shows EF of 55 to 60%. LV wall motion is normal. Mild tricuspid regurg. Estimated systolic pulmonary arterial pressure is 42. Trivial loculated apical right lateral pericardial effusion, no indication of tamponade. Lipid panel obtained, total cholesterol 175, triglycerides 229, LDL 98, HDL 31, Hgb a1c 5.5% continued ASA, plavix, statin and metoprolol Cardiology was consulted, recommended cardiac cath. Patient was taking for cardiac catheterization later today 12/21, now status post SARAH placement to mid OM1 Further recommendations: PCU for continued monitoring Reloaded with clopidogrel 300 mg Continue dual-antiplatelet therapy for at least 1 year, likely extended in the setting of multiple prior stents Continue statin, and ASCVD risk factor modification -increase atorvastatin to 80 mg daily Consult cardiac Rehab Follow-up with cardiology in 1 to 2 weeks (3) Hypokalemia: K 3.0 Replace and monitor (4) HTN (hypertension): Blood pressure stable Continue metoprolol and amlodipine (5) Hyperlipidemia: continue statin (6) Bipolar disorder: continue aripriprazole, buspar, prazosin mood stable (7) Anxiety: prn hydroxyzine pt takes mostly at HS but can take up to TID mood stable (8) Tobacco abuse: encourage smoking cessation (9) Restless leg syndrome: continue sinemet (takes up to 3 tabs at HS per pt) (10) DVT prophylaxis: IV Heparin on admission -> cardiac cath Disposition: PCU Follow up: PCP Dr. Winkler upon discharge Follow up with cardiology in 1 to 2 weeks Total Time Total Time Spent Total Time Spent (In Minutes): 40 Total Time Includes: Examination of the Patient, Discharge Planning, Medication Reconciliation and Communication With Other Providers Discharge Plan Discharge Items Patient Disposition: Home - Self-Care Reason For Visit: NSTEMI Discharge Diagnosis: NSTEMI, status post SARAH to OM1 Condition on Discharge: Good Activity: Per Instructions section Non-emergency contact: Primary Care Provider and Balancer Scale Call non-emergency contact if: you have any medication questions and your symptoms worsen Follow-up/Referrals: Rosario Winkler DO [Primary Care Provider] - (Date & Time 12/26/2019 11:20 AM Provider Rosario Winkler DO Department [facility] ) Diet: Heart Healthy Addtl Attending Provider Instructions: ACTIVITY RECOMMENDATIONS: It is common to feel weak and fatigue for a few days. * Do not drive or operate any motorized equipment for the next three days. * Limit stair usage (2 or 3 trips a day only) for the next three days. * Do not lift anything heavier than 10 pounds for the next three days. * Do not engage in vigorous exercise or any sports for the next five days. * You may shower the day after your procedure, but do not immerse the area for three days. Cleanse the site gently with soap and water. SPECIAL CARE INSTRUCTIONS: * You may replace the pressure dressing or band-aid the morning after the procedure. * After your procedure, it is normal to have a small bruise or small lump at the site. Examine your site daily for any change in the bruise or lump, redness, swelling, drainage or numbness. Notify your doctor if any change. BLEEDING: * If there is a small amount of bleeding at the site, lie down and apply firm pressure with a clean cloth for ten minutes. When the bleeding stops, lie quietly keeping the procedure limb straight for six hours. Notify your doctor as soon as possible. * If the bleeding does not stop after ten minutes or if there is a large amount of bleeding or spurting, call 911 immediately. Continue to lie down and hold firm pressure until help arrives. SKIN IRRITATION: * You may experience some redness and/or swelling in the area where radiation was administered. If any skin irritation occurs, please contact your family physician. Addtl Clinical Product Specialist Provider Instructions: Follow up with primary care doctor, appointment was scheduled for you for December 25. Medication, atorvastatin, dose was increased to 80 mg daily. Continue taking metoprolol and amlodipine as previously prescribed. Make sure to continue taking aspirin and Plavix for at least 12 months. Follow-up with cardiology, in 1 to 2 weeks. You will be contacted about the appointment. Please read further instructions above, regarding post cardiac catheterization activity restrictions. Pending Studies at Discharge: No Stand-Alone Forms: My [facility] Crowd Play, Smoking Cessation Medications and DC Order Prescriptions: New clopidogrel 75 mg Tablet 75 mg PO DAILY 30 Days Qty: 30 RF: 0 atorvastatin 40 mg Tablet 80 mg PO DAILY 30 Days Qty: 60 RF: 0 aspirin 81 mg Tablet,Delayed Release (Dr/Ec) 81 mg PO DAILY 30 Days Qty: 30 RF: 0 Continued prazosin 1 mg Capsule 1 mg PO HS RF: 0 amlodipine 2.5 mg Tablet 2.5 mg PO QAM RF: 0 clopidogrel [Plavix] 75 mg Tablet 75 mg PO DAILY RF: 0 nitroglycerin [Nitrostat] 0.4 mg Tablet, Sublingual 0.4 mg sublingual DIRECTED PRN (Reason: Chest Pain) RF: 0 metoprolol succinate 25 mg tablet extended release 24 hr 25 mg PO DAILY RF: 0 carbidopa-levodopa [Sinemet] 25-100 mg Tablet 1 - 3 tab PO HS RF: 0 prazosin 2 mg Capsule 2 mg PO HS RF: 0 cyclobenzaprine 5 mg Tablet 5 mg PO TID PRN (Reason: MUSCLE SPASMS) RF: 0 trazodone 50 mg tablet 50 mg PO HS PRN (Reason: Sleep) RF: 0 omeprazole 20 mg capsule,delayed release(DR/EC) 20 mg PO DAILY RF: 0 buspirone 7.5 mg tablet 7.5 mg PO BID RF: 0 aripiprazole 20 mg tablet 20 mg PO DAILY RF: 0 hydroxyzine HCl 50 mg tablet 50 mg PO TID PRN (Reason: Anxiety) RF: 0 Discontinued atorvastatin [Lipitor] 40 mg Tablet 40 mg PO DAILY RF: 0 aspirin 81 mg Tablet,Delayed Release (Dr/Ec) 81 mg PO DAILY RF: 0 Discharge Orders: Discharge Order (Routine); Ordered 12/23/19 Ordered By: Te Swanson/Other Patient Handouts: Cardiac Catheterization Dc, Transradial Cardiac Cath Admission Data Admit Date/Time: 12/21/19 17:58 Attending Provider: Te Ott Admit Provider: Indra Meek Primary Care Provider: Rosario Winkler Other Providers: Indra Meek ; Sandro Lala ; Erasmo Lara Other Interventions: Discharge Summary Assessment (RN) Last Done: 12/23/19 11:17
[2019-12-24] MEDS ORDERED: ATORVASTATIN 40 MG TAB PO SCH (09:00)
== END 2019-12-23 11:41 | disposition home or self-care (01) | DRG 247 ==
LOC: ED 12:47 → 2S 17:58 → SUATTDRO 17:58 → 2S 19:17

== ENCOUNTER 2022-05-27 18:08 | Inpatient (IN) ==
--- NOTE | 2022-05-27 18:09 | Emergency Department Note ---
Impression & Plan Chest pain, ST elevation (STEMI) myocardial infarction ED Provider Note ED Provider Note NAME: VIVI PETTIT AGE:52 SEX: Female : 1970 ARRIVES VIA: EMS INFORMANT: Patient ED PROVIDER(s): Chiara Bryson DO CHIEF COMPLAINT: chest pain HPI: This is a 52-year-old female presents emergency department due to concern f or onset of chest pain this afternoon. Patient states pain began at approximately 4:30 PM, and radiated into her left upper extremity. Patient became diaphoretic additionally, however denies shortness of breath. EMS did contact our facility due to concern for story, prior history of SD with stent ing, and EKG changes that were noted. Patient was made a heart alert prior to EMS arrival with the patient. Patient was given Zofran by EMS as well as aspirin and fentanyl for pain. Nitro was not given due to soft systolic blood pressures in route. On arrival here patient said pain was starting to return. She stated nausea was improved following Zofran by EMS, she denied any difficulty breathing. Patient stated that she had not been taking all of her medications recently due to low blood pressure at home when she checked it. She states she has had 2 prior stents placed and does see cardiology. She takes low-dose aspirin only, no other antiplatelet or anticoagulation medications. She denies any recent fevers, chills, or illness. PAST MEDICAL HISTORY:See Below PAST SURGICAL HISTORY:See Below FAMILY HISTORY:See Below SOCIAL HISTORY:See Below HOME MEDICATIONS:See Below ALLERGIES:See Below VITALS:See Below PHYSICAL EXAMINATION: GENERAL: alert, unwell appearing, well nourished, no distress, non-toxic EYE EXAM: normal conjunctiva, PERRL and EOM's grossly intact OROPHARYNX: no exudate, no erythema, lips, buccal mucosa, and tongue normal and mucous membranes are moist, edentulous NECK: supple, no nuchal rigidity, no adenopathy, non-tender LUNGS: Clear to auscultation. Normal chest wall mechanics, no w/r/r HEART: no murmurs, S1 normal and S2 normal, no pain with palpation over the chest wall ABDOMEN: abdomen soft, non-tender, normo-active bowel sounds, no masses, no rebound or guarding. BACK: Back is symmetrical on inspection and there is no deformity, no midline tenderness, no CVA tenderness. SKIN: no rashes, petechiae, orbruising UPPER EXTREMITIES: upper extremities are grossly normal. FROM, nml pulses b/l. LOWER EXTREMITIES: No pitting edema. FROM, nml pulses b/l. NEURO EXAM: Normal sensorium, cranial nerves II-XII grossly intact, normal speech, no facial droop,nogross weakness of arms, no gross weakness of legs. Gross sensation intact. No ataxia. Vital Signs: reviewed and remarkable Differential Diagnosis: Differential diagnoses includes but is not limited to acute coronary syndrome, pericarditis, pulmonary embolus, aortic dissection, pneumonia, pneumothorax, musculoskeletal, GERD, GI bleed MEDICAL DECISION MAKING: This is a 52-year-old female who comes to the emergency room as a code heart with chest pain and obvious EKG changes. Labs drawn and sent, IV established, repeat EKG performed at bedside and does show worsening dynamic changes of ST elevation SD compared to 2 prehospital EKGs. Patient's vital signs were stable. Patient was given aspirin, Zofran, and fentanyl prehospital. Upon arrival here, IV fluids were started, patient given additional fentanyl for pain as well as Brilinta and heparin after discussion with cardiology. Dr. Whelan of cardiology did come to bedside and discussed with patient urgent cardiac catheterization. Patient transferred to [facility] team in stable condition. Consultation(s): 1821: Discussed with Dr. Whelan who came to bedside. 1834: Discussed with [facility] hospitalist service. ER Treatment Provided: See below Diagnostics Interpreted By Me: -ECG: NSR at 70, 1st degree AV block, ST elevation noted in II, III, aVF, and V3 with ST depression in I, aVL, and V2 -Cardiac Monitoring: An order was placed for continuous cardiac monitoring. The monitor shows a rate of 62 with normal sinus rhythm. -Laboratory studies: As stated above and show below. -Imaging studies: X-ray Chest: A single view study of the chest was reviewed and was negative for cardiomegaly, focal infiltrate, effusion, pulmonary edema, or wide mediastinum. Triage Nursing Note Reviewed Prior/Outside Records Reviewed -prior cardiology consult reviewed Critical Care: Critical care of 35 min performed to assess and manage high likelihood of life-threatening STEMI, involving labs and imaging performed with assessment to evaluate chest pain diagnosis with frequent reassessment. This time includes bedside time, treatment discussions with patient/family/consultants, documentation time and excludes procedure time. Past Med/Surg History Medical History (Updated 05/27/22 @ 20:32 by Lynnette Zhou PA-C) Anxiety Bipolar disorder CAD (coronary artery disease) Depression Dyslipidemia History of - section (10/23/12) HTN (hypertension) PTSD (post-traumatic stress disorder) Restless leg syndrome Tobacco abuse Surgical History History of arthroscopy of right knee History of cardiac cath s/p SARAH x 2 to LAD and D1 History of delivery History of colonoscopy History of recent dental procedure Family History Father Myocardial infarction Coronary heart disease Leukemia Brother Myocardial infarction Hx of CABG Social History Smoking Status: Current every day smoker Tobacco Type: Cigarettes packs per day: 0.5; Cigarettes Per Day: 10; Second Hand Exposure: Yes; Do You Dip or Chew Tobacco: No; Tobacco Cessation Education Requested by Patient: Yes Hx Alcohol Use: No Hx Substance Use: No Preferred Language: Ivorian Communication Ability: Effective Child Development Consultant Required: No Beliefs That Will Affect Care: None marital status: Current Living Situation: Spouse Other Information That Helps Us Care for You: No Feels Safe at Home: Yes Safety Concerns: Feels Safe At This Time Assistive Devices: None Allergies Allergies Allergy/AdvReac Type Severity Reaction Status Date / Time adhesive Allergy Intermediate Rash Verified 04/02/22 01:38 nicotine Allergy Intermediate rash Verified 05/27/22 21:32 Penicillins Allergy Intermediate HIVES Verified 04/02/22 01:38 Sulfa (Sulfonamide Allergy Intermediate hives Verified 04/02/22 01:38 Antibiotics) Home Meds Home Medications Medication Instructions Recorded Confirmed carbidopa 25 mg-levodopa 100 mg 3 tab PO HS 12/21/19 05/27/22 tablet (Sinemet) metoprolol succinate 25 mg 12.5 mg PO QAM 12/21/19 05/27/22 tablet,extended release 24 hr albuterol sulfate 90 mcg/actuation 2 puff inhalation QID 05/27/22 05/27/22 aerosol inhaler aspirin 81 mg chewable tablet 81 mg PO QAM 05/27/22 05/27/22 bupropion HCl 300 mg 24 hr tablet, 300 mg PO DAILY 05/27/22 05/27/22 extended release buspirone 30 mg tablet 30 mg PO BID 05/27/22 05/27/22 cyanocobalamin (vitamin B-12) 1,000 mcg PO DAILY 05/27/22 05/27/22 1,000 mcg tablet,extended release folic acid 400 mcg tablet 0.4 mg PO QAM 05/27/22 05/27/22 lorazepam 1 mg tablet 1 mg PO BID PRN Anxiety 05/27/22 05/27/22 lumateperone 42 mg capsule 42 mg PO HS 05/27/22 05/27/22 (Caplyta) nitroglycerin 0.4 mg sublingual 0.4 mg sublingual UD PRN Chest Pain 05/27/22 05/27/22 tablet (Nitrostat) omeprazole 40 mg capsule,delayed 40 mg PO DAILYBB 05/27/22 05/27/22 release rosuvastatin 10 mg tablet 10 mg PO HS 05/27/22 05/27/22 sertraline 100 mg tablet 100 mg PO QAM 05/27/22 05/27/22 trazodone 150 mg tablet 150 mg PO HS 05/27/22 05/27/22 Previous Rx's Medication Instructions Recorded cyclobenzaprine 10 mg tablet 10 mg PO TID PRN muscle spasm #20 04/02/22 tabs Results & Data (ED) Vital Signs Vital Signs - 24 hr 05/27/22 18:15 05/27/22 18:22 05/27/22 18:28 Temperature 36.5 C Temperature Source Oral Pulse Rate 75 Pulse Rate [Apical] 80 Pulse Rate from SpO2 Sensor Pulse Rhythm Regular Pulse Rhythm [Apical] Regular Respiratory Rate 18 22 Respiratory Effort / Characteristics Non-Labored Spontaneous Non-Labored Spontaneous Respiratory Depth Normal Normal Respiratory Pattern Regular Regular Blood Pressure 111/77 Blood Pressure [Right Arm] 135/85 Blood Pressure Mean 88 Blood Pressure Mean [Right Arm] 101 Blood Pressure Position Semi-fowlers Blood Pressure Position [Right Arm] Semi-fowlers Pulse Oximetry 91 93 Oxygen Delivery Method Room Air Room Air Room Air Sepsis Recent Fever Within 48 Hours No Sepsis New/Unexplained Change in Mental Status No Sepsis Action Taken by Nursing No Action Required 05/27/22 18:17 05/27/22 18:13 05/27/22 18:20 Temperature Temperature Source Pulse Rate 64 69 Pulse Rate [Apical] Pulse Rate from SpO2 Sensor Pulse Rhythm Pulse Rhythm [Apical] Respiratory Rate 20 Respiratory Effort / Characteristics Respiratory Depth Respiratory Pattern Blood Pressure 135/85 Blood Pressure [Right Arm] Blood Pressure Mean 101 Blood Pressure Mean [Right Arm] Blood Pressure Position Blood Pressure Position [Right Arm] Pulse Oximetry Oxygen Delivery Method Sepsis Recent Fever Within 48 Hours Sepsis New/Unexplained Change in Mental Status Sepsis Action Taken by Nursing 05/27/22 18:20 05/27/22 18:11 Temperature Temperature Source Pulse Rate 67 Pulse Rate [Apical] Pulse Rate from SpO2 Sensor 66 Pulse Rhythm Pulse Rhythm [Apical] Respiratory Rate 23 Respiratory Effort / Characteristics Respiratory Depth Respiratory Pattern Blood Pressure Blood Pressure [Right Arm] Blood Pressure Mean Blood Pressure Mean [Right Arm] Blood Pressure Position Blood Pressure Position [Right Arm] Pulse Oximetry 91 Oxygen Delivery Method Room Air Sepsis Recent Fever Within 48 Hours Sepsis New/Unexplained Change in Mental Status Sepsis Action Taken by Nursing Laboratory Data 05/27/22 18:18 05/27/22 18:18 Lab Results 05/27/22 05/27/22 05/27/22 Range/Units 18:14 18:18 18:18 WBC 9.66 (4.8-10.8) K/ul RBC 4.09 L (4.20-5.40) M/uL Hgb 13.7 (12.0-16.0) g/dl POC Hgb (12.0-16.0) g/dl Hct 39.3 (37.0-47.0) % POC Hct (37-47) % MCV 96.1 (80.0-100.0) fL MCH 33.5 (25.0-34.0) pg MCHC 34.9 (32.0-36.0) g/dL RDW Std Deviation 44.2 (36.4-46.3) fL RDW Coeff of Luis Antonio 12.4 (11.5-14.5) % Plt Count 274 (130-400) K/uL MPV 11.6 (9.4-12.4) fL Immature Gran % (Auto) 0.3 % Neut % (Auto) 71.2 % Lymph % (Auto) 21.7 % Norman % (Auto) 4.0 % Eos % (Auto) 2.1 % Baso % (Auto) 0.7 % Neut # (Auto) 6.87 H (1.40-6.50) K/uL Lymph # (Auto) 2.10 (1.2-3.4) K/uL Norman # (Auto) 0.39 (0.11-0.59) K/uL Eos # (Auto) 0.20 (0-0.50) K/uL Baso # (Auto) 0.07 (0-0.2) K/uL Immature Gran # (Auto) 0.03 (0.01-0.20) K/uL PT 10.7 (9.0-12.0) Seconds INR 1.0 (0.9-1.1) APTT 23.6 (21.0-31.0) Seconds PTT Ratio 0.9 Activ Coag Time Kaolin (94-140) SECONDS POC Sodium (135-144) mmol/L Sodium (136-145) mmol/L POC Potassium (3.3-5.0) mmol/L Potassium (3.5-5.1) mmol/L POC Chloride (101-112) mmol/L Chloride (98-107) mmol/L Carbon Dioxide (21-32) mmol/L POC Total CO2 (24-31) mmol/L Anion Gap (3-11) POC Anion Gap (16-25) mmol/L POC BUN (7-18) mg/dl BUN (6-23) mg/dl Creatinine (0.6-1.2) mg/dl POC Creatinine (0.6-1.3) mg/dl Est Cr Clr Drug Dosing ml/min Est GFR ( Amer) ml/min Est GFR (Non-Af Amer) ml/min BUN/Creatinine Ratio (10-20) Glucose (70-99(Fasting)) mg/dl POC Glucose (other) (70-99) mg/dl Calcium (8.6-10.3) mg/dl POC Ioniz Calcium Naldo (1.12-1.32) mmol/l Magnesium (1.7-2.4) mg/dl Total Bilirubin (0.2-1.0) mg/dl AST (13-39) U/L ALT (7-52) U/L Alkaline Phosphatase (34-104) U/L Total Creatine Kinase (26-192) U/L Troponin I High Sens (0-14) pg/ml B-Natriuretic Peptide (0-100) pg/ml Total Protein (6.0-8.3) gm/dl Albumin (3.4-5.0) gm/dl Globulin (2.5-4.0) gm/dl Albumin/Globulin Ratio (0.9-2) Lipase (11-82) U/L TSH (0.300-4.500) uIu/ml SARS-CoV-2, RNA, NAAT NEGATIVE (NEGATIVE) 05/27/22 05/27/22 05/27/22 Range/Units 18:18 18:18 18:18 WBC (4.8-10.8) K/ul RBC (4.20-5.40) M/uL Hgb (12.0-16.0) g/dl POC Hgb (12.0-16.0) g/dl Hct (37.0-47.0) % POC Hct (37-47) % MCV (80.0-100.0) fL MCH (25.0-34.0) pg MCHC (32.0-36.0) g/dL RDW Std Deviation (36.4-46.3) fL RDW Coeff of Luis Antonio (11.5-14.5) % Plt Count (130-400) K/uL MPV (9.4-12.4) fL Immature Gran % (Auto) % Neut % (Auto) % Lymph % (Auto) % Norman % (Auto) % Eos % (Auto) % Baso % (Auto) % Neut # (Auto) (1.40-6.50) K/uL Lymph # (Auto) (1.2-3.4) K/uL Norman # (Auto) (0.11-0.59) K/uL Eos # (Auto) (0-0.50) K/uL Baso # (Auto) (0-0.2) K/uL Immature Gran # (Auto) (0.01-0.20) K/uL PT (9.0-12.0) Seconds INR (0.9-1.1) APTT (21.0-31.0) Seconds PTT Ratio Activ Coag Time Kaolin (94-140) SECONDS POC Sodium (135-144) mmol/L Sodium 142 (136-145) mmol/L POC Potassium (3.3-5.0) mmol/L Potassium 3.2 L (3.5-5.1) mmol/L POC Chloride (101-112) mmol/L Chloride 112 H (98-107) mmol/L Carbon Dioxide 24 (21-32) mmol/L POC Total CO2 (24-31) mmol/L Anion Gap 6 (3-11) POC Anion Gap (16-25) mmol/L POC BUN (7-18) mg/dl BUN 14 (6-23) mg/dl Creatinine 0.80 (0.6-1.2) mg/dl POC Creatinine (0.6-1.3) mg/dl Est Cr Clr Drug Dosing 73.0 ml/min Est GFR ( Amer) 99.6 ml/min Est GFR (Non-Af Amer) 86.0 ml/min BUN/Creatinine Ratio 17.5 (10-20) Glucose 138 H (70-99(Fasting)) mg/dl POC Glucose (other) (70-99) mg/dl Calcium 8.4 L (8.6-10.3) mg/dl POC Ioniz Calcium Naldo (1.12-1.32) mmol/l Magnesium 2.1 (1.7-2.4) mg/dl Total Bilirubin 0.2 (0.2-1.0) mg/dl AST 21 (13-39) U/L ALT 21 (7-52) U/L Alkaline Phosphatase 110 H (34-104) U/L Total Creatine Kinase 48 (26-192) U/L Troponin I High Sens 38.8 H (0-14) pg/ml B-Natriuretic Peptide 43 (0-100) pg/ml Total Protein 6.3 (6.0-8.3) gm/dl Albumin 4.0 (3.4-5.0) gm/dl Globulin 2.3 L (2.5-4.0) gm/dl Albumin/Globulin Ratio 1.7 (0.9-2) Lipase 43 (11-82) U/L TSH 2.680 (0.300-4.500) uIu/ml SARS-CoV-2, RNA, NAAT (NEGATIVE) 05/27/22 05/27/22 Range/Units 18:19 19:14 WBC (4.8-10.8) K/ul RBC (4.20-5.40) M/uL Hgb (12.0-16.0) g/dl POC Hgb 13.9 (12.0-16.0) g/dl Hct (37.0-47.0) % POC Hct 41 (37-47) % MCV (80.0-100.0) fL MCH (25.0-34.0) pg MCHC (32.0-36.0) g/dL RDW Std Deviation (36.4-46.3) fL RDW Coeff of Luis Antonio (11.5-14.5) % Plt Count (130-400) K/uL MPV (9.4-12.4) fL Immature Gran % (Auto) % Neut % (Auto) % Lymph % (Auto) % Norman % (Auto) % Eos % (Auto) % Baso % (Auto) % Neut # (Auto) (1.40-6.50) K/uL Lymph # (Auto) (1.2-3.4) K/uL Norman # (Auto) (0.11-0.59) K/uL Eos # (Auto) (0-0.50) K/uL Baso # (Auto) (0-0.2) K/uL Immature Gran # (Auto) (0.01-0.20) K/uL PT (9.0-12.0) Seconds INR (0.9-1.1) APTT (21.0-31.0) Seconds PTT Ratio Activ Coag Time Kaolin 299 H (94-140) SECONDS POC Sodium 143 (135-144) mmol/L Sodium (136-145) mmol/L POC Potassium 3.2 L (3.3-5.0) mmol/L Potassium (3.5-5.1) mmol/L POC Chloride 108 (101-112) mmol/L Chloride (98-107) mmol/L Carbon Dioxide (21-32) mmol/L POC Total CO2 24 (24-31) mmol/L Anion Gap (3-11) POC Anion Gap 16.0 (16-25) mmol/L POC BUN 13 (7-18) mg/dl BUN (6-23) mg/dl Creatinine (0.6-1.2) mg/dl POC Creatinine 0.8 (0.6-1.3) mg/dl Est Cr Clr Drug Dosing ml/min Est GFR ( Amer) ml/min Est GFR (Non-Af Amer) ml/min BUN/Creatinine Ratio (10-20) Glucose (70-99(Fasting)) mg/dl POC Glucose (other) 133 H (70-99) mg/dl Calcium (8.6-10.3) mg/dl POC Ioniz Calcium Naldo 1.12 (1.12-1.32) mmol/l Magnesium (1.7-2.4) mg/dl Total Bilirubin (0.2-1.0) mg/dl AST (13-39) U/L ALT (7-52) U/L Alkaline Phosphatase (34-104) U/L Total Creatine Kinase (26-192) U/L Troponin I High Sens (0-14) pg/ml B-Natriuretic Peptide (0-100) pg/ml Total Protein (6.0-8.3) gm/dl Albumin (3.4-5.0) gm/dl Globulin (2.5-4.0) gm/dl Albumin/Globulin Ratio (0.9-2) Lipase (11-82) U/L TSH (0.300-4.500) uIu/ml SARS-CoV-2, RNA, NAAT (NEGATIVE) Administered Medications Carbidopa/Levodopa (Carbidopa/Levodopa 25/100mg Tab Odt) 1 tab PO TID NICK Stop: 06/26/22 20:59 Last Admin: 05/27/22 21:46 Dose: 1 tab Documented By: VIVEK Miscellaneous ([facility] Protocol For Hyperglycemia) 1 each N/A ACHS NICK Stop: 05/29/22 20:59 Last Admin: 05/27/22 20:13 Dose: Not Given Documented By: VIVEK Miscellaneous (Caplypta 42mg - Order Awaiting Action) 1 each N/A QS NICK Stop: 06/27/22 00:00 Last Admin: 05/27/22 23:49 Dose: Not Given Documented By: CP Discontinued Medications Atropine Sulfate (Atropine Sulfate 0.1 Mg/Ml 10ml Syr) Confirm Administered Dose 1 mg IV .STK-MED ONE Stop: 05/27/22 19:12 Last Admin: 05/27/22 20:09 Dose: Not Given Documented By: VIVEK Dopamine HCl/Dextrose (Dopamine 400mg / 250ml D5w ([facility] Use Only)) Confirm Administered Dose 400 mg IV .STK-MED ONE Stop: 05/27/22 18:57 Last Admin: 05/27/22 20:09 Dose: Not Given Documented By: VIVEK Fentanyl Citrate (Fentanyl Citrate Pf 100 Mcg/2 Ml Vial) 50 mcg IV Q15M PRN PRN Reason: Pain Stop: 06/10/22 18:13 Last Admin: 05/27/22 18:24 Dose: 50 mcg Documented By: JERRY Fentanyl Citrate (Fentanyl Citrate Pf 100 Mcg/2 Ml Vial) Confirm Administered Dose 100 mcg .ROUTE .STK-MED ONE Stop: 05/27/22 18:16 Last Admin: 05/27/22 20:07 Dose: Not Given Documented By: VIVEK Heparin Sodium (Porcine) (Heparin (Porcine) 1000 Unit/Ml 10 Ml ([facility] Use Only)) Confirm Administered Dose 10,000 units .ROUTE .STK-MED ONE Stop: 05/27/22 18:16 Last Admin: 05/27/22 20:08 Dose: Not Given Documented By: VIVEK Heparin Sodium (Porcine) (Heparin Sod (Porcine) 1000 Unit/Ml) 5,000 units IV NOW ONE Stop: 05/27/22 18:22 Last Admin: 05/27/22 18:24 Dose: 5,000 units Documented By: JERRY Co-signed By: LILIANE Heparin Sodium/Sodium Chloride (Heparin In Nss Infusion 1000 Unit/500 Ml (2 U/Ml) Bag) Confirm Administered Dose 3,000 units IV .STK-MED ONE Stop: 05/27/22 18:16 Last Admin: 05/27/22 20:08 Dose: Not Given Documented By: VIVEK Sodium Chloride (Nss 1000ml) 1,000 mls @ 125 mls/hr IV .Q8H NICK Stop: 06/26/22 18:14 Last Infusion: 05/27/22 20:12 Dose: 0 mls/hr Documented By: Admin: 05/27/22 18:27 Dose: 125 mls/hr Documented By: NA Midazolam HCl (Midazolam Hcl 1 Mg/Ml 2ml Vial) Confirm Administered Dose 2 mg .ROUTE .STK-MED ONE Stop: 05/27/22 18:16 Last Admin: 05/27/22 20:08 Dose: Not Given Documented By: VIVEK Nicardipine HCl (Nicardipine Hcl Inj 2.5 Mg/Ml 10 Ml Amp) Confirm Administered Dose 25 mg .ROUTE .STK-MED ONE Stop: 05/27/22 18:16 Last Admin: 05/27/22 20:08 Dose: Not Given Documented By: CP Nitroglycerin/Dextrose (Nitroglycerin/D5w 100mcg/Ml 20ml Syr) Confirm Administered Dose 2,000 mcg .ROUTE .STK-MED ONE Stop: 05/27/22 18:17 Last Admin: 05/27/22 20:08 Dose: Not Given Documented By: CP Norepinephrine Bitartrate (Norepinephrine Bitartrate 1 Mg/Ml 4 Ml Vial ([facility] Use Only)) Confirm Administered Dose 8 mg IV .STK-MED ONE Stop: 05/27/22 19:02 Last Admin: 05/27/22 20:09 Dose: Not Given Documented By: VIVEK Potassium Chloride (Potassium Chloride Pwd 20 Meq Pack) 40 meq PO NOW STA Stop: 05/27/22 19:46 Last Admin: 05/27/22 20:04 Dose: 40 meq Documented By: VIVEK Ticagrelor (Ticagrelor 90 Mg Tab) 180 mg PO ONE ONE Stop: 05/27/22 18:16 Last Admin: 05/27/22 18:25 Dose: 180 mg Documented By: NA Discharge Plan Visit Data Chief Complaint: Heart Alert Stated Complaint: CHEST PAIN ED Provider: Chiara Bryson Discharge Problem: Chest pain, ST elevation (STEMI) myocardial infarction Patient Disposition: Admitted As Inpatient Discharge Instructions Interventions: ED Discharge Assessment Last Done: 05/27/22 18:28
[2022-05-27] MEDS ORDERED: fentaNYL citrate PF 100 MCG/2 ML VIAL IV PRN (18:14)
[2022-05-27] MEDS ORDERED: HEPARIN (PORCINE) 1000 UNIT/ML 10 ML (CATH LAB USE ONLY) ONE (18:15)
[2022-05-27] MEDS ORDERED: fentaNYL citrate PF 100 MCG/2 ML VIAL ONE (18:15)
[2022-05-27] MEDS ORDERED: SODIUM CHLORIDE 0.9% 1000ML 1,000 ML IV SCH (18:15)
[2022-05-27] MEDS ORDERED: MIDAZOLAM HCL 1 MG/ML 2ML VIAL ONE (18:15)
[2022-05-27] MEDS ORDERED: niCARdipine HCL INJ 2.5 MG/ML 10 ML AMP ONE (18:15)
[2022-05-27] MEDS ORDERED: TICAGRELOR 90 MG TAB PO ONE (18:15)
[2022-05-27] MEDS ORDERED: NITROGLYCERIN/D5W 100MCG/ML 20ML SYR ONE (18:16)
[2022-05-27] MEDS ORDERED: HEPARIN SOD (PORCINE) 1000 UNIT/ML IV ONE (18:21)
[2022-05-27 18:32] LABS: iSTAT Creatinine 0.8 mg/dl (0.6-1.3); iSTAT Hemoglobin 13.9 g/dl (12.0-16.0); iSTAT Ionized Calcium 1.12 mmol/l (1.12-1.32); iSTAT Potassium 3.2 mmol/L (3.3-5.0)
[2022-05-27 18:33] LABS: Basophils # (auto) 0.07 K/uL (0-0.2); Basophils % (auto) 0.7 %; Eosinophils % (auto) 2.1 %; Hematocrit (blood only) 39.3 % (37.0-47.0); Hemoglobin 13.7 g/dl (12.0-16.0); Immature Granulocytes # (auto) 0.03 K/uL (0.01-0.20); Immature Granulocytes % (auto) 0.3 %; Lymphocytes % (auto) 21.7 %; Mean Corpuscular Hemoglobin 33.5 pg (25.0-34.0); Mean Corpuscular Hgb Conc 34.9 g/dL (32.0-36.0); Mean Corpuscular Volume 96.1 fL (80.0-100.0); Mean Platelet Volume 11.6 fL (9.4-12.4); Monocytes # (auto) 0.39 K/uL (0.11-0.59); Neutrophils # (auto) 6.87 K/uL (1.40-6.50); Neutrophils % (auto) 71.2 %; Platelet Count 274 K/uL (130-400); RDW Coefficient of Variation 12.4 % (11.5-14.5); RDW Standard Deviation 44.2 fL (36.4-46.3); Red Blood Count 4.09 M/uL (4.20-5.40); White Blood Count 9.66 K/ul (4.8-10.8)
--- NOTE | 2022-05-27 18:36 | Cardiology Consultation ---
Date of Consultation May 27, 2022 Assessment & Plan (1) ST elevation (STEMI) myocardial infarction: Plan Presentation consistent with inferoposterior STEMI and recommend proceeding with emergent cardiac catheterization and likely primary PCI. No apparent contraindications to procedure. Discussed risks, benefits, alternatives of procedure with patient and they are willing to proceed. Given IV heparin and ticagrelor 180 mg in the ED. Further recommendations pending findings of coronary angiography. History of Present Illness History of Present Illness 52-year-old woman here with acute chest pain and ECG concerning for acute NE. Patient seen emergently in the ED after heart alert activated en route. Patient followed by Dr. Ferrari with [facility] cardiology. Past cardiac history remarkable for coronary artery disease post prior PCI to LAD, diagonal in 2018 and additional stent to OM1 in the setting of NSTEMI in 2019. Other medical issues include hypertension, dyslipidemia, bipolar. She is an active smoker. Chest pain began approximately 1615, 2 hours prior to arrival while cleaning out her dog kennel. Describes substernal chest pain with associated nausea, diaphoresis. Current pain reminiscent of what she has had prior to previous stents but more severe than pain that she had previously. Chest pain at its worst was 8 out of 10, at time of arrival 04/11. Hemodynamically stable. EKG showed inferior ST elevations with ST depressions in V1, V2 and elevation in V3. Allergies Allergy/AdvReac Type Severity Reaction Status Date / Time adhesive Allergy Intermediate Rash Verified 04/02/22 01:38 Penicillins Allergy Intermediate HIVES Verified 04/02/22 01:38 Sulfa (Sulfonamide Allergy Intermediate hives Verified 04/02/22 01:38 Antibiotics) Home Medications Medication Instructions Recorded Confirmed Type carbidopa 25 mg-levodopa 100 mg 3 tab PO HS 12/21/19 05/27/22 History tablet (Sinemet) metoprolol succinate 25 mg 12.5 mg PO QAM 12/21/19 05/27/22 History tablet,extended release 24 hr cyclobenzaprine 10 mg tablet 10 mg PO TID PRN muscle spasm #20 04/02/22 05/27/22 Rx tabs albuterol sulfate 90 mcg/actuation 2 puff inhalation QID 05/27/22 05/27/22 History aerosol inhaler aspirin 81 mg chewable tablet 81 mg PO QAM 05/27/22 05/27/22 History bupropion HCl 300 mg 24 hr tablet, 300 mg PO DAILY 05/27/22 05/27/22 History extended release buspirone 30 mg tablet 30 mg PO BID 05/27/22 05/27/22 History cyanocobalamin (vitamin B-12) 1,000 mcg PO DAILY 05/27/22 05/27/22 History 1,000 mcg tablet,extended release folic acid 400 mcg tablet 0.4 mg PO QAM 05/27/22 05/27/22 History lorazepam 1 mg tablet 1 mg PO BID PRN Anxiety 05/27/22 05/27/22 History lumateperone 42 mg capsule 42 mg PO HS 05/27/22 05/27/22 History (Caplyta) nitroglycerin 0.4 mg sublingual 0.4 mg sublingual UD PRN Chest Pain 05/27/22 05/27/22 History tablet (Nitrostat) omeprazole 40 mg capsule,delayed 40 mg PO DAILYBB 05/27/22 05/27/22 History release rosuvastatin 10 mg tablet 10 mg PO HS 05/27/22 05/27/22 History sertraline 100 mg tablet 100 mg PO QAM 05/27/22 05/27/22 History trazodone 150 mg tablet 150 mg PO HS 05/27/22 05/27/22 History Patient History Medical History (Updated 05/27/22 @ 18:09 by Chiara Bryson DO) Anxiety Bipolar disorder CAD (coronary artery disease) Depression History of - section (10/23/12) HTN (hypertension) Hyperlipidemia PTSD (post-traumatic stress disorder) Restless leg syndrome Tobacco abuse Surgical History History of arthroscopy of right knee History of cardiac cath s/p SARAH x 2 to LAD and D1 History of delivery History of colonoscopy History of recent dental procedure Family History Father Myocardial infarction Coronary heart disease Leukemia Brother Myocardial infarction Hx of CABG Social History Smoking Status: Current every day smoker Tobacco Type: Cigarettes packs per day: 0.5; Cigarettes Per Day: 10; Second Hand Exposure: No; Hx Alcohol Use: Yes Alcohol type: wine Alcohol Intake Frequency: 2-4 x/Month Hx Substance Use: No Preferred Language: Australian Beliefs That Will Affect Care: None marital status: Current Living Situation: Spouse Feels Safe at Home: Yes Assistive Devices: Glasses Review of Systems Review of Systems: Not obtained in the setting of emergent situation Physical Exam Physical Exam: General: Uncomfortable HEENT: Sclerae anicteric Lungs: Clear to auscultation anteriorly Cardiac: Regular rate and rhythm, no murmurs. Vascular: 2+ radial on right, 1+ radial and left Abdomen: Soft, nontender Extremities: Well perfused, no peripheral edema Neuro: Nonfocal Psych: Alert orient x3, normal affect and mood Results & Data Vital Signs (Past 12 Hours) Vital Signs Temp Pulse Pulse Resp BP BP Pulse Ox 05/27/22 18:17 64 05/27/22 18:28 05/27/22 18:22 80 22 135/85 93 05/27/22 18:15 97.7 F 75 18 111/77 91 O2 Del Method 05/27/22 18:17 05/27/22 18:28 Room Air 05/27/22 18:22 Room Air 05/27/22 18:15 Room Air PG Care Time/CCT Total # of Minutes Spent Total Time Spent with Patient: Total time spent is greater than 50% in coordination of care (as documented) at patient's floor/unit and/or counseling patient: Coding Level of Care Code 43929 OFFICE CONSULT LVL M Diagnoses ST elevation (STEMI) myocardial infarction I21.3
[2022-05-27 18:49] LABS: Partial Thromboplastin Ratio 0.9; Partial Thromboplastin Time 23.6 Seconds (21.0-31.0); Prothrombin Time 10.7 Seconds (9.0-12.0)
[2022-05-27] MEDS ORDERED: DOPamine 400MG / 250ML D5W (Cath Lab Use ONLY) IV ONE (18:56)
[2022-05-27] MEDS ORDERED: NOREPINEPHRINE BITARTRATE 1 MG/ML 4 ML VIAL (CATH LAB USE ONLY) IV ONE (19:01)
[2022-05-27] MEDS ORDERED: ATROPINE SULFATE 0.1 MG/ML 10ML SYR IV ONE (19:11)
[2022-05-27 19:12] LABS: Albumin Globulin Ratio 1.7 (0.9-2); BUN Creatinine Ratio 17.5 (10-20); Bilirubin,Total 0.2 mg/dl (0.2-1.0); Calcium 8.4 mg/dl (8.6-10.3); Est GFR (African American) 99.6 ml/min; Globulin 2.3 gm/dl (2.5-4.0); Magnesium 2.1 mg/dl (1.7-2.4); Potassium 3.2 mmol/L (3.5-5.1); Total Protein 6.3 gm/dl (6.0-8.3)
[2022-05-27 19:18] LABS: Troponin I High Sensitivity 38.8 pg/ml (0-14)
[2022-05-27] MEDS ORDERED: ACETAMINOPHEN 325 MG TAB PO PRN (19:23)
[2022-05-27] MEDS ORDERED: ONDANSETRON INJ 2 MG/ML 2 ML VIAL IV PRN (19:23)
--- NOTE | 2022-05-27 19:41 | Post Anesthesia Assessment ---
Date of Service May 27, 2022 Post Sedation Assessment Vital Signs Temp Pulse Pulse Resp BP BP Pulse Ox 05/27/22 18:17 64 05/27/22 18:28 05/27/22 18:22 80 22 135/85 93 05/27/22 18:15 97.7 F 75 18 111/77 91 O2 Del Method 05/27/22 18:17 05/27/22 18:28 Room Air 05/27/22 18:22 Room Air 05/27/22 18:15 Room Air Recovery Score Activity: Moves 4 extremities Respiration: Deep Breath/Cough Circulation: +/-20-49% PreAnes Value Consciousness: Fully Awake Oxygen Saturation: O2 needed for >90% Discharge Sedation Level of Care: Fast Track Phase II Post Sedation Plan On clinical assessment, the patient appears to have tolerated the sedation without complications. Patient is recovering as anticipated. Patient will continue to be monitored by nursing and may be discharged when sedation discharge criteria are met per below protocol. Upon Completions of procedure up to 15 minutes continue every 5 minute vital signs and the P.A.R. score; then discharge to a Phase I or Fast Track to Phase II per the following guidelines: * Discharge Patient to appropriate Phase II area if PAR is 8 or greater or return to pre- procedure baseline. The post - procedure orders will be as directed. * If PAR score is less than 8 or not return to pre-procedure baseline then patient will follow Phase I monitoring till PAR is reached for Phase II. The Phase I may be done in procedure room or may call to secure a Phase I area. * If naloxone or flumazenil are used for reversal, hold in Phase I for continued monitoring from when last reversal dose was given for a minimum of 60 minutes or longer pending the nurse and/or physician discretion of patient condition before discharge to Phase II. Please call the Sedation Physician to re-evaluate and complete post-note for discharge to Phase II area. Do NOT discharge from procedure sedation or Phase 1 until post- sedation evaluation note is complete by procedure /sedation MD Sedation Discharge Instructions to be given to the patient at discharge to home.
--- NOTE | 2022-05-27 19:43 | Cardiac Catheterization ---
[facility] Data: Pricing Coordinator Cardiac Status Clinical evaluation leading to the procedure CAD Presenation: STEMI Anginal Classification: CCS IV Diagnostic Physicians Name: Kimani Whelan MD Closure Device Recommendations: PCI without planned CABG Cardiac Cath Procedure Full Procedure Date May 27, 2022 Pre-Procedure Diagnosis Pre-Procedure Diagnosis: STEMI AUC Score AUC Score: 9 Post-Procedure Diagnosis Post-Procedure Diagnosis: Severe CAD, Successful PCI and Elevated Intracardiac Pressures Procedure(s) Performed Procedure(s) Performed: Coronary Angiography, Left Heart Cath, Drug Eluting Stent and Ultrasound Guided Vascular Access Conservation Enforcement Officer Kimani Whelan MD Aquaculturist(s) [place] Estimated Blood Loss Estimated Blood Loss: 10 Medication(s) Medication(s): Fentanyl, Heparin, Lidocaine 1%, Nicardipine, Nitroglycerin and Versed Medication(s): Ticagrelor Summary of Findings Indication: STEMI/Heart Alert Access: 6 Fr right radial artery under ultrasound guidance Catheters: Whitney, 5 Fr JR4 guide Findings: LM -normal caliber, luminal irregularities LAD -medium caliber, proximal to mid segment stent widely patent, 40% focal mid stenosis just after prior stent, remainder of vessel without significant disease and wraps around apex. 40-50% ostial D1 stenosis at proximal edge of prior stent. Remainder of stent with minimal ISR. Circumflex -medium caliber, 70% focal mid stenosis just after takeoff OM1. Remainder AV groove circumflex without significant disease. Medium OM1 with 50% proximal stenosis and widely patent mid segment stent without ISR. RCA -dominant, acute 100% proximal occlusion. After flow reestablished diffuse 40 to 50% mid segment stenosis. 60% proximal RPDA LVEDP -24 -- PCI -- Antithrombotic therapy: Heparin, ticagrelor Procedure: RCA cannulated with 5 Fr JR4 guide (due to radial artery spasm unable to pass 6 Fr guide). Auxiliary Equipment Operator 50 wire passed across lesion into distal vessel Proximalmid RCA lesion predilated with 2.5 compliant balloon Dilated lesion stented with 2.75 x 18 mm [place] drug-eluting stent Stent post-dilated with 3.0 noncompliant balloon IC vasodilators administered for spasm Post procedure DUNIA 3 flow, stent well expanded with minimal residual stenosis and no apparent cardiac complications. Post initial angioplasty, after flow reestablished patient became hypotensive, bradycardic which responded to atropine, IV fluids and low-dose norepinephrine. Arterial Closure: TR band Summary: 1. Inferoposterior STEMI. Acute 100% proximal RCA occlusion 2. Multivessel non-culprit coronary artery disease Patent prox-mid LAD stent. 40% focal mid LAD stenosis just after stent. 40-50% ostial D1, proximal D1 stent widely patent 70% focal mid circumflex at bifurcation with OM1. 50% proximal OM1. Mid OM stent patent 40% diffuse mid RCA, 60% proximal RPDA 3. Elevated intracardiac filling pressure 4. Transient bradycardia, hypotension post reestablished flow 5. Successful PCI of proximal RCA with single drug-eluting stent (2.75 x 18 mm Rafal; postdilated with 3.0 NC). Recommendations: Admit to ICU for continued monitoring Loaded with ticagrelor 180 mg in Pricing Coordinator Continue dual-antiplatelet therapy for at least 1 year. Trend troponins until peak, Check Echo Restart home beta-faustina, add MARIELA as BP allows High-dose statin Consult cardiac Rehab Hemodynamics Rest Ao:: 142/86/87 Final Ao: 113/74/87 LV: 107/24 Recommendations Recommendations: PCI without planned CABG Specimens Specimens: None Radiation Exposure (mGy) 818 Contrast (mls) 50 Anesthesia Moderate 9369-4859 Procedural Complication(s) None Disposition ICU I attest to the content of the Intraoperative Record and any orders documented therein. Any exceptions are noted below. [facility] Card Cath Procedure Codes Cardiac Catheterization Procedure 1: Cardiovascular Cath Procedures: 11091 Coronaries and LHC (+/-LV) Therapeutic Services & Ancillary Procedure 1: Cardiovascular Tx and Anc Procedures: 68274 Ultrasonic Guidance Vascular Access Stenting Procedure 1: Cardiovascular Stent Procedures: 21897 Perc transluminal revascularization of acute sub/total occl, aMI PG Care Time/CCT Total # of Minutes Spent Total Time Spent with Patient: Total time spent is greater than 50% in coordination of care (as documented) at patient's floor/unit and/or counseling patient:
[2022-05-27] MEDS ORDERED: POTASSIUM CHLORIDE PWD 20 MEQ PACK PO STA (19:45)
--- NOTE | 2022-05-27 19:49 | History & Physical Report ---
Date of Service May 27, 2022 Assessment & Plan (1) ST elevation (STEMI) myocardial infarction: (2) HTN (hypertension): (3) CAD (coronary artery disease): (4) Bipolar disorder: (5) Tobacco abuse: (6) Dyslipidemia: Plan: This is a 52yo F with PMH of CAD (s/p PCI to LAD in 2018, OM1 in 2019), HTN, dyslipidemia, tobacco use disorder, mood disorder and other medical problems listed below who presented as a heart alert and is s/p PCI by Dr. Whelan. Inferoposterior STEMI s/p SARAH to RCA History of CAD Presented as a heart alert with CP starting at 1615, EKG with ST elevations in inferior leads, ST depressions in V1, V2 and elevation in V3 S/p successful PCI to prox. RCA by Dr. Whelan Recovering in ICU, comfortable and asymptomatic Per cards recs: continue dual antiplatelet therapy for at least 1 year, high dose statin, resume home beta-faustina, add nani as BP allows Checking echo in AM, cardiac rehab at time of discharge HTN Patient recently stopped her beta faustina due to feeling lightheaded - restarting as above Tobacco use disorder Continues to smoke 0.5-1 ppd. Continue cessation counseling conversations throughout admission Bipolar disorder, anxiety Continue home Caplyta, bupropion, buspirone, lorazepam PRN Code status: FULL PCP: Tomi Dispo: Admitted to ICU Patient seen in collaboration with Dr. Handley. Please see addendum. Admission and Anticipated Discharge Date Admission Date: May 27, 2022 History of Present Illness Chief Complaint: heart alert Primary Care Provider: Kelsey Duenas PA-C This is a 52yo F with PMH of CAD (s/p PCI to LAD in 2018, OM1 in 2019), HTN, dyslipidemia, tobacco use disorder, mood disorder and other medical problems listed below who presented as a heart alert and is s/p PCI by Dr. Whelan. Patent was cleaning out her dog kennel earlier this afternoon around 1615 when she developed substernal chest pain with associated nausea and diaphoresis. Endorse 1 episode of vomiting prior to arrival. Pain was similar to previous episodes from which she required stent placement although states this pain was more severe. ECG obtained when EMS arrived was consistent with an inferior CO. Follows with Dr. Ferrari for cardiology. Evaluated post-cath in room 104. No longer experiencing chest pain or nausea. Comfortable at rest. Did become temporarily bradycardic and hypotensive in the Warehouse Record Clerk and was temporarily on Levophed drip which is now been discontinued. Most recent BP 123/75. Denies any fever, chills, lightheadedness, chest pain, shortness of breath, nausea, vomiting, abdominal pain, dysuria, diarrhea or constipation. Still smoking 0.5-1 ppd. Allergies Allergy/AdvReac Type Severity Reaction Status Date / Time adhesive Allergy Intermediate Rash Verified 04/02/22 01:38 nicotine Allergy Intermediate rash Verified 05/27/22 21:32 Penicillins Allergy Intermediate HIVES Verified 04/02/22 01:38 Sulfa (Sulfonamide Allergy Intermediate hives Verified 04/02/22 01:38 Antibiotics) Home Medications Medication Instructions Recorded Confirmed Type carbidopa 25 mg-levodopa 100 mg 3 tab PO HS 12/21/19 05/27/22 History tablet (Sinemet) metoprolol succinate 25 mg 12.5 mg PO QAM 12/21/19 05/27/22 History tablet,extended release 24 hr cyclobenzaprine 10 mg tablet 10 mg PO TID PRN muscle spasm #20 04/02/22 05/27/22 Rx tabs albuterol sulfate 90 mcg/actuation 2 puff inhalation QID 05/27/22 05/27/22 History aerosol inhaler aspirin 81 mg chewable tablet 81 mg PO QAM 05/27/22 05/27/22 History bupropion HCl 300 mg 24 hr tablet, 300 mg PO DAILY 05/27/22 05/27/22 History extended release buspirone 30 mg tablet 30 mg PO BID 05/27/22 05/27/22 History cyanocobalamin (vitamin B-12) 1,000 mcg PO DAILY 05/27/22 05/27/22 History 1,000 mcg tablet,extended release folic acid 400 mcg tablet 0.4 mg PO QAM 05/27/22 05/27/22 History lorazepam 1 mg tablet 1 mg PO BID PRN Anxiety 05/27/22 05/27/22 History lumateperone 42 mg capsule 42 mg PO HS 05/27/22 05/27/22 History (Caplyta) nitroglycerin 0.4 mg sublingual 0.4 mg sublingual UD PRN Chest Pain 05/27/22 05/27/22 History tablet (Nitrostat) omeprazole 40 mg capsule,delayed 40 mg PO DAILYBB 05/27/22 05/27/22 History release rosuvastatin 10 mg tablet 10 mg PO HS 05/27/22 05/27/22 History sertraline 100 mg tablet 100 mg PO QAM 05/27/22 05/27/22 History trazodone 150 mg tablet 150 mg PO HS 05/27/22 05/27/22 History Past Med/Surg History Medical History (Updated 05/27/22 @ 20:32 by Lynnette Zhou PA-C) Anxiety Bipolar disorder CAD (coronary artery disease) Depression Dyslipidemia History of - section (10/23/12) HTN (hypertension) PTSD (post-traumatic stress disorder) Restless leg syndrome Tobacco abuse Surgical History History of arthroscopy of right knee History of cardiac cath s/p SARAH x 2 to LAD and D1 History of delivery History of colonoscopy History of recent dental procedure Family History Father Myocardial infarction Coronary heart disease Leukemia Brother Myocardial infarction Hx of CABG Social History Smoking Status: Current every day smoker Tobacco Type: Cigarettes packs per day: 0.5; Cigarettes Per Day: 10; Second Hand Exposure: Yes; Do You Dip or Chew Tobacco: No; Tobacco Cessation Education Requested by Patient: Yes Hx Alcohol Use: No Hx Substance Use: No Preferred Language: Eritrean Communication Ability: Effective Parts Washer Required: No Beliefs That Will Affect Care: None marital status: Current Living Situation: Spouse Other Information That Helps Us Care for You: No Feels Safe at Home: Yes Safety Concerns: Feels Safe At This Time Assistive Devices: None Review of Systems Review of Systems: At least ten systems reviewed and negative except as noted in the HPI. Physical Exam Physical Exam: General Appearance: WD/WN, vitals as above, NAD, sitting up in bed, pleasant, conversing easily Head: normocephalic, atraumatic Eyes: normal inspection, PERRL, conjunctivae normal, anicteric sclerae ENT: external ear and nose normal, oropharynx normal Neck: normal visual inspection, trachea midline, no thyromegaly Respiratory: normal respiratory effort, lungs clear to auscultation, no wheeze, rales, rhonchi. No accessory muscle use Cardiovascular: regular rate, rhythm, no murmur, normal peripheral pulses, no BLE edema. Vessels: no JVD Chest: normal inspection of chest Abdomen/GI: normal bowel sounds, soft, nontender, no hepatosplenomegaly Extremities/Musculoskeletal: no cyanosis or clubbing, extremities motor strength 5/5. R wrist guard Neurologic: PERRL, EOMI, accommodation nl, no face palsy, no dysarthria, CN's II-XI intact bilaterally and moves all extremities Psychiatric: A+Ox3, euthymic affect Skin: no rashes, normal color, warm/dry Results & Data Results & Data Vital Signs (Past 12 Hours) Vital Signs Temp Pulse Pulse Resp BP BP Pulse Ox 05/27/22 18:17 64 05/27/22 18:28 05/27/22 18:22 80 22 135/85 93 05/27/22 18:15 36.5 C 75 18 111/77 91 O2 Del Method 05/27/22 18:17 05/27/22 18:28 Room Air 05/27/22 18:22 Room Air 05/27/22 18:15 Room Air Laboratory Results Short CBC 05/27/22 Range/Units 18:18 WBC 9.66 (4.8-10.8) K/ul Hgb 13.7 (12.0-16.0) g/dl Hct 39.3 (37.0-47.0) % Plt Count 274 (130-400) K/uL BMP 05/27/22 18:18 Sodium 142 Potassium 3.2 L Chloride 112 H Carbon Dioxide 24 BUN 14 Creatinine 0.80 Glucose 138 H Calcium 8.4 L Cardiac Enzymes 05/27/22 Range/Units 18:18 Total Creatine Kinase 48 (26-192) U/L Liver Function 05/27/22 Range/Units 18:18 Total Bilirubin 0.2 (0.2-1.0) mg/dl AST 21 (13-39) U/L ALT 21 (7-52) U/L Alkaline Phosphatase 110 H (34-104) U/L Albumin 4.0 (3.4-5.0) gm/dl ECG Additional Comments: EKG reviewed- inferior ST elevations with ST depressions in V1, V2 and elevation in V3 Code Status & VTE Plan VTE Prophylaxis Plan VTE Prophylaxis will be ordered: Yes Supervising Physician Co-Signing Physician Notes IM ATTENDING : Patient seen and examined. History obtained from patient, family, and records. Preceding documentation by Ms. Lynnette Zhou PA-C reviewed. In addition, O2 sats noted to be 80s at the ER. 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 Heparin subcu as ordered by ICU provider Full code Text document was generated using [employer] voice recognition software. It may contain grammatical or spelling errors. Kindly contact undersigned for clarification of any documentation item in question.
[2022-05-27] MEDS: ICU Protocol for HYPERglycemia SCH (20:13)
--- NOTE | 2022-05-27 20:14 | Critical Care Consultation ---
Date of Consultation May 27, 2022 Assessment & Plan (1) ST elevation (STEMI) myocardial infarction: Impression: 52-year-old female with past medical history of coronary artery disease (s/p stent in 2017 and 2019), presents to the ICU following inferior STEMI where she received successful PCI with SARAH to the RCA. Neuro - Anxiety disorder/bipolar disorderno issues at this time, will continue home med regimen. Cardiac - Inferior STEMIpatient presented with chest pain, diaphoresis, nausea and was found to have ST elevation in inferior leads with ST depression in V1, V2, and V3. -Status post successful PCI with SARAH x1 to the RCA - Follow-up echo - Trend troponin for peak - Continue ASA, Brilinta, Crestor - We will hold on MTP and lisinopril for now as patient was hypotensive in the [facility]. Currently off vasopressors - Follow-up cardiology recommendations - Follow-up EKG in a.m., Continuous monitor on telemetry Respiratory - History of tobacco abusecurrently maintaining oxygen saturation on nasal cannula, weaning as tolerated. Encourage cessation of cigarette use. Continuous pulse ox monitoring GI - Heart healthy diet RENAL/LYTES - Creatinine into the normal limits, monitor electrolytes With routine BMP and replete as indicated - Strict I's and O's ENDO - No history of diabetes or thyroid disease. ICU hyperglycemic protocol HEME - H&H stable, monitor routine CBC ID - No indication for infectious process at this time LINES/IV ACCESS - Peripheral IVs DVT PROPHYLAXIS - SCDs, Heparin Thank you for allowing us to participate in the care of this patient. Please refer to my attending physician's documentation for any further recommendations. (2) HTN (hypertension): (3) CAD (coronary artery disease): (4) Bipolar disorder: (5) Hyperlipidemia: (6) Anxiety: (7) Tobacco abuse: History of Present Illness Attending Physician: Kimani Whelan MD History of Present Illness Patient is a 52-year-old female past medical history significant for coronary artery disease (s/p PCI to the LAD in 2018, OM1 in 2019), HTN, HLD, tobacco use, mood disorderWho presented to the emergency department after developing chest pain around 1615 earlier today associated with nausea and diaphoresis.EKG revealed inferior ST elevation with ST depression in leads V1, V2, and V3. Heart alert was initiated and patient was given heparin and aspirin. She was taken to the [facility] where she was found to have occlusion of the RCA and underwent PCI x1 with SARAH to the RCA. Patient now presents to the ICU for further management at this time. On arrival to the ICU the patient is alert and oriented without acute distress. She is currently maintaining oxygen saturations on nasal cannula and is hemodynamically stable in sinus rhythm on the monitor. Patient did become temporarily bradycardic and hypotensive in the [facility] and was temporarily on Levophed drip which is now been discontinued. At this time patient denies chest pain, palpitations, shortness of breath. She denies recent illness, fevers, syncope, dizziness, sore throat or cough, abdominal pain, diarrhea, swelling in hands and feet. She does report an episode of nausea and vomiting prior to arrival to the hospital. She also reports joint pain which is a new onset recently. Allergies Allergy/AdvReac Type Severity Reaction Status Date / Time adhesive Allergy Intermediate Rash Verified 04/02/22 01:38 Penicillins Allergy Intermediate HIVES Verified 04/02/22 01:38 Sulfa (Sulfonamide Allergy Intermediate hives Verified 04/02/22 01:38 Antibiotics) Home Medications Medication Instructions Recorded Confirmed Type carbidopa 25 mg-levodopa 100 mg 3 tab PO HS 12/21/19 05/27/22 History tablet (Sinemet) metoprolol succinate 25 mg 12.5 mg PO QAM 12/21/19 05/27/22 History tablet,extended release 24 hr cyclobenzaprine 10 mg tablet 10 mg PO TID PRN muscle spasm #20 04/02/22 05/27/22 Rx tabs albuterol sulfate 90 mcg/actuation 2 puff inhalation QID 05/27/22 05/27/22 History aerosol inhaler aspirin 81 mg chewable tablet 81 mg PO QAM 05/27/22 05/27/22 History bupropion HCl 300 mg 24 hr tablet, 300 mg PO DAILY 05/27/22 05/27/22 History extended release buspirone 30 mg tablet 30 mg PO BID 05/27/22 05/27/22 History cyanocobalamin (vitamin B-12) 1,000 mcg PO DAILY 05/27/22 05/27/22 History 1,000 mcg tablet,extended release folic acid 400 mcg tablet 0.4 mg PO QAM 05/27/22 05/27/22 History lorazepam 1 mg tablet 1 mg PO BID PRN Anxiety 05/27/22 05/27/22 History lumateperone 42 mg capsule 42 mg PO HS 05/27/22 05/27/22 History (Caplyta) nitroglycerin 0.4 mg sublingual 0.4 mg sublingual UD PRN Chest Pain 05/27/22 05/27/22 History tablet (Nitrostat) omeprazole 40 mg capsule,delayed 40 mg PO DAILYBB 05/27/22 05/27/22 History release prednisone 10 mg tablet 10 mg PO DAILY 05/27/22 05/27/22 History rosuvastatin 10 mg tablet 10 mg PO HS 05/27/22 05/27/22 History sertraline 100 mg tablet 100 mg PO QAM 05/27/22 05/27/22 History trazodone 150 mg tablet 150 mg PO HS 05/27/22 05/27/22 History Patient History Medical History (Updated 05/27/22 @ 20:32 by Lynnette Zhou PA-C) Anxiety Bipolar disorder CAD (coronary artery disease) Depression Dyslipidemia History of - section (10/23/12) HTN (hypertension) PTSD (post-traumatic stress disorder) Restless leg syndrome Tobacco abuse Surgical History History of arthroscopy of right knee History of cardiac cath s/p SARAH x 2 to LAD and D1 History of delivery History of colonoscopy History of recent dental procedure Family History Father Myocardial infarction Coronary heart disease Leukemia Brother Myocardial infarction Hx of CABG Social History Smoking Status: Current every day smoker Tobacco Type: Cigarettes packs per day: 0.5; Cigarettes Per Day: 10; Second Hand Exposure: No; Hx Alcohol Use: Yes Alcohol type: wine Alcohol Intake Frequency: 2-4 x/Month Hx Substance Use: No Preferred Language: Indonesian Beliefs That Will Affect Care: None marital status: Current Living Situation: Spouse Feels Safe at Home: Yes Assistive Devices: Glasses Review of Systems Review of Systems: All systems reviewed & are unremarkable except as noted in HPI & below Physical Exam Constitutional: cooperative and comfortable Eyes: PERRL, conjunctivae normal, anicteric sclerae ENMT: external ear and nose normal, oropharynx normal Neck: trachea midline, no thyromegaly Respiratory: normal respiratory effort, lungs clear to auscultation Cardiovascular: RRR, no murmur, no edema Heart Sounds: normal S1 and normal S2; no murmur Extremities: no edema Gastrointestinal (Abdomen): normal bowel sounds, soft, nontender, no hepatosplenomegaly Musculoskeletal: no cyanosis or clubbing, extremities motor strength 5/5 Skin: no rashes, warm and dry Neurologic: PERRL, EOMI, accommodation nl, no face palsy, no dysarthria Psychiatric: A+Ox3, euthymic affect Results & Data Results & Data Vital Signs (Past 12 Hours) Vital Signs Temp Pulse Pulse Resp BP BP Pulse Ox 05/27/22 18:17 64 05/27/22 18:28 05/27/22 18:22 80 22 135/85 93 05/27/22 18:15 36.5 C 75 18 111/77 91 O2 Del Method 05/27/22 18:17 05/27/22 18:28 Room Air 05/27/22 18:22 Room Air 05/27/22 18:15 Room Air Coding Level of Care Code 55282 IN/OBS CONSULT LVL 3,45M Diagnoses ST elevation (STEMI) myocardial infarction I21.3 HTN (hypertension) I10 CAD (coronary artery disease) I25.10 Bipolar disorder F31.9 Hyperlipidemia E78.5 Anxiety F41.9 Tobacco abuse Z72.0
[2022-05-27] MEDS ORDERED: LORazepam 1 MG TAB PO PRN (20:47)
[2022-05-27] MEDS: CARBIDOPA/LEVODOPA 25/100MG TAB ODT PO SCH (21:46)
[2022-05-28 03:27] LABS: Basophils # (auto) 0.05 K/uL (0-0.2); Basophils % (auto) 0.6 %; Eosinophils # (auto) 0.06 K/uL (0-0.50); Eosinophils % (auto) 0.7 %; Hematocrit (blood only) 35.7 % (37.0-47.0); Hemoglobin 12.1 g/dl (12.0-16.0); Immature Granulocytes # (auto) 0.01 K/uL (0.01-0.20); Immature Granulocytes % (auto) 0.1 %; Lymphocytes # (auto) 1.66 K/uL (1.2-3.4); Lymphocytes % (auto) 19.6 %; Mean Corpuscular Hgb Conc 33.9 g/dL (32.0-36.0); Mean Corpuscular Volume 97.3 fL (80.0-100.0); Mean Platelet Volume 11.2 fL (9.4-12.4); Monocytes # (auto) 0.46 K/uL (0.11-0.59); Monocytes % (auto) 5.4 %; Neutrophils # (auto) 6.25 K/uL (1.40-6.50); Neutrophils % (auto) 73.6 %; Platelet Count 218 K/uL (130-400); RDW Coefficient of Variation 12.8 % (11.5-14.5); RDW Standard Deviation 46.2 fL (36.4-46.3); Red Blood Count 3.67 M/uL (4.20-5.40); White Blood Count 8.49 K/ul (4.8-10.8)
[2022-05-28 03:58] LABS: BUN Creatinine Ratio 20.8 (10-20); Calcium 8.5 mg/dl (8.6-10.3); Chol HDL Ratio 4.9 (0-5); Creatinine Clr Calc Pharmacy 78.9 ml/min; Est GFR (African American) 113.2 ml/min; Est GFR (Non-African American) 97.7 ml/min; Magnesium 1.9 mg/dl (1.7-2.4); Phosphorus 4.3 mg/dl (2.5-4.9); Potassium 4.1 mmol/L (3.5-5.1)
--- NOTE | 2022-05-28 07:05 | XRay Report ---
XR chest 1V portable HISTORY: Hypoxia. COMPARISON: 07/12/2021. FINDINGS: No pneumothorax. No pleural effusions. The heart is normal in size. No acute rib fractures. Mild diffuse interstitial thickening. No new focal lung consolidations. IMPRESSION: Mild diffuse interstitial thickening. This may be chronic or represent developing congestive change. ACT 112: Negative or not required by law. Electronically signed by: Dustin Harris M.D. 05/28/2022 7:03 AM
[2022-05-28] MEDS: ICU Protocol for HYPERglycemia SCH ×5 (07:30→20:16)
[2022-05-28] MEDS: SERTRALINE HCL 100 MG TABLET PO SCH (07:31)
[2022-05-28] MEDS: ROSUVASTATIN CALCIUM 20 MG TAB PO SCH (07:31)
[2022-05-28] MEDS: HEPARIN SOD 5,000 UNIT/0.5 ML VIAL SQ SCH ×2 (07:31→19:48)
[2022-05-28] MEDS: ASPIRIN 81 MG ECTAB PO SCH (07:31)
[2022-05-28] MEDS: PANTOprazole 40 MG TAB PO SCH (07:31)
[2022-05-28] MEDS: CARBIDOPA/LEVODOPA 25/100MG TAB ODT PO SCH ×3 (07:31→19:45)
[2022-05-28] MEDS: TICAGRELOR 90 MG TAB PO SCH ×2 (07:31→19:45)
[2022-05-28] MEDS: buPROPion XL 300 MG TABCR PO SCH (07:31)
--- NOTE | 2022-05-28 08:20 | Hospitalist Progress Note ---
Date of Service May 28, 2022 Assessment & Plan (1) ST elevation (STEMI) myocardial infarction: (2) HTN (hypertension): (3) CAD (coronary artery disease): (4) Bipolar disorder: (5) Tobacco abuse: (6) Dyslipidemia: Plan: This is a 52yo F with PMH of CAD (s/p PCI to LAD in 2018, OM1 in 2020), HTN, dyslipidemia, tobacco use disorder, mood disorder and other medical problems listed below who presented as a heart alert and is s/p PCI by Dr. Whelan. Inferoposterior STEMI s/p SARAH to RCA History of CAD Presented as a heart alert with CP starting at 1615, EKG with ST elevations in inferior leads, ST depressions in V1, V2 and elevation in V3 S/p successful PCI to prox. RCA by Dr. Whelan Transient hypotension/bradycardia during PCI- Currently resolved Recovering in ICU, comfortable and asymptomatic Per cards recs: continue dual antiplatelet therapy for at least 1 year (ASA + Brillinta), high dose statin (rosuvastatin increased to 20 mg daily) resume home beta-faustina, add nani as BP allows - BP on lower side Echo checked this AM - Normal LV chamber size and wall thickness. Normal LV systolic function, EF 55 to 60%. Mild hypokinesis of the inferior wall with otherwise normal wall motion. Grade 2 diastolic dysfunction. Aortic valve sclerosis mild, without significant aortic valvular stenosis Hypoxemic respiratory failure Underlying pulmonary hypertension from TTE from 2019 Rule out pulmonary congestion Currently on RA, clinically much improved HTN Patient recently stopped her beta faustina due to feeling lightheaded hold beta faustina Tobacco use disorder Continues to smoke 0.5-1 ppd. Smoking cessation counseling provided. Bipolar disorder, anxiety Continue home Caplyta, bupropion, buspirone, lorazepam PRN Code status: FULL PCP: Dr. Krishna Dispo: ICU Admission and Anticipated Discharge Date Admission Date: May 27, 2022 Subjective Pt seen in follow up of STEMI, s/p PCI with SARAH to RCA Currently sitting up in bed, in no acute distress Eating lunch Denies any chest pain palpitations shortness of breath Reports she has been ambulatory in her room No fevers chills abdominal pain nausea or vomiting Review of Systems Review of Systems: All systems reviewed & are unremarkable except as noted in Subjective Physical Exam Physical Exam: General: WD/WN F in no acute distress. HEENT: Normocephalic, atraumatic.EOMI, PERRL Neck: No JVD. No bruit. Cardiovascular: Regular. No murmurs or rubs. Pulmonary: Clear to auscultation B/L. No rales, rhonchi or wheezing Abdomen: Bowel sounds x 4, soft. No rebound, guarding or tenderness. Extremities: No LE edema, moves extremities Neuro: Awake, alert and oriented x 3. Speech fluent, no facial asymmetry, moves extremities Skin: Warm and dry Results & Data Results & Data Vital Signs (Past 12 Hours) Vital Signs Temp Pulse Resp BP Pulse Ox O2 Del Method O2 Flow Rate 05/28/22 06:30 59 L 19 96 05/28/22 06:20 59 L 18 94 05/28/22 06:10 58 L 17 97 05/28/22 06:00 58 L 18 96 05/28/22 06:00 130/87 05/28/22 05:50 59 L 19 94 05/28/22 05:40 57 L 19 97 05/28/22 05:30 56 L 17 96 05/28/22 05:20 65 18 93 05/28/22 05:10 64 18 98 05/28/22 05:06 134/93 05/28/22 05:06 64 12 05/28/22 05:00 54 L 17 95 05/28/22 04:50 60 17 95 05/28/22 04:40 56 L 22 95 05/28/22 04:30 56 L 18 95 05/28/22 04:20 55 L 16 96 05/28/22 04:10 63 20 100 05/28/22 04:00 58 L 17 95 05/28/22 04:00 121/87 05/28/22 03:50 57 L 18 94 05/28/22 03:40 56 L 18 93 05/28/22 03:30 58 L 18 94 05/28/22 03:20 58 L 19 93 05/28/22 03:10 62 20 94 05/28/22 03:00 58 L 18 95 05/28/22 03:00 131/81 05/28/22 02:50 68 17 94 05/28/22 02:40 63 18 92 05/28/22 02:30 69 18 95 05/28/22 02:20 64 17 96 05/28/22 02:10 58 L 17 95 05/28/22 02:00 59 L 17 96 05/28/22 02:00 117/79 05/28/22 01:50 57 L 14 97 05/28/22 01:40 59 L 17 96 05/28/22 01:30 62 16 96 05/28/22 01:20 62 16 95 05/28/22 01:10 58 L 17 95 05/28/22 01:00 54 L 17 93 05/28/22 01:00 119/76 05/28/22 00:50 76 17 98 05/28/22 00:40 59 L 18 96 05/28/22 00:30 62 18 96 05/28/22 00:20 60 16 95 05/28/22 00:10 61 18 95 05/28/22 00:00 63 16 95 05/28/22 00:00 112/70 05/27/22 23:50 70 17 94 05/27/22 23:40 65 17 96 05/28/22 04:00 36.7 C 05/27/22 23:36 68 05/27/22 23:30 65 17 94 05/27/22 23:20 64 19 95 05/27/22 23:10 72 22 94 05/27/22 23:07 105/72 05/27/22 23:07 71 22 95 05/27/22 23:00 75 22 94 05/27/22 22:50 76 14 97 05/27/22 22:45 85 25 H 96 05/27/22 22:45 123/69 05/27/22 22:40 75 28 H 97 05/27/22 22:30 81 18 98 05/27/22 22:30 124/63 05/27/22 22:20 72 22 98 05/27/22 22:15 116/65 05/27/22 22:15 97 H 29 H 98 05/27/22 22:10 75 23 98 05/27/22 22:00 79 21 96 05/27/22 22:00 118/66 05/27/22 21:50 79 25 H 98 05/27/22 21:50 117/70 05/27/22 21:40 69 20 99 05/27/22 21:31 73 18 98 05/27/22 21:31 119/93 05/27/22 21:30 73 21 99 05/27/22 21:20 72 19 99 05/27/22 21:10 72 17 98 05/27/22 21:00 83 26 H 98 05/27/22 21:00 149/84 H 05/27/22 23:00 36.6 C 05/27/22 22:07 Nasal Cannula 2 05/27/22 20:50 82 25 H 97 05/27/22 20:45 86 24 97 05/27/22 20:45 129/85 05/27/22 20:40 81 29 H 96 05/27/22 20:30 67 18 96 05/27/22 20:30 122/91 05/27/22 20:20 70 19 99 Laboratory Results 05/28/22 05/28/22 05/28/22 Range/Units 03:10 03:10 03:10 WBC 8.49 (4.8-10.8) K/ul RBC 3.67 L (4.20-5.40) M/uL Hgb 12.1 (12.0-16.0) g/dl POC Hgb (12.0-16.0) g/dl Hct 35.7 L (37.0-47.0) % POC Hct (37-47) % MCV 97.3 (80.0-100.0) fL MCH 33.0 (25.0-34.0) pg MCHC 33.9 (32.0-36.0) g/dL RDW Std Deviation 46.2 (36.4-46.3) fL RDW Coeff of Luis Antonio 12.8 (11.5-14.5) % Plt Count 218 (130-400) K/uL MPV 11.2 (9.4-12.4) fL Immature Gran % (Auto) 0.1 % Neut % (Auto) 73.6 % Lymph % (Auto) 19.6 % Freeborn % (Auto) 5.4 % Eos % (Auto) 0.7 % Baso % (Auto) 0.6 % Neut # (Auto) 6.25 (1.40-6.50) K/uL Lymph # (Auto) 1.66 (1.2-3.4) K/uL Free[place] # (Auto) 0.46 (0.11-0.59) K/uL Eos # (Auto) 0.06 (0-0.50) K/uL Baso # (Auto) 0.05 (0-0.2) K/uL Immature Gran # (Auto) 0.01 (0.01-0.20) K/uL PT (9.0-12.0) Seconds INR (0.9-1.1) APTT (21.0-31.0) Seconds PTT Ratio Activ Coag Time Kaolin (94-140) SECONDS POC Sodium (135-144) mmol/L Sodium 140 (136-145) mmol/L POC Potassium (3.3-5.0) mmol/L Potassium 4.1 D (3.5-5.1) mmol/L POC Chloride (101-112) mmol/L Chloride 110 H (98-107) mmol/L Carbon Dioxide 25 (21-32) mmol/L POC Total CO2 (24-31) mmol/L Anion Gap 5 (3-11) POC Anion Gap (16-25) mmol/L POC BUN (7-18) mg/dl BUN 15 (6-23) mg/dl Creatinine 0.72 (0.6-1.2) mg/dl POC Creatinine (0.6-1.3) mg/dl Est Cr Clr Drug Dosing 78.9 ml/min Est GFR ( Amer) 113.2 ml/min Est GFR (Non-Af Amer) 97.7 ml/min BUN/Creatinine Ratio 20.8 H (10-20) Glucose 127 H (70-99(Fasting)) mg/dl POC Glucose (70-99) mg/dl POC Glucose (other) (70-99) mg/dl Estimat Average Glucose Pending Hemoglobin A1c Pending Calcium 8.5 L (8.6-10.3) mg/dl POC Ioniz Calcium Naldo (1.12-1.32) mmol/l Phosphorus 4.3 (2.5-4.9) mg/dl Magnesium 1.9 (1.7-2.4) mg/dl Total Bilirubin (0.2-1.0) mg/dl AST (13-39) U/L ALT (7-52) U/L Alkaline Phosphatase (34-104) U/L Total Creatine Kinase (26-192) U/L Troponin I High Sens (0-14) pg/ml B-Natriuretic Peptide (0-100) pg/ml Total Protein (6.0-8.3) gm/dl Albumin (3.4-5.0) gm/dl Globulin (2.5-4.0) gm/dl Albumin/Globulin Ratio (0.9-2) Triglycerides 85 (0-150) mg/dl Cholesterol 178 (0-200) mg/dl LDL Cholesterol, Calc 125 mg/dl VLDL Cholesterol, Calc 17 (0-30) mg/dl HDL Cholesterol 36 mg/dl Cholesterol/HDL Ratio 4.9 (0-5) Lipase (11-82) U/L TSH (0.300-4.500) uIu/ml Nasal Screen MRSA (PCR) (Negative) SARS-CoV-2, RNA, NAAT (NEGATIVE) 05/28/22 05/27/22 05/27/22 Range/Units 03:10 Unknown 20:25 WBC (4.8-10.8) K/ul RBC (4.20-5.40) M/uL Hgb (12.0-16.0) g/dl POC Hgb (12.0-16.0) g/dl Hct (37.0-47.0) % POC Hct (37-47) % MCV (80.0-100.0) fL MCH (25.0-34.0) pg MCHC (32.0-36.0) g/dL RDW Std Deviation (36.4-46.3) fL RDW Coeff of Luis Antonio (11.5-14.5) % Plt Count (130-400) K/uL MPV (9.4-12.4) fL Immature Gran % (Auto) % Neut % (Auto) % Lymph % (Auto) % Free[place] % (Auto) % Eos % (Auto) % Baso % (Auto) % Neut # (Auto) (1.40-6.50) K/uL Lymph # (Auto) (1.2-3.4) K/uL Free[place] # (Auto) (0.11-0.59) K/uL Eos # (Auto) (0-0.50) K/uL Baso # (Auto) (0-0.2) K/uL Immature Gran # (Auto) (0.01-0.20) K/uL PT (9.0-12.0) Seconds INR (0.9-1.1) APTT (21.0-31.0) Seconds PTT Ratio Activ Coag Time Kaolin (94-140) SECONDS POC Sodium (135-144) mmol/L Sodium (136-145) mmol/L POC Potassium (3.3-5.0) mmol/L Potassium (3.5-5.1) mmol/L POC Chloride (101-112) mmol/L Chloride (98-107) mmol/L Carbon Dioxide (21-32) mmol/L POC Total CO2 (24-31) mmol/L Anion Gap (3-11) POC Anion Gap (16-25) mmol/L POC BUN (7-18) mg/dl BUN (6-23) mg/dl Creatinine (0.6-1.2) mg/dl POC Creatinine (0.6-1.3) mg/dl Est Cr Clr Drug Dosing ml/min Est GFR ( Amer) ml/min Est GFR (Non-Af Amer) ml/min BUN/Creatinine Ratio (10-20) Glucose (70-99(Fasting)) mg/dl POC Glucose 147 H (70-99) mg/dl POC Glucose (other) (70-99) mg/dl Estimat Average Glucose Hemoglobin A1c Calcium (8.6-10.3) mg/dl POC Ioniz Calcium Naldo (1.12-1.32) mmol/l Phosphorus (2.5-4.9) mg/dl Magnesium (1.7-2.4) mg/dl Total Bilirubin (0.2-1.0) mg/dl AST (13-39) U/L ALT (7-52) U/L Alkaline Phosphatase (34-104) U/L Total Creatine Kinase (26-192) U/L Troponin I High Sens 94965.5 H* D (0-14) pg/ml B-Natriuretic Peptide (0-100) pg/ml Total Protein (6.0-8.3) gm/dl Albumin (3.4-5.0) gm/dl Globulin (2.5-4.0) gm/dl Albumin/Globulin Ratio (0.9-2) Triglycerides (0-150) mg/dl Cholesterol (0-200) mg/dl LDL Cholesterol, Calc mg/dl VLDL Cholesterol, Calc (0-30) mg/dl HDL Cholesterol mg/dl Cholesterol/HDL Ratio (0-5) Lipase (11-82) U/L TSH (0.300-4.500) uIu/ml Nasal Screen MRSA (PCR) Negative (Negative) SARS-CoV-2, RNA, NAAT (NEGATIVE) 05/27/22 05/27/22 05/27/22 Range/Units 19:14 18:19 18:18 WBC (4.8-10.8) K/ul RBC (4.20-5.40) M/uL Hgb (12.0-16.0) g/dl POC Hgb 13.9 (12.0-16.0) g/dl Hct (37.0-47.0) % POC Hct 41 (37-47) % MCV (80.0-100.0) fL MCH (25.0-34.0) pg MCHC (32.0-36.0) g/dL RDW Std Deviation (36.4-46.3) fL RDW Coeff of Luis Antonio (11.5-14.5) % Plt Count (130-400) K/uL MPV (9.4-12.4) fL Immature Gran % (Auto) % Neut % (Auto) % Lymph % (Auto) % Free[place] % (Auto) % Eos % (Auto) % Baso % (Auto) % Neut # (Auto) (1.40-6.50) K/uL Lymph # (Auto) (1.2-3.4) K/uL [place] # (Auto) (0.11-0.59) K/uL Eos # (Auto) (0-0.50) K/uL Baso # (Auto) (0-0.2) K/uL Immature Gran # (Auto) (0.01-0.20) K/uL PT (9.0-12.0) Seconds INR (0.9-1.1) APTT (21.0-31.0) Seconds PTT Ratio Activ Coag Time Kaolin 299 H (94-140) SECONDS POC Sodium 143 (135-144) mmol/L Sodium (136-145) mmol/L POC Potassium 3.2 L (3.3-5.0) mmol/L Potassium (3.5-5.1) mmol/L POC Chloride 108 (101-112) mmol/L Chloride (98-107) mmol/L Carbon Dioxide (21-32) mmol/L POC Total CO2 24 (24-31) mmol/L Anion Gap (3-11) POC Anion Gap 16.0 (16-25) mmol/L POC BUN 13 (7-18) mg/dl BUN (6-23) mg/dl Creatinine (0.6-1.2) mg/dl POC Creatinine 0.8 (0.6-1.3) mg/dl Est Cr Clr Drug Dosing ml/min Est GFR ( Amer) ml/min Est GFR (Non-Af Amer) ml/min BUN/Creatinine Ratio (10-20) Glucose (70-99(Fasting)) mg/dl POC Glucose (70-99) mg/dl POC Glucose (other) 133 H (70-99) mg/dl Estimat Average Glucose Hemoglobin A1c Calcium (8.6-10.3) mg/dl POC Ioniz Calcium Naldo 1.12 (1.12-1.32) mmol/l Phosphorus (2.5-4.9) mg/dl Magnesium (1.7-2.4) mg/dl Total Bilirubin (0.2-1.0) mg/dl AST (13-39) U/L ALT (7-52) U/L Alkaline Phosphatase (34-104) U/L Total Creatine Kinase (26-192) U/L Troponin I High Sens (0-14) pg/ml B-Natriuretic Peptide (0-100) pg/ml Total Protein (6.0-8.3) gm/dl Albumin (3.4-5.0) gm/dl Globulin (2.5-4.0) gm/dl Albumin/Globulin Ratio (0.9-2) Triglycerides (0-150) mg/dl Cholesterol (0-200) mg/dl LDL Cholesterol, Calc mg/dl VLDL Cholesterol, Calc (0-30) mg/dl HDL Cholesterol mg/dl Cholesterol/HDL Ratio (0-5) Lipase (11-82) U/L TSH 2.680 (0.300-4.500) uIu/ml Nasal Screen MRSA (PCR) (Negative) SARS-CoV-2, RNA, NAAT (NEGATIVE) 05/27/22 05/27/22 05/27/22 Range/Units 18:18 18:18 18:18 WBC (4.8-10.8) K/ul RBC (4.20-5.40) M/uL Hgb (12.0-16.0) g/dl POC Hgb (12.0-16.0) g/dl Hct (37.0-47.0) % POC Hct (37-47) % MCV (80.0-100.0) fL MCH (25.0-34.0) pg MCHC (32.0-36.0) g/dL RDW Std Deviation (36.4-46.3) fL RDW Coeff of Luis Antonio (11.5-14.5) % Plt Count (130-400) K/uL MPV (9.4-12.4) fL Immature Gran % (Auto) % Neut % (Auto) % Lymph % (Auto) % Free[place] % (Auto) % Eos % (Auto) % Baso % (Auto) % Neut # (Auto) (1.40-6.50) K/uL Lymph # (Auto) (1.2-3.4) K/uL [place] # (Auto) (0.11-0.59) K/uL Eos # (Auto) (0-0.50) K/uL Baso # (Auto) (0-0.2) K/uL Immature Gran # (Auto) (0.01-0.20) K/uL PT 10.7 (9.0-12.0) Seconds INR 1.0 (0.9-1.1) APTT 23.6 (21.0-31.0) Seconds PTT Ratio 0.9 Activ Coag Time Kaolin (94-140) SECONDS POC Sodium (135-144) mmol/L Sodium 142 (136-145) mmol/L POC Potassium (3.3-5.0) mmol/L Potassium 3.2 L (3.5-5.1) mmol/L POC Chloride (101-112) mmol/L Chloride 112 H (98-107) mmol/L Carbon Dioxide 24 (21-32) mmol/L POC Total CO2 (24-31) mmol/L Anion Gap 6 (3-11) POC Anion Gap (16-25) mmol/L POC BUN (7-18) mg/dl BUN 14 (6-23) mg/dl Creatinine 0.80 (0.6-1.2) mg/dl POC Creatinine (0.6-1.3) mg/dl Est Cr Clr Drug Dosing 73.0 ml/min Est GFR ( Amer) 99.6 ml/min Est GFR (Non-Af Amer) 86.0 ml/min BUN/Creatinine Ratio 17.5 (10-20) Glucose 138 H (70-99(Fasting)) mg/dl POC Glucose (70-99) mg/dl POC Glucose (other) (70-99) mg/dl Estimat Average Glucose Hemoglobin A1c Calcium 8.4 L (8.6-10.3) mg/dl POC Ioniz Calcium Naldo (1.12-1.32) mmol/l Phosphorus (2.5-4.9) mg/dl Magnesium 2.1 (1.7-2.4) mg/dl Total Bilirubin 0.2 (0.2-1.0) mg/dl AST 21 (13-39) U/L ALT 21 (7-52) U/L Alkaline Phosphatase 110 H (34-104) U/L Total Creatine Kinase 48 (26-192) U/L Troponin I High Sens 38.8 H (0-14) pg/ml B-Natriuretic Peptide 43 (0-100) pg/ml Total Protein 6.3 (6.0-8.3) gm/dl Albumin 4.0 (3.4-5.0) gm/dl Globulin 2.3 L (2.5-4.0) gm/dl Albumin/Globulin Ratio 1.7 (0.9-2) Triglycerides (0-150) mg/dl Cholesterol (0-200) mg/dl LDL Cholesterol, Calc mg/dl VLDL Cholesterol, Calc (0-30) mg/dl HDL Cholesterol mg/dl Cholesterol/HDL Ratio (0-5) Lipase 43 (11-82) U/L TSH (0.300-4.500) uIu/ml Nasal Screen MRSA (PCR) (Negative) SARS-CoV-2, RNA, NAAT (NEGATIVE) 05/27/22 05/27/22 Range/Units 18:18 18:14 WBC 9.66 (4.8-10.8) K/ul RBC 4.09 L (4.20-5.40) M/uL Hgb 13.7 (12.0-16.0) g/dl POC Hgb (12.0-16.0) g/dl Hct 39.3 (37.0-47.0) % POC Hct (37-47) % MCV 96.1 (80.0-100.0) fL MCH 33.5 (25.0-34.0) pg MCHC 34.9 (32.0-36.0) g/dL RDW Std Deviation 44.2 (36.4-46.3) fL RDW Coeff of Luis Antonio 12.4 (11.5-14.5) % Plt Count 274 (130-400) K/uL MPV 11.6 (9.4-12.4) fL Immature Gran % (Auto) 0.3 % Neut % (Auto) 71.2 % Lymph % (Auto) 21.7 % Free[place] % (Auto) 4.0 % Eos % (Auto) 2.1 % Baso % (Auto) 0.7 % Neut # (Auto) 6.87 H (1.40-6.50) K/uL Lymph # (Auto) 2.10 (1.2-3.4) K/uL [place] # (Auto) 0.39 (0.11-0.59) K/uL Eos # (Auto) 0.20 (0-0.50) K/uL Baso # (Auto) 0.07 (0-0.2) K/uL Immature Gran # (Auto) 0.03 (0.01-0.20) K/uL PT (9.0-12.0) Seconds INR (0.9-1.1) APTT (21.0-31.0) Seconds PTT Ratio Activ Coag Time Kaolin (94-140) SECONDS POC Sodium (135-144) mmol/L Sodium (136-145) mmol/L POC Potassium (3.3-5.0) mmol/L Potassium (3.5-5.1) mmol/L POC Chloride (101-112) mmol/L Chloride (98-107) mmol/L Carbon Dioxide (21-32) mmol/L POC Total CO2 (24-31) mmol/L Anion Gap (3-11) POC Anion Gap (16-25) mmol/L POC BUN (7-18) mg/dl BUN (6-23) mg/dl Creatinine (0.6-1.2) mg/dl POC Creatinine (0.6-1.3) mg/dl Est Cr Clr Drug Dosing ml/min Est GFR ( Amer) ml/min Est GFR (Non-Af Amer) ml/min BUN/Creatinine Ratio (10-20) Glucose (70-99(Fasting)) mg/dl POC Glucose (70-99) mg/dl POC Glucose (other) (70-99) mg/dl Estimat Average Glucose Hemoglobin A1c Calcium (8.6-10.3) mg/dl POC Ioniz Calcium Naldo (1.12-1.32) mmol/l Phosphorus (2.5-4.9) mg/dl Magnesium (1.7-2.4) mg/dl Total Bilirubin (0.2-1.0) mg/dl AST (13-39) U/L ALT (7-52) U/L Alkaline Phosphatase (34-104) U/L Total Creatine Kinase (26-192) U/L Troponin I High Sens (0-14) pg/ml B-Natriuretic Peptide (0-100) pg/ml Total Protein (6.0-8.3) gm/dl Albumin (3.4-5.0) gm/dl Globulin (2.5-4.0) gm/dl Albumin/Globulin Ratio (0.9-2) Triglycerides (0-150) mg/dl Cholesterol (0-200) mg/dl LDL Cholesterol, Calc mg/dl VLDL Cholesterol, Calc (0-30) mg/dl HDL Cholesterol mg/dl Cholesterol/HDL Ratio (0-5) Lipase (11-82) U/L TSH (0.300-4.500) uIu/ml Nasal Screen MRSA (PCR) (Negative) SARS-CoV-2, RNA, NAAT NEGATIVE (NEGATIVE) Medications Administered Current Inpatient Medications Acetaminophen (Acetaminophen 325 Mg Tab) 650 mg PO Q4H PRN PRN Reason: MILD Pain (Scale 1,2,3) Stop: 06/26/22 19:22 Aspirin (Aspirin 81 Mg Ectab) 81 mg PO [facility] Stop: 06/27/22 08:59 Last Admin: 05/28/22 07:31 Dose: 81 mg Bupropion HCl ([facility]ropion Xl 300 Mg Tabcr) [facility]: 06/27/22 08:59 Last Admin: 05/28/22 07:31 Dose: 300 mg Carbidopa/Levodopa (Carbidopa/Levodopa 25/100mg Tab Odt) 1 tab PO TID [facility] Stop: 06/26/22 20:59 Last Admin: 05/28/22 07:31 Dose: 1 tab Heparin Sodium (Porcine) (Heparin Sod 5,000 Unit/0.5 Ml Vial) 5,000 units SQ Q12 [facility] Stop: 06/27/22 08:59 Last Admin: 05/28/22 07:31 Dose: 5,000 units Lorazepam (Lorazepam 1 Mg Tab) 1 mg PO BID PRN PRN Reason: Anxiety Stop: 06/26/22 20:46 Miscellaneous (Icu Protocol For Hyperglycemia) 1 each N/A ACHS [facility] Stop: 05/29/22 20:59 Last Admin: 05/28/22 07:30 Dose: 1 each Miscellaneous (Caplypta 42mg - Order Awaiting Action) 1 each N/A QS [facility] Stop: 06/27/22 00:00 Last Admin: 05/28/22 07:29 Dose: Not Given Ondansetron HCl (Ondansetron Inj 2 Mg/Ml 2 Ml Vial) 4 mg IV Q6H PRN PRN Reason: Nausea And Vomiting Stop: 06/26/22 19:22 Pantoprazole Sodium (Pantoprazole 40 Mg Tab) 40 mg PO QAM [facility] Stop: 06/27/22 08:59 Last Admin: 05/28/22 07:31 Dose: 40 mg Rosuvastatin Calcium (Rosuvastatin Calcium 20 Mg Tab) 20 mg PO QAM [facility] Stop: 06/27/22 08:59 Last Admin: 05/28/22 07:31 Dose: 20 mg Sertraline HCl (Sertraline Hcl 100 Mg Tablet) 100 mg PO QAM [facility] Stop: 06/27/22 08:59 Last Admin: 05/28/22 07:31 Dose: 100 mg Ticagrelor (Ticagrelor 90 Mg Tab) 90 mg PO BID [facility] Stop: 06/27/22 08:59 Last Admin: 05/28/22 07:31 Dose: 90 mg
[2022-05-28 08:26] LABS: Estimated Average Glucose 108 mg/dl; Hemoglobin A1C 5.4 % (4.5-5.6)
--- NOTE | 2022-05-28 09:04 | Critical Care Progress Note ---
Date of Service May 28, 2022 Assessment & Plan (1) Dyslipidemia: (2) Chest pain: (3) ST elevation (STEMI) myocardial infarction: (4) HTN (hypertension): (5) CAD (coronary artery disease): (6) DVT prophylaxis: (7) Bipolar disorder: Plan Emiliana is a 52 year-old female with medical history of bipolar disorder, tobacco use, coronary artery disease (s/p stent in 2017 and 2019), presents to the ICU following inferior STEMI where she received successful PCI with SARAH to the RCA. 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 Per cardiology plan to start MARIELA inhibitor/restart Metoprolol once HR/BP increases Respiratory - Tobacco Use * Required 2L NC yesterday/overnight * Breathing comfortably on room air * Current smoker. Continue Wellbutrin and encourage smoking cessation. GI - * Diet: Heart Healthy * AST, ALT, liver function WNL * Pantoprazole QAM Renal/Lytes - * Potassium 4.1, Phosphorous 4.3, Magnesium 1.9 (ordered 1g mag sulfate) * Replete electrolytes as needed - * Monitor I's & O's Endo - * Follow ICU hyperglycemic protocols Heme - * Hemoglobin stable 12.1 ID - * No concerns for infection at this time Lines/IV Access - * Peripheral IV intact DVT Prophylaxis - * SubQ Heparin Thank you for allowing us to be a part of this patient's care. Please refer to Dr. Galvez's documentation for additional recommendations. Admission and Anticipated Discharge Date Admission Date: May 27, 2022 Supervising Physician Co-Signing Physician Notes Patient status post PCI with drug-eluting stent to RCA. Hemodynamically stable. Okay for downgrade. Subjective Patient was seen and examined at bedside. Emiliana is s/p cardiac catheterization with stent placement. She states she is feeling well today, denies pain at wrist site. Denies chest pain, shortness of breath, dizziness/weakness, abdominal pain, nausea/vomiting. Has been eating and drinking without issue. Patient notes that she stopped taking her home Metoprolol about 3 weeks ago as it made her feel very tired and dizzy- she states they originally reduced her dosage to half a tablet but her symptoms didn't improve so she stopped taking it all together. Review of Systems Review of Systems: As per above Physical Exam Constitutional: WD/WN, vitals as above Eyes: Anicteric sclera ENMT: External ear and nose normal. Moist mucous membranes. Respiratory: normal respiratory effort, lungs clear to auscultation Cardiovascular: Regular rhythm, bradycardic rate. No murmur, rub, gallop. No lower extremity edema. Gastrointestinal (Abdomen): Abdomen soft, nontender, nondistended. No masses palpated. Musculoskeletal: Ambulates easily, able to move limbs independently. Skin: no rashes, warm and dry Psychiatric: A+Ox3, euthymic affect Results & Data Results & Data Vital Signs (Past 12 Hours) Vital Signs Temp Pulse Resp BP Pulse Ox O2 Del Method O2 Flow Rate 05/28/22 08:00 59 L 05/28/22 06:30 59 L 19 96 05/28/22 06:20 59 L 18 94 05/28/22 06:10 58 L 17 97 05/28/22 06:00 58 L 18 96 05/28/22 06:00 130/87 05/28/22 05:50 59 L 19 94 05/28/22 05:40 57 L 19 97 05/28/22 05:30 56 L 17 96 05/28/22 05:20 65 18 93 05/28/22 05:10 64 18 98 05/28/22 05:06 134/93 05/28/22 05:06 64 12 05/28/22 05:00 54 L 17 95 05/28/22 04:50 60 17 95 05/28/22 04:40 56 L 22 95 05/28/22 04:30 56 L 18 95 05/28/22 04:20 55 L 16 96 05/28/22 04:10 63 20 100 05/28/22 04:00 58 L 17 95 05/28/22 04:00 121/87 05/28/22 03:50 57 L 18 94 05/28/22 03:40 56 L 18 93 05/28/22 03:30 58 L 18 94 05/28/22 03:20 58 L 19 93 05/28/22 03:10 62 20 94 05/28/22 03:00 58 L 18 95 05/28/22 03:00 131/81 05/28/22 02:50 68 17 94 05/28/22 02:40 63 18 92 05/28/22 02:30 69 18 95 05/28/22 02:20 64 17 96 05/28/22 02:10 58 L 17 95 05/28/22 02:00 59 L 17 96 05/28/22 02:00 117/79 05/28/22 01:50 57 L 14 97 05/28/22 01:40 59 L 17 96 05/28/22 01:30 62 16 96 05/28/22 01:20 62 16 95 05/28/22 01:10 58 L 17 95 05/28/22 01:00 54 L 17 93 05/28/22 01:00 119/76 05/28/22 00:50 76 17 98 05/28/22 00:40 59 L 18 96 05/28/22 00:30 62 18 96 05/28/22 00:20 60 16 95 05/28/22 00:10 61 18 95 05/28/22 00:00 63 16 95 05/28/22 00:00 112/70 05/27/22 23:50 70 17 94 05/27/22 23:40 65 17 96 05/28/22 04:00 36.7 C 05/27/22 23:36 68 05/27/22 23:30 65 17 94 05/27/22 23:20 64 19 95 05/27/22 23:10 72 22 94 05/27/22 23:07 105/72 05/27/22 23:07 71 22 95 05/27/22 23:00 75 22 94 05/27/22 22:50 76 14 97 05/27/22 22:45 85 25 H 96 05/27/22 22:45 123/69 05/27/22 22:40 75 28 H 97 05/27/22 22:30 81 18 98 05/27/22 22:30 124/63 05/27/22 22:20 72 22 98 05/27/22 22:15 116/65 05/27/22 22:15 97 H 29 H 98 05/27/22 22:10 75 23 98 05/27/22 22:00 79 21 96 05/27/22 22:00 118/66 05/27/22 21:50 79 25 H 98 05/27/22 21:50 117/70 05/27/22 21:40 69 20 99 05/27/22 21:31 73 18 98 05/27/22 21:31 119/93 05/27/22 21:30 73 21 99 05/27/22 21:20 72 19 99 05/27/22 21:10 72 17 98 05/27/22 23:00 36.6 C 05/27/22 22:07 Nasal Cannula 2 Diagnostic Findings Chest X-Ray 05/27/22 21:16 XR chest 1V portable HISTORY: Hypoxia. COMPARISON: 07/12/2021. FINDINGS: No pneumothorax. No pleural effusions. The heart is normal in size. No acute rib fractures. Mild diffuse interstitial thickening. No new focal lung consolidations. IMPRESSION: Mild diffuse interstitial thickening. This may be chronic or represent developing congestive change. ACT 112: Negative or not required by law. Electronically signed by: Dustin Harris M.D. 05/28/2022 7:03 AM Resident Activity Tracking Resident Involvement: Resident Care Provided Care Provided: Adult Hospital Medicine
[2022-05-28] MEDS ORDERED: MAGNESIUM SULFATE / D5W 1 GM/100 ML BAG IV SCH (10:00)
--- NOTE | 2022-05-28 13:16 | Electrocardiogram Report ---
Test Reason : Blood Pressure : / mmHG Vent. Rate : 070 BPM Atrial Rate : 070 BPM P-R Int : 206 ms QRS Dur : 098 ms QT Int : 416 ms P-R-T Axes : 064 065 102 degrees QTc Int : 449 ms Age and gender specific ECG analysis Normal sinus rhythm with sinus arrhythmia ST elevation consider inferior injury or acute infarct ST elevation consider anterior injury or acute infarct ACUTE ND / STEMI Consider right ventricular involvement in acute inferior infarct Abnormal ECG When compared with ECG of 12-JUL-2021 12:16, Significant changes have occurred Confirmed by Oleg Ghosh ([id number]) on 05/28/2022 1:16:02 PM Referred By: REFERRED SELF Confirmed By:Oleg Ghosh
--- NOTE | 2022-05-28 13:26 | Electrocardiogram Report ---
Test Reason : Blood Pressure : / mmHG Vent. Rate : 068 BPM Atrial Rate : 068 BPM P-R Int : 154 ms QRS Dur : 086 ms QT Int : 402 ms P-R-T Axes : 057 044 043 degrees QTc Int : 427 ms Normal sinus rhythm Early repolarization Otherwise Normal ECG When compared with ECG of 27-MAY-2022 18:11, (unconfirmed) Significant changes have occurred Confirmed by Oleg Ghosh ([id number]) on 05/28/2022 1:26:29 PM Referred By: REFERRED SELF Confirmed By:Oleg Ghosh
--- NOTE | 2022-05-28 13:38 | Cardiology Progress Note ---
Date of Service May 28, 2022 Assessment & Plan (1) ST elevation (STEMI) myocardial infarction: (2) HTN (hypertension): (3) Chest pain: (4) Dyslipidemia: (5) Bipolar disorder: (6) CAD (coronary artery disease): Plan Patient presented on 05/27/2022 in the setting of inferior wall ST segment elevation [place] Underwent successful PCI to the RCA Post cath echo shows preserved LV systolic function with only mild inferior wall hypokinesis Patient bradycardic and borderline hypotensive at baseline so unable to add beta-faustina Continue dual antiplatelet therapy with aspirin and Brilinta Monitor in ICU for 24 hours after presentation and then telemetry for an additional 48 hours The need for absolute smoking cessation was reviewed with the patient and she states that she is now had her last cigarette. Admission and Anticipated Discharge Date Admission Date: May 27, 2022 Subjective Patient seen and examined. Chart reviewed. Telemetry reviewed. Currently without complaint. States his chest discomfort resolved during catheterization. Review of Systems Review of Systems: All systems reviewed & are unremarkable except as noted in HPI & below Physical Exam Physical Exam: General: Awake, alert and oriented x 3. No acute distress. HEENT: Normocephalic, atraumatic. Pupils equal, round and reactive to light and accommodation. Extraocular muscles are intact. Anicteric sclera. Moist mucous membranes. Neck: No JVD. No bruit. Cardiovascular: Regular. Positive S-4. Normal S-1 and S-2. No S-3. No murmurs or rubs. Pulmonary: Clear to auscultation B/L. No rales, rhonchi or wheezing Abdomen: Bowel sounds x 4, soft. No rebound, guarding or tenderness. No organomegaly. Extremities: No clubbing, cyanosis or edema. +2 pedal pulses bilaterally. Skin: Warm and dry. Results & Data Vital Signs (Past 12 Hours) Vital Signs Temp Pulse Pulse Resp BP BP Pulse Ox 05/28/22 11:15 57 L 05/28/22 11:14 64 16 104/65 97 05/28/22 09:00 57 L 24 05/28/22 08:00 71 21 05/28/22 07:41 122/66 05/28/22 07:41 67 16 97 05/28/22 07:00 67 20 96 05/28/22 07:00 139/92 05/28/22 08:00 59 L 05/28/22 06:30 59 L 19 96 05/28/22 06:20 59 L 18 94 05/28/22 06:10 58 L 17 97 05/28/22 06:00 58 L 18 96 05/28/22 06:00 130/87 05/28/22 05:50 59 L 19 94 05/28/22 05:40 57 L 19 97 05/28/22 05:30 56 L 17 96 05/28/22 05:20 65 18 93 05/28/22 05:10 64 18 98 05/28/22 05:06 134/93 05/28/22 05:06 64 12 05/28/22 05:00 54 L 17 95 05/28/22 04:50 60 17 95 05/28/22 04:40 56 L 22 95 05/28/22 04:30 56 L 18 95 05/28/22 04:20 55 L 16 96 05/28/22 04:10 63 20 100 05/28/22 04:00 58 L 17 95 05/28/22 04:00 121/87 05/28/22 03:50 57 L 18 94 05/28/22 03:40 56 L 18 93 05/28/22 03:30 58 L 18 94 05/28/22 03:20 58 L 19 93 05/28/22 03:10 62 20 94 05/28/22 03:00 58 L 18 95 05/28/22 03:00 131/81 05/28/22 02:50 68 17 94 05/28/22 02:40 63 18 92 05/28/22 02:30 69 18 95 05/28/22 02:20 64 17 96 05/28/22 02:10 58 L 17 95 05/28/22 02:00 59 L 17 96 05/28/22 02:00 117/79 05/28/22 01:50 57 L 14 97 05/28/22 01:40 59 L 17 96 05/28/22 04:00 36.7 C O2 Del Method 05/28/22 11:15 05/28/22 11:14 Room Air 05/28/22 09:00 05/28/22 08:00 05/28/22 07:41 05/28/22 07:41 Room Air 05/28/22 07:00 05/28/22 07:00 05/28/22 08:00 05/28/22 06:30 05/28/22 06:20 05/28/22 06:10 05/28/22 06:00 05/28/22 06:00 05/28/22 05:50 05/28/22 05:40 05/28/22 05:30 05/28/22 05:20 05/28/22 05:10 05/28/22 05:06 05/28/22 05:06 05/28/22 05:00 05/28/22 04:50 05/28/22 04:40 05/28/22 04:30 05/28/22 04:20 05/28/22 04:10 05/28/22 04:00 05/28/22 04:00 05/28/22 03:50 05/28/22 03:40 05/28/22 03:30 05/28/22 03:20 05/28/22 03:10 05/28/22 03:00 05/28/22 03:00 05/28/22 02:50 05/28/22 02:40 05/28/22 02:30 05/28/22 02:20 05/28/22 02:10 05/28/22 02:00 05/28/22 02:00 05/28/22 01:50 05/28/22 01:40 05/28/22 04:00
--- NOTE | 2022-05-28 15:16 | Billing Data ---
Date of Service May 28, 2022 Coding Level of Care Code 35054 SUB INP/OBS CARE
[2022-05-28] MEDS ORDERED: CAPLYTA 42 MG PO SCH (21:00)
[2022-05-29 04:42] LABS: Basophils # (auto) 0.04 K/uL (0-0.2); Basophils % (auto) 0.7 %; Eosinophils # (auto) 0.16 K/uL (0-0.50); Eosinophils % (auto) 2.7 %; Hematocrit (blood only) 34.2 % (37.0-47.0); Hemoglobin 11.3 g/dl (12.0-16.0); Immature Granulocytes # (auto) 0.01 K/uL (0.01-0.20); Immature Granulocytes % (auto) 0.2 %; Lymphocytes % (auto) 36.9 %; Mean Corpuscular Hemoglobin 32.8 pg (25.0-34.0); Mean Corpuscular Volume 99.1 fL (80.0-100.0); Mean Platelet Volume 11.9 fL (9.4-12.4); Monocytes # (auto) 0.36 K/uL (0.11-0.59); Neutrophils # (auto) 3.19 K/uL (1.40-6.50); Neutrophils % (auto) 53.5 %; Platelet Count 189 K/uL (130-400); RDW Coefficient of Variation 13.2 % (11.5-14.5); RDW Standard Deviation 47.3 fL (36.4-46.3); Red Blood Count 3.45 M/uL (4.20-5.40); White Blood Count 5.96 K/ul (4.8-10.8)
[2022-05-29 04:53] LABS: BUN Creatinine Ratio 17.3 (10-20); Calcium 8.3 mg/dl (8.6-10.3); Creatinine Clr Calc Pharmacy 75.7 ml/min; Est GFR (African American) 107.7 ml/min; Est GFR (Non-African American) 92.9 ml/min; Magnesium 2.2 mg/dl (1.7-2.4); Phosphorus 3.7 mg/dl (2.5-4.9); Potassium 3.7 mmol/L (3.5-5.1)
[2022-05-29] MEDS: SERTRALINE HCL 100 MG TABLET PO SCH (07:51)
[2022-05-29] MEDS: ROSUVASTATIN CALCIUM 20 MG TAB PO SCH (07:51)
[2022-05-29] MEDS: ASPIRIN 81 MG ECTAB PO SCH (07:51)
[2022-05-29] MEDS: buPROPion XL 300 MG TABCR PO SCH (07:51)
[2022-05-29] MEDS: CARBIDOPA/LEVODOPA 25/100MG TAB ODT PO SCH (07:51)
[2022-05-29] MEDS: PANTOprazole 40 MG TAB PO SCH (07:52)
[2022-05-29] MEDS: TICAGRELOR 90 MG TAB PO SCH (07:52)
[2022-05-29] MEDS: HEPARIN SOD 5,000 UNIT/0.5 ML VIAL SQ SCH (07:52)
[2022-05-29] MEDS: ICU Protocol for HYPERglycemia SCH (08:00)
--- NOTE | 2022-05-29 11:48 | Hospitalist Progress Note ---
Date of Service May 29, 2022 Assessment & Plan (1) ST elevation (STEMI) myocardial infarction: (2) HTN (hypertension): (3) CAD (coronary artery disease): (4) Bipolar disorder: (5) Tobacco abuse: (6) Dyslipidemia: Plan: This is a 52yo F with PMH of CAD (s/p PCI to LAD in 2018, OM1 in 2020), HTN, dyslipidemia, tobacco use disorder, mood disorder and other medical problems listed below who presented as a heart alert and is s/p PCI by Dr. Whelan. Inferoposterior STEMI s/p SARAH to RCA History of CAD Presented as a heart alert with CP starting at 1615, EKG with ST elevations in inferior leads, ST depressions in V1, V2 and elevation in V3 S/p successful PCI to prox. RCA by Dr. Whelan Transient hypotension/bradycardia during PCI- Currently resolved Recovering in ICU, comfortable and asymptomatic Per cardiology: continue dual antiplatelet therapy for at least 1 year (ASA + Brillinta), high dose statin (rosuvastatin increased to 20 mg daily) resume home beta-faustina, add nani as BP allows - BP on lower side -> therefore will not resume beta faustina at this time Echo checked - Normal LV chamber size and wall thickness. Normal LV systolic function, EF 55 to 60%. Mild hypokinesis of the inferior wall with otherwise normal wall motion. Grade 2 diastolic dysfunction. Aortic valve sclerosis mild, without significant aortic valvular stenosis Hypoxemic respiratory failure- resolved Underlying pulmonary hypertension from TTE from 2019 Rule out pulmonary congestion Currently on RA, clinically much improved HTN Patient recently stopped her beta faustina due to feeling lightheaded hold beta faustina, BP on lower side Tobacco use disorder Continues to smoke 0.5-1 ppd. Smoking cessation counseling provided. Bipolar disorder, anxiety Continue home Caplyta, bupropion, buspirone, lorazepam PRN Admission and Anticipated Discharge Date Admission Date: May 27, 2022 Subjective Pt seen in follow up of STEMI, s/p PCI with SARAH to RCA Currently sitting up in chair, in no acute distress Denies any chest pain palpitations shortness of breath Reports she has been ambulatory in her room No fevers chills abdominal pain nausea or vomiting Discussed with cardiology - ok to DC home Review of Systems Review of Systems: All systems reviewed & are unremarkable except as noted in Subjective Physical Exam Physical Exam: General: WD/WN F in no acute distress. HEENT: Normocephalic, atraumatic.EOMI, PERRL Neck: No JVD. No bruit. Cardiovascular: Regular. No murmurs or rubs. Pulmonary: Clear to auscultation B/L. No rales, rhonchi or wheezing Abdomen: Bowel sounds x 4, soft. No rebound, guarding or tenderness. Extremities: No LE edema, moves extremities Neuro: Awake, alert and oriented x 3. Speech fluent, no facial asymmetry, moves extremities Skin: Warm and dry Results & Data Results & Data Vital Signs (Past 12 Hours) Vital Signs Temp Pulse Pulse Resp BP BP Pulse Ox 05/29/22 11:00 36.6 C 72 18 92/45 L 97 05/29/22 07:00 88 05/29/22 08:00 05/29/22 07:00 36.6 C 88 18 98/60 L 96 05/29/22 04:06 36.6 C 93 05/29/22 04:20 59 L 25 H 05/29/22 04:10 58 L 18 05/29/22 04:06 68 19 93 05/29/22 04:06 95/63 L 05/29/22 04:00 74 20 05/29/22 03:50 78 15 05/29/22 03:40 71 14 05/29/22 03:30 57 L 20 05/29/22 03:20 56 L 19 05/29/22 03:10 57 L 13 05/29/22 03:00 56 L 17 05/29/22 02:50 60 18 05/29/22 02:40 61 15 05/29/22 02:30 59 L 15 05/29/22 02:20 58 L 20 05/29/22 02:10 58 L 14 05/29/22 02:00 52 L 15 05/29/22 01:50 54 L 20 05/29/22 01:40 54 L 17 05/29/22 01:30 58 L 20 05/29/22 01:20 59 L 20 05/29/22 01:10 63 15 05/29/22 01:00 62 19 05/29/22 00:50 68 15 05/29/22 00:40 70 18 05/29/22 00:30 69 15 05/29/22 00:20 76 16 05/29/22 00:10 70 18 05/29/22 00:00 63 14 05/28/22 23:50 60 14 O2 Del Method 05/29/22 11:00 Room Air 05/29/22 07:00 05/29/22 08:00 Room Air 05/29/22 07:00 Room Air 05/29/22 04:06 Room Air 05/29/22 04:20 05/29/22 04:10 05/29/22 04:06 05/29/22 04:06 05/29/22 04:00 05/29/22 03:50 05/29/22 03:40 05/29/22 03:30 05/29/22 03:20 05/29/22 03:10 05/29/22 03:00 05/29/22 02:50 05/29/22 02:40 05/29/22 02:30 05/29/22 02:20 05/29/22 02:10 05/29/22 02:00 05/29/22 01:50 05/29/22 01:40 05/29/22 01:30 05/29/22 01:20 05/29/22 01:10 05/29/22 01:00 05/29/22 00:50 05/29/22 00:40 05/29/22 00:30 05/29/22 00:20 05/29/22 00:10 05/29/22 00:00 05/28/22 23:50 Laboratory Results 05/29/22 05/29/22 05/28/22 Range/Units 04:01 04:01 15:00 WBC 5.96 (4.8-10.8) K/ul RBC 3.45 L (4.20-5.40) M/uL Hgb 11.3 L (12.0-16.0) g/dl Hct 34.2 L (37.0-47.0) % MCV 99.1 (80.0-100.0) fL MCH 32.8 (25.0-34.0) pg MCHC 33.0 (32.0-36.0) g/dL RDW Std Deviation 47.3 H (36.4-46.3) fL RDW Coeff of Luis Antonio 13.2 (11.5-14.5) % Plt Count 189 (130-400) K/uL MPV 11.9 (9.4-12.4) fL Immature Gran % (Auto) 0.2 % Neut % (Auto) 53.5 % Lymph % (Auto) 36.9 % [place] % (Auto) 6.0 % Eos % (Auto) 2.7 % Baso % (Auto) 0.7 % Neut # (Auto) 3.19 (1.40-6.50) K/uL Lymph # (Auto) 2.20 (1.2-3.4) K/uL [place] # (Auto) 0.36 (0.11-0.59) K/uL Eos # (Auto) 0.16 (0-0.50) K/uL Baso # (Auto) 0.04 (0-0.2) K/uL Immature Gran # (Auto) 0.01 (0.01-0.20) K/uL Sodium 142 (136-145) mmol/L Potassium 3.7 (3.5-5.1) mmol/L Chloride 113 H (98-107) mmol/L Carbon Dioxide 24 (21-32) mmol/L Anion Gap 5 (3-11) BUN 13 (6-23) mg/dl Creatinine 0.75 (0.6-1.2) mg/dl Est Cr Clr Drug Dosing 75.7 ml/min Est GFR ( Amer) 107.7 ml/min Est GFR (Non-Af Amer) 92.9 ml/min BUN/Creatinine Ratio 17.3 (10-20) Glucose 98 (70-99(Fasting)) mg/dl Calcium 8.3 L (8.6-10.3) mg/dl Phosphorus 3.7 (2.5-4.9) mg/dl Magnesium 2.2 (1.7-2.4) mg/dl Troponin I High Sens 92436.6 H* D (0-14) pg/ml Medications Administered Current Inpatient Medications Acetaminophen (Acetaminophen 325 Mg Tab) 650 mg PO Q4H PRN PRN Reason: MILD Pain (Scale 1,2,3) Stop: 06/26/22 19:22 Aspirin (Aspirin 81 Mg Ectab) [facility] [place] Stop: 06/27/22 08:59 Last Admin: 05/29/22 07:51 Dose: 81 mg Bupropion HCl (Bupropion Xl 300 Mg Tabcr) 300 mg PO QAM [facility] Stop: 06/27/22 08:59 Last Admin: 05/29/22 07:51 Dose: 300 mg Carbidopa/Levodopa (Carbidopa/Levodopa 25/100mg Tab Odt) 1 tab PO TID [facility] Stop: 06/26/22 20:59 Last Admin: 05/29/22 07:51 Dose: 1 tab Heparin Sodium (Porcine) (Heparin Sod 5,000 Unit/0.5 Ml Vial) 5,000 units SQ Q12 [facility] Stop: 06/27/22 08:59 Last Admin: 05/29/22 07:52 Dose: 5,000 units Lorazepam (Lorazepam 1 Mg Tab) 1 mg PO BID PRN PRN Reason: Anxiety Stop: 06/26/22 20:46 Caplyta 42mg Capsule -Non-Formulary Patient's Own Med 1 each PO HS [facility] Stop: 06/27/22 20:59 Last Admin: 05/28/22 20:08 Dose: 1 cap Ondansetron HCl (Ondansetron Inj 2 Mg/Ml 2 Ml Vial) 4 mg IV Q6H PRN PRN Reason: Nausea And Vomiting Stop: 06/26/22 19:22 Pantoprazole Sodium (Pantoprazole 40 Mg Tab) 40 mg PO QAM [facility] Stop: 06/27/22 08:59 Last Admin: 05/29/22 07:52 Dose: 40 mg Rosuvastatin Calcium (Rosuvastatin Calcium 20 Mg Tab) 20 mg PO QAM [facility] Stop: 06/27/22 08:59 Last Admin: 05/29/22 07:51 Dose: 20 mg Sertraline HCl (Sertraline Hcl 100 Mg Tablet) 100 mg PO QAM [facility] Stop: 06/27/22 08:59 Last Admin: 05/29/22 07:51 Dose: 100 mg Ticagrelor (Ticagrelor 90 Mg Tab) 90 mg PO BID [facility] Stop: 06/27/22 08:59 Last Admin: 05/29/22 07:52 Dose: 90 mg
--- NOTE | 2022-05-29 12:01 | Cardiology Progress Note ---
Date of Service May 29, 2022 Assessment & Plan (1) ST elevation (STEMI) myocardial infarction: (2) HTN (hypertension): (3) Chest pain: (4) Dyslipidemia: (5) Bipolar disorder: (6) CAD (coronary artery disease): Plan Patient presented on 05/27/2022 in the setting of inferior wall ST segment elevation [place] Underwent successful PCI to the RCA Post cath echo shows preserved LV systolic function with only mild inferior wall hypokinesis Patient bradycardic and borderline hypotensive at baseline so unable to add beta-faustina Continue dual antiplatelet therapy with aspirin and Brilinta no arrhythmias on monitor pt very anxious for discharge ok to discharge from cardiac standpoint will arrange f/u in 2-4 weeks The need for absolute smoking cessation was reviewed with the patient and she states that she is now had her last cigarette. Admission and Anticipated Discharge Date Admission Date: May 27, 2022 Subjective Pt seen and examined. Chart reviewed. Tele reviewed. No complaints. Anxious for discharge. Review of Systems Review of Systems: All systems reviewed & are unremarkable except as noted in HPI & below Physical Exam Physical Exam: General: Awake, alert and oriented x 3. No acute distress. HEENT: Normocephalic, atraumatic. Pupils equal, round and reactive to light and accommodation. Extraocular muscles are intact. Anicteric sclera. Moist mucous membranes. Neck: No JVD. No bruit. Cardiovascular: Regular. Positive S-4. Normal S-1 and S-2. No S-3. No murmurs or rubs. Pulmonary: Clear to auscultation B/L. No rales, rhonchi or wheezing Abdomen: Bowel sounds x 4, soft. No rebound, guarding or tenderness. No organomegaly. Extremities: No clubbing, cyanosis or edema. +2 pedal pulses bilaterally. Skin: Warm and dry. Results & Data Vital Signs (Past 12 Hours) Vital Signs Temp Pulse Pulse Resp BP BP Pulse Ox 05/29/22 11:20 98/59 L 05/29/22 11:00 36.6 C 72 18 92/45 L 97 05/29/22 07:00 88 05/29/22 08:00 05/29/22 07:00 36.6 C 88 18 98/60 L 96 05/29/22 04:06 36.6 C 93 05/29/22 04:20 59 L 25 H 05/29/22 04:10 58 L 18 05/29/22 04:06 68 19 93 05/29/22 04:06 95/63 L 05/29/22 04:00 74 20 05/29/22 03:50 78 15 05/29/22 03:40 71 14 05/29/22 03:30 57 L 20 05/29/22 03:20 56 L 19 05/29/22 03:10 57 L 13 05/29/22 03:00 56 L 17 05/29/22 02:50 60 18 05/29/22 02:40 61 15 05/29/22 02:30 59 L 15 05/29/22 02:20 58 L 20 05/29/22 02:10 58 L 14 05/29/22 02:00 52 L 15 05/29/22 01:50 54 L 20 05/29/22 01:40 54 L 17 05/29/22 01:30 58 L 20 05/29/22 01:20 59 L 20 05/29/22 01:10 63 15 05/29/22 01:00 62 19 05/29/22 00:50 68 15 05/29/22 00:40 70 18 05/29/22 00:30 69 15 05/29/22 00:20 76 16 05/29/22 00:10 70 18 O2 Del Method 05/29/22 11:20 05/29/22 11:00 Room Air 05/29/22 07:00 05/29/22 08:00 Room Air 05/29/22 07:00 Room Air 05/29/22 04:06 Room Air 05/29/22 04:20 05/29/22 04:10 05/29/22 04:06 05/29/22 04:06 05/29/22 04:00 05/29/22 03:50 05/29/22 03:40 05/29/22 03:30 05/29/22 03:20 05/29/22 03:10 05/29/22 03:00 05/29/22 02:50 05/29/22 02:40 05/29/22 02:30 05/29/22 02:20 05/29/22 02:10 05/29/22 02:00 05/29/22 01:50 05/29/22 01:40 05/29/22 01:30 05/29/22 01:20 05/29/22 01:10 05/29/22 01:00 05/29/22 00:50 05/29/22 00:40 05/29/22 00:30 05/29/22 00:20 05/29/22 00:10
--- NOTE | 2022-05-29 13:28 | Discharge Summary ---
Date of Service May 29, 2022 Admission HPI Per Admitting Provider This is a 52yo F with PMH of CAD (s/p PCI to LAD in 2018, OM1 in 2019), HTN, dyslipidemia, tobacco use disorder, mood disorder and other medical problems listed below who presented as a heart alert and is s/p PCI by Dr. Whelan. Patent was cleaning out her dog kennel earlier this afternoon around 1615 when she developed substernal chest pain with associated nausea and diaphoresis. Endorse 1 episode of vomiting prior to arrival. Pain was similar to previous episodes from which she required stent placement although states this pain was more severe. ECG obtained when EMS arrived was consistent with an inferior DC. Follows with Dr. Ferrari for cardiology. Evaluated post-cath in room 104. No longer experiencing chest pain or nausea. Comfortable at rest. Did become temporarily bradycardic and hypotensive in the Risk Developer and was temporarily on Levophed drip which is now been discontinued. Most recent BP 123/75. Denies any fever, chills, lightheadedness, chest pain, shortness of breath, nausea, vomiting, abdominal pain, dysuria, diarrhea or constipation. Still smoking 0.5-1 ppd. Admission Exam Per Admitting Provider General Appearance:WD/WN, vitals as above, NAD, sitting up in bed, pleasant, conversing easily Head: normocephalic, atraumatic Eyes:normal inspection, PERRL, conjunctivae normal, anicteric sclerae ENT: external ear and nose normal, oropharynx normal Neck: normal visual inspection, trachea midline, no thyromegaly Respiratory:normal respiratory effort, lungs clear to auscultation, no wheeze, rales, rhonchi. No accessory muscle use Cardiovascular: regular rate, rhythm, no murmur, normal peripheral pulses, no BLE edema. Vessels: no JVD Chest: normal inspection of chest Abdomen/GI: normal bowel sounds, soft, nontender, no hepatosplenomegaly Extremities/Musculoskeletal: no cyanosis or clubbing, extremities motor strength 5/5. R wrist guard Neurologic: PERRL, EOMI, accommodation nl, no face palsy, no dysarthria, CN's II-XI intact bilaterally and moves all extremities Psychiatric:A+Ox3, euthymic affect Skin: no rashes, normal color, warm/dry Principal Diagnosis ST-Elevation Myocardial Infarction, PCI to RCA Discharge Exam General: WD/WN F in no acute distress. HEENT: Normocephalic, atraumatic.EOMI, PERRL Neck: No JVD. No bruit. Cardiovascular: Regular. No murmurs or rubs. Pulmonary: Clear to auscultation B/L. No rales, rhonchi or wheezing Abdomen: Bowel sounds x 4, soft. No rebound, guarding or tenderness. Extremities: No LE edema, moves extremities Neuro: Awake, alert and oriented x 3. Speech fluent, no facial asymmetry, moves extremities Skin: Warm and dry Discharge Data Allergies Allergy/AdvReac Type Severity Reaction Status Date / Time adhesive Allergy Intermediate Rash Verified 04/02/22 01:38 nicotine Allergy Intermediate rash Verified 05/27/22 21:32 Penicillins Allergy Intermediate HIVES Verified 04/02/22 01:38 Sulfa (Sulfonamide Allergy Intermediate hives Verified 04/02/22 01:38 Antibiotics) Consultations 05/27/22 19:26 Consult Cardiac Rehabilitation Routine Consult Semi Driver Routine 05/27/22 19:38 ED Decision to Admit Stat 05/27/22 19:42 Consult Cardiology Routine Procedures Performed Operation Date: 05/27/22 18:30 Actual Procedures p Cineradiography w/Routine Exam - Caesar Whelan MD p Aspiration/PCI w/SARAH for Stemi - Caesar Whelan MD s Cath, Left with Cors and Vent - Caesar Whelan MD s Ultrasound Vascular Access - Caesar Whelan MD Ordered Studies 05/27/22 18:14 CL Cath Imgs for PACS use only Stat Hospital Course (1) ST elevation (STEMI) myocardial infarction: (2) HTN (hypertension): (3) CAD (coronary artery disease): (4) Bipolar disorder: (5) Tobacco abuse: (6) Dyslipidemia: This is a 52yo F with PMH of CAD (s/p PCI to LAD in 2018, OM1 in 2020), HTN, dyslipidemia, tobacco use disorder, mood disorder and other medical problems listed below who presented as a heart alert and is s/p PCI by Dr. Whelan. Inferoposterior STEMI s/p SARAH to RCA History of CAD Presented as a heart alert with CP starting at 1615, EKG with ST elevations in inferior leads, ST depressions in V1, V2 and elevation in V3 S/p successful PCI to prox. RCA by Dr. Whelan Transient hypotension/bradycardia during PCI- Currently resolved Recovering in ICU, comfortable and asymptomatic Per cardiology: continue dual antiplatelet therapy for at least 1 year (ASA + Brillinta), high dose statin (rosuvastatin increased to 20 mg daily) resume home beta-faustina, add nani as BP allows - BP on lower side -> therefore will not resume beta faustina at this time Echo checked - Normal LV chamber size and wall thickness. Normal LV systolic function, EF 55 to 60%. Mild hypokinesis of the inferior wall with otherwise normal wall motion. Grade 2 diastolic dysfunction. Aortic valve sclerosis mild, without significant aortic valvular stenosis Hypoxemic respiratory failure- resolved Underlying pulmonary hypertension from TTE from 2019 Rule out pulmonary congestion Currently on RA, clinically much improved HTN Patient recently stopped her beta faustina due to feeling lightheaded hold beta faustina, BP on lower side Tobacco use disorder Continues to smoke 0.5-1 ppd. Smoking cessation counseling provided. Bipolar disorder, anxiety Continue home Caplyta, bupropion, buspirone, lorazepam PRN Total Time Total Time Spent Total Time Spent (In Minutes): 40 Discharge Plan Discharge Items Patient Disposition: Home - Self-Care Reason For Visit: STEMI Discharge Diagnosis: ST-Elevation Myocardial Infarction, PCI to RCA Activity: Per Instructions section Non-emergency contact: Primary Care Provider and Salt Maker Call non-emergency contact if: you have any medication questions and your symptoms worsen Follow-up/Referrals: Og Ferrari DO [Physician] - (The cardiology clinic will call you with an appointment. ) Claudette Krishna DO [Outside Practitioners] - (Date & Time 06/05/2022 10:00 AM Provider Roseann Moffett PA-C Department Family Medicine [facility] ) Diet: Heart Healthy Addtl Attending Provider Instructions: Follow up with your primary care doctor within 1 week, the appointment was scheduled for you for June 05. Follow-up with cardiology in 2-4 weeks, you will be contacted about the appointment. Stop taking metoprolol. Take aspirin and Brilinta every day as prescribed. Rosuvastatin was increased to 20 mg daily. Pending Studies at Discharge: No Stand-Alone Forms: My navabi, Smoking Cessation Medications and DC Order Prescriptions: New Brilinta 90 mg Tablet 90 mg PO BID 30 Days Qty: 60 0RF rosuvastatin [Crestor] 20 mg Tablet 20 mg PO QAM Qty: 30 0RF Continued carbidopa-levodopa [Sinemet] 25-100 mg Tablet 3 tab PO HS cyclobenzaprine 10 mg tablet 10 mg PO TID PRN (Reason: muscle spasm) Qty: 20 0RF cyanocobalamin (vitamin B-12) 1,000 mcg tablet extended release 1,000 mcg PO DAILY albuterol sulfate 90 mcg/actuation HFA aerosol inhaler 2 puff INHALATION QID omeprazole 40 mg capsule,delayed release(DR/EC) 40 mg PO DAILYBB sertraline 100 mg tablet 100 mg PO QAM nitroglycerin [Nitrostat] 0.4 mg Tablet, Sublingual 0.4 mg sublingual UD MDD 3 tabs in 15 min PRN (Reason: Chest Pain) aspirin [Aspirin Child] 81 mg Tablet,Chewable 81 mg PO QAM trazodone 150 mg tablet 150 mg PO HS buspirone 30 mg tablet 30 mg PO BID Caplyta 42 mg capsule 42 mg PO HS lorazepam 1 mg tablet 1 mg PO BID PRN (Reason: Anxiety) bupropion HCl 300 mg tablet extended release 24 hr 300 mg PO DAILY folic acid 400 mcg Tablet 0.4 mg PO QAM Discontinued metoprolol succinate 25 mg tablet extended release 24 hr 12.5 mg PO QAM Rx Instructions: stopped taking at home recently rosuvastatin 10 mg tablet 10 mg PO HS Discharge Orders: Discharge Order (Routine); Ordered 05/29/22 Ordered By: Te Ott Admission Data Admit Date/Time: 05/27/22 19:26 Attending Provider: Te Ott Admit Provider: Caesar Whelan Primary Care Provider: Kelsey Duenas Other Providers: Caesar Whelan ; Salvador Galvez ; Hollis Handley ; Og Ferrari
== END 2022-05-29 14:28 | disposition home or self-care (01) | DRG 246 ==
LOC: ED 18:08 → CC 18:28 → 1E 19:26 → SUATTDRO 19:26